=== PATIENT | female | born 1950 | race Two or more races ===

== ENCOUNTER 2018-10-18 13:42 | Inpatient (IN) | payer MEDICARE, MEDICAID ==
[~2018-10-18] VITALS: Ht 160 cm; Wt 64.4 kg
[2018-10-18 13:45] VITALS: BP 132/59
[2018-10-18] MEDS ORDERED: Morphine Sulfate 4mg/ml Inj (IV/IM USE ONLY) IVP ONE (13:45)
--- NOTE | 2018-10-18 13:52 | Emergency Room Report ---
History of Present Illness General Chief Complaint: Abdominal Pain Source: Patient Present Illness HPI The patient had surgery for a burst: 3 weeks ago. She's been vomiting intermittently and now constantly for the last 5 days. She's complaining about diffuse abdominal pain that's intermittent. It's crampy and when it's bad it's 10/10. She states she's been moving her bowels and also passing gas. She denies dysuria. She also denies fevers, chest pain, cough. She's been vomiting bile and there's been no blood. There is no blood in the stool also. Patient denies shortness of breath, leg swelling or calf pain, other joint pain , rashes (the wounds are healing well), headache. She's lost weight. She also feels weak and somewhat dizzy when she stands up. Allergies: Coded Allergies: No Known Allergies (Unverified , 10/18/18) Patient History Past Medical History: see triage record Past Surgical History: other - Abdominal surgery Social History: Denies: smoking, alcohol use, drug use Social History Narrative from [facility] Reviewed Nursing Documentation: PMH: Agreed; PSxH: Agreed Nursing Documentation-PMH Hx Hypertension: Yes Hx Diabetes: Yes Hx Gastrointestinal Problems: Yes - S/P COLON SURGERY Review of Systems All Other Systems: negative except mentioned in HPI Physical Exam Vital Signs Date Time Temp Pulse Resp B/P (MAP) Pulse Ox O2 Delivery O2 Flow Rate FiO2 10/18/18 13:39 98.1 84 18 125/72 98 Room Air Sp02 EP Interpretation: reviewed, normal General Appearance: well appearing, no apparent distress, GCS 15 Head: normocephalic, atraumatic Eyes: bilateral eye normal inspection, bilateral eye PERRL ENT: moist mucus membranes Neck: supple Respiratory: lungs clear, normal breath sounds Cardiovascular #1: regular rate, rhythm Cardiovascular #2: 2+ radial (R) Gastrointestinal: normal inspection, normal bowel sounds, soft, no mass, non- distended, tenderness - Reported but no guarding or rebound, other - Surgical wounds Genitourinary: no CVA tenderness Musculoskeletal: back normal, normal range of motion Neurologic: alert, oriented x3, grossly normal Psychiatric: mood/affect normal Skin: warm/dry, wd healing/no infection noted Medical Decision Making Diagnostic Impression: Primary Impression: Nausea & vomiting Qualified Codes: R11.2 - Nausea with vomiting, unspecified Additional Impressions: Abdominal pain Qualified Codes: R10.84 - Generalized abdominal pain UTI (urinary tract infection) Qualified Codes: N39.0 - Urinary tract infection, site not specified ER Course The patient presents 3 weeks post abdominal surgery with intractable vomiting. Differential includes small bowel obstruction, ileus, gastritis, pancreatitis amongst others. Evaluation will be with EKG, chest x-ray, abdominal films and labs. The patient will be treated with IV hydration and Zofran and morphine. EKG with rate 93 normal sinus rhythm left axis deviation and nonspecific ST-T wave changes. Chest x-ray no infiltrates. Abdomen with dilated loop of small bowel mid abdomen. White count is normal. CMP with elevated BUNs suggesting volume depletion. Urinalysis with pyuria. Rocephin is given for UTI. The patient still is nauseated and unable to tolerate oral liquids at this time. She's admitted to medical floor under the care of Dr. Meehan. She had been discussed with Dr. Flores who will consult if needed. At this time her abdomen is not surgical. Laboratory Tests Test 10/18/18 14:37 White Blood Count 6.4 K/UL (4.8-10.8) Red Blood Count 5.03 M/UL (4.20-5.40) Hemoglobin 13.2 G/DL (12.0-16.0) Hematocrit 39.3 % (37.0-47.0) Mean Corpuscular Volume 78 FL (80-99) L Mean Corpuscular Hemoglobin 26.3 PG (27.0-31.0) L Mean Corpuscular Hemoglobin Concent 33.6 G/DL (32.0-36.0) Red Cell Distribution Width 11.7 % (11.6-14.8) Platelet Count 322 K/UL (150-450) Mean Platelet Volume 6.2 FL (6.5-10.1) L Neutrophils (%) (Auto) 77.9 % (45.0-75.0) H Lymphocytes (%) (Auto) 12.9 % (20.0-45.0) L Monocytes (%) (Auto) 7.9 % (1.0-10.0) Eosinophils (%) (Auto) 0.6 % (0.0-3.0) Basophils (%) (Auto) 0.7 % (0.0-2.0) Prothrombin Time 11.9 SEC (9.30-11.50) H Prothrombin Time INR 1.1 (0.9-1.1) PTT 30 SEC (23-33) Urine Color Yellow Urine Appearance Clear Urine pH 5 (4.5-8.0) Urine Specific [place] 1.025 (1.005-1.035) Urine Protein 2+ (NEGATIVE) H Urine Glucose (UA) 2+ (NEGATIVE) H Urine Ketones 4+ (NEGATIVE) H Urine Blood 1+ (NEGATIVE) H Urine Nitrite Negative (NEGATIVE) Urine Bilirubin 2+ (NEGATIVE) H Urine Ictotest Negative (NEGATIVE) Urine Urobilinogen 4 MG/DL (0.0-1.0) H Urine Leukocyte Esterase 3+ (NEGATIVE) H Urine RBC 0-2 /HPF (0 - 2) Urine WBC 5-10 /HPF (0 - 2) H Urine Squamous Epithelial Cells Moderate /LPF (NONE/OCC) H Urine Calcium Oxalate Crystals Few /LPF (NONE) Urine Bacteria Few /HPF (NONE) Urine Mucus Few /LPF (NONE/OCC) H Sodium Level 139 MMOL/L (136-145) Potassium Level 3.5 MMOL/L (3.5-5.1) Chloride Level 103 MMOL/L (98-107) Carbon Dioxide Level 26 MMOL/L (21-32) Anion Gap 10 mmol/L (5-15) Blood Urea Nitrogen 23 mg/dL (7-18) H Creatinine 0.8 MG/DL (0.55-1.30) Estimate Glomerular Filtration Rate > 60 mL/min (>60) Glucose Level 230 MG/DL (74-106) H Lactic Acid Level 1.60 mmol/L (0.4-2.0) Calcium Level 9.2 MG/DL (8.5-10.1) Total Bilirubin 1.1 MG/DL (0.2-1.0) H Direct Bilirubin 0.3 MG/DL (0.0-0.3) Aspartate Amino Transferase (AST) 13 U/L (15-37) L Alanine Aminotransferase (ALT) 18 U/L (12-78) Alkaline Phosphatase 84 U/L (46-116) Troponin I 0.004 ng/mL (0.000-0.056) Total Protein 7.5 G/DL (6.4-8.2) Albumin 3.0 G/DL (3.4-5.0) L Globulin 4.5 g/dL Albumin/Globulin Ratio 0.7 (1.0-2.7) L Lipase 73 U/L (73-393) EKG Diagnostic Results Rate: normal Rhythm: NSR ST Segments: no acute changes - LAD nSsttw changes Rhythm Strip Diag. Results EP Interpretation: yes Rhythm: NSR, no PVC's, no ectopy Chest X-Ray Diagnostic Results Chest X-Ray Diagnostic Results : Chest X-Ray Ordered: Yes # of Views/Limited/Complete: 1 View Indication: Other EP Interpretation: Yes Interpretation: no consolidation, no effusion, no pneumothorax Impression: No acute disease Electronically Signed by: Electronically signed by Agustin Roblero MD Other X-Ray Diagnostic Results Other X-Ray Diagnostic Results : X-Ray ordered: Abdomen Indication: Pain EP Interpretation: Yes Interpretation: nonspecific bowel gas, other - gas in colon, dilated small bowel mid abdomen Impression: Other Electronically Signed by: Electronically signed by Agustin Roblero MD Status: improved Disposition: ADMITTED INPATIENT Condition: Serious Agustin Roblero MD Oct 18, 2018 13:52
[2018-10-18] MEDS ORDERED: Morphine Sulfate 4mg/ml Inj (IV/IM USE ONLY) ONE (14:47)
[2018-10-18 14:56] LABS: APPEARANCE,URINE CLEAR; BILIRUBIN, URINE 2+ (NEGATIVE); GLUCOSE, URINE (UA) 2+ (NEGATIVE); KETONES,URINE 4+ (NEGATIVE); LEUKOCYTE ESTERASE ,URINE 3+ (NEGATIVE); NITRITE,URINE NEGATIVE (NEGATIVE); PH,URINE 5 (4.5-8.0); PROTEIN,URINE 2+ (NEGATIVE); UROBILINOGEN,URINE 4 MG/DL (0.0-1.0)
[2018-10-18 14:58] LABS: BASOPHILS % (AUTO) 0.7 % (0.0-2.0); EOSINOPHILS % (AUTO) 0.6 % (0.0-3.0); HEMATOCRIT 39.3 % (37.0-47.0); HEMOGLOBIN 13.2 G/DL (12.0-16.0); LYMPHOCYTES % (AUTO) 12.9 % (20.0-45.0); MEAN CORPUSCULAR VOLUME 78 FL (80-99); MONOCYTES % (AUTO) 7.9 % (1.0-10.0); NEUTROPHILS % (AUTO) 77.9 % (45.0-75.0); PLATELET COUNT 322 K/UL (150-450); RED BLOOD COUNT 5.03 M/UL (4.20-5.40); RED CELL DISTRIBUTION WIDTH 11.7 % (11.6-14.8); WHITE BLOOD COUNT 6.4 K/UL (4.8-10.8)
[2018-10-18 14:59] LABS: COLOR,URINE YELLOW
[2018-10-18 15:01] LABS: ANION GAP 10 mmol/L (5-15); BLOOD UREA NITROGEN 23 mg/dL (7-18); CALCIUM 9.2 MG/DL (8.5-10.1); CARBON DIOXIDE 26 MMOL/L (21-32); CHLORIDE 103 MMOL/L (98-107); CREATININE 0.8 MG/DL (0.55-1.30); POTASSIUM 3.5 MMOL/L (3.5-5.1); SODIUM 139 MMOL/L (136-145)
[2018-10-18 15:04] LABS: INR 1.1 (0.9-1.1)
[2018-10-18] MEDS ORDERED: cefTRIAXone 1 GM in NS 55 ML IVPB ONE (15:15)
[2018-10-18 15:17] LABS: ALANINE AMINOTRANSFERASE 18 U/L (12-78); ALBUMIN/GLOBULIN RATIO 0.7 (1.0-2.7); ALKALINE PHOSPHATASE 84 U/L (46-116); ASPARTATE AMINO TRANSFERASE 13 U/L (15-37); BILIRUBIN,TOTAL 1.1 MG/DL (0.2-1.0)
[2018-10-18 15:18] LABS: BILIRUBIN,DIRECT 0.3 MG/DL (0.0-0.3)
[2018-10-18 16:34] VITALS: BP 118/77
[2018-10-18] MEDS ORDERED: UNOBMED (18:06)
[2018-10-18 19:50] VITALS: BP 124/67
[2018-10-18] MEDS ORDERED: Fleet's Enema 133ml RECTAL ONE (20:30)
[2018-10-18 21:00] VITALS: BP 133/63
[2018-10-18] MEDS: Piperacillin/Tazobactam 3.375 GM in NS 110 ML IVPB SCH (22:25)
[2018-10-19] VITALS: BP 110/63
--- NOTE | 2018-10-19 01:45 | History and Physical Report ---
DATE OF ADMISSION: 10/18/2018 HISTORY OF PRESENT ILLNESS: This is a 68-year-old female who was admitted today having small bowel obstruction, recurrent nausea, vomiting, and abdominal pain. The patient was unable to tolerate diet. The patient claims she has a little bit of bowel sounds and no poop. PAST MEDICAL HISTORY: As listed in H and P, history of small bowel obstruction, diabetes, and hypertension. ALLERGIES: NKA. MEDICATIONS: See the list. PHYSICAL EXAMINATION: VITAL SIGNS: Blood pressure 124/67, pulse 77, respirations 18, and temperature 98.1. HEENT: NAD. CHEST: Bilaterally clear. CARDIOVASCULAR: Regular rhythm. No gallop. No murmur. ABDOMEN: Soft. Positive bowel sounds. Open surgical wound on the mid abdomen, which I closed. GENITOURINARY: Examination deferred. LABORATORY EXAMINATION: White count 6.4, hemoglobin 13. Chemistry panel, sodium 139, potassium 3.5, BUN 23, creatinine 0.8, and glucose 230. Urine test also is positive for 3+ leukocyte esterase, 2+ bilirubin, and 4+ ketones. ASSESSMENT: 1. Small bowel obstruction. 2. UTI. 3. Dehydration. 4. Diabetes. PLAN: We will admit on medical floor. Start clear liquid diet. IV fluid, heparin 75 mL/hour, sliding scale, Zosyn. Consider surgery and GI consult. Continue sliding scale medium dose, Accu-Chek daily before meals and at bedtime. Also given Fleet Enema. Surgery consult. Mark Meehan M.D. DR: LESLEE JOB#: [id number] CC:
[2018-10-19 04:00] VITALS: BP 122/63
[2018-10-19] MEDS: Piperacillin/Tazobactam 3.375 GM in NS 110 ML IVPB SCH ×2 (06:04→13:58)
[2018-10-19] MEDS: NovoLOG Insulin Flexpen SUBQ SCH ×4 (06:24→20:48)
[2018-10-19 06:45] LABS: EOSINOPHILS % (AUTO) 2.5 % (0.0-3.0); HEMATOCRIT 33.5 % (37.0-47.0); HEMOGLOBIN 11.3 G/DL (12.0-16.0); LYMPHOCYTES % (AUTO) 22.3 % (20.0-45.0); MEAN CORPUSCULAR VOLUME 78 FL (80-99); MONOCYTES % (AUTO) 11.1 % (1.0-10.0); PLATELET COUNT 270 K/UL (150-450); RED BLOOD COUNT 4.28 M/UL (4.20-5.40); WHITE BLOOD COUNT 5.1 K/UL (4.8-10.8)
[2018-10-19 06:54] LABS: ALANINE AMINOTRANSFERASE 13 U/L (12-78); ALBUMIN 2.5 G/DL (3.4-5.0); ALBUMIN/GLOBULIN RATIO 0.7 (1.0-2.7); ALKALINE PHOSPHATASE 68 U/L (46-116); ANION GAP 9 mmol/L (5-15); ASPARTATE AMINO TRANSFERASE 11 U/L (15-37); BLOOD UREA NITROGEN 12 mg/dL (7-18); CALCIUM 8.1 MG/DL (8.5-10.1); CARBON DIOXIDE 26 MMOL/L (21-32); CHLORIDE 106 MMOL/L (98-107); CREATININE 0.6 MG/DL (0.55-1.30); POTASSIUM 3.1 MMOL/L (3.5-5.1); SODIUM 141 MMOL/L (136-145)
[2018-10-19 08:00] VITALS: BP 132/69
--- NOTE | 2018-10-19 11:43 | Diagnostic Imaging Report ---
Indication: Chest pain Comparison: None A single view chest radiograph was obtained. Findings: No definite infiltrate or pulmonary vascular congestion identified. The heart is enlarged. The aorta is mildly enlarged consistent with atherosclerotic vascular disease. The bones are osteopenic. Impression: No acute disease
[2018-10-19 12:00] VITALS: BP 118/59
--- NOTE | 2018-10-19 12:16 | GI Initial Consult Note ---
History of Present Illness General Date patient seen: Oct 19, 2018 Reason for Hospitalization: Abdominal Pain Referring physician: ELIZABETH CARPIO Reason for Consultation: ABDOMINAL PAIN Present Illness HPI The patient had surgery for a burst: 3 weeks ago. She's been vomiting intermittently and now constantly for the last 5 days. She's complaining about diffuse abdominal pain that's intermittent. It's crampy and when it's bad it's 10/10. She states she's been moving her bowels and also passing gas. She denies dysuria. She also denies fevers, chest pain, cough. She's been vomiting bile and there's been no blood. There is no blood in the stool also. Patient denies shortness of breath, leg swelling or calf pain, other joint pain , rashes (the wounds are healing well), headache. She's lost weight. She also feels weak and somewhat dizzy when she stands up. GI consulted for abdominal pain. Pt seen, awake A&Ox4 NAD stating her abdominal pain has slightly improved. Noted surgical sutures around the umbilical area with recent abdominal surgery. States her N/V has resolved at this time. Denies any constipation or diarrhea. Home Meds Reported Medications Unable to Obtain Medications (UNABLE TO OBTAIN MEDS) 1 Ea Ea 10/18/18 Med list reviewed/reconciled: Yes Allergies: Coded Allergies: No Known Allergies (Unverified , 10/18/18) Patient History History Provided By: Patient, Medical Record PMH Narrative Past Medical History: see triage record Past Surgical History: other - Abdominal surgery Social History: Denies: smoking, alcohol use, drug use Social History Narrative from [facility] Reviewed Nursing Documentation: PMH: Agreed; PSxH: Agreed Nursing Documentation-PMH Hx Hypertension: Yes Hx Diabetes: Yes Hx Gastrointestinal Problems: Yes - S/P COLON SURGERY Past Surgical History: other - abdominal surgery Social History: Denies: smoking, alcohol use, drug use, other Review of Systems All Other Systems: negative except mentioned in HPI Physical Exam Vital Signs Date Time Temp Pulse Resp B/P (MAP) Pulse Ox O2 Delivery O2 Flow Rate FiO2 10/18/18 13:39 98.1 84 18 125/72 98 Room Air Sp02 EP Interpretation: reviewed, normal Labs Laboratory Tests Test 10/18/18 14:37 10/19/18 05:55 White Blood Count 6.4 K/UL (4.8-10.8) 5.1 K/UL (4.8-10.8) Red Blood Count 5.03 M/UL (4.20-5.40) 4.28 M/UL (4.20-5.40) Hemoglobin 13.2 G/DL (12.0-16.0) 11.3 G/DL (12.0-16.0) L Hematocrit 39.3 % (37.0-47.0) 33.5 % (37.0-47.0) L Mean Corpuscular Volume 78 FL (80-99) L 78 FL (80-99) L Mean Corpuscular Hemoglobin 26.3 PG (27.0-31.0) L 26.4 PG (27.0-31.0) L Mean Corpuscular Hemoglobin Concent 33.6 G/DL (32.0-36.0) 33.8 G/DL (32.0-36.0) Red Cell Distribution Width 11.7 % (11.6-14.8) 12.0 % (11.6-14.8) Platelet Count 322 K/UL (150-450) 270 K/UL (150-450) Mean Platelet Volume 6.2 FL (6.5-10.1) L 6.6 FL (6.5-10.1) Neutrophils (%) (Auto) 77.9 % (45.0-75.0) H 63.0 % (45.0-75.0) Lymphocytes (%) (Auto) 12.9 % (20.0-45.0) L 22.3 % (20.0-45.0) Monocytes (%) (Auto) 7.9 % (1.0-10.0) 11.1 % (1.0-10.0) H Eosinophils (%) (Auto) 0.6 % (0.0-3.0) 2.5 % (0.0-3.0) Basophils (%) (Auto) 0.7 % (0.0-2.0) 1.0 % (0.0-2.0) Prothrombin Time 11.9 SEC (9.30-11.50) H Prothromb Time International Ratio 1.1 (0.9-1.1) Activated Partial Thromboplast Time 30 SEC (23-33) Urine Color Yellow Urine Appearance Clear Urine pH 5 (4.5-8.0) Urine Specific [place] 1.025 (1.005-1.035) Urine Protein 2+ (NEGATIVE) H Urine Glucose (UA) 2+ (NEGATIVE) H Urine Ketones 4+ (NEGATIVE) H Urine Blood 1+ (NEGATIVE) H Urine Nitrite Negative (NEGATIVE) Urine Bilirubin 2+ (NEGATIVE) H Urine Ictotest Negative (NEGATIVE) Urine Urobilinogen 4 MG/DL (0.0-1.0) H Urine Leukocyte Esterase 3+ (NEGATIVE) H Urine RBC 0-2 /HPF (0 - 2) Urine WBC 5-10 /HPF (0 - 2) H Urine Squamous Epithelial Cells Moderate /LPF (NONE/OCC) H Urine Calcium Oxalate Crystals Few /LPF (NONE) Urine Bacteria Few /HPF (NONE) Urine Mucus Few /LPF (NONE/OCC) H Sodium Level 139 MMOL/L (136-145) 141 MMOL/L (136-145) Potassium Level 3.5 MMOL/L (3.5-5.1) 3.1 MMOL/L (3.5-5.1) L Chloride Level 103 MMOL/L (98-107) 106 MMOL/L (98-107) Carbon Dioxide Level 26 MMOL/L (21-32) 26 MMOL/L (21-32) Anion Gap 10 mmol/L (5-15) 9 mmol/L (5-15) Blood Urea Nitrogen 23 mg/dL (7-18) H 12 mg/dL (7-18) Creatinine 0.8 MG/DL (0.55-1.30) 0.6 MG/DL (0.55-1.30) Estimat Glomerular Filtration Rate > 60 mL/min (>60) > 60 mL/min (>60) Glucose Level 230 MG/DL (74-106) H 141 MG/DL (74-106) H Lactic Acid Level 1.60 mmol/L (0.4-2.0) Calcium Level 9.2 MG/DL (8.5-10.1) 8.1 MG/DL (8.5-10.1) L Total Bilirubin 1.1 MG/DL (0.2-1.0) H 1.0 MG/DL (0.2-1.0) Direct Bilirubin 0.3 MG/DL (0.0-0.3) Aspartate Amino Transf (AST/SGOT) 13 U/L (15-37) L 11 U/L (15-37) L Alanine Aminotransferase (ALT/SGPT) 18 U/L (12-78) 13 U/L (12-78) Alkaline Phosphatase 84 U/L (46-116) 68 U/L (46-116) Troponin I 0.004 ng/mL (0.000-0.056) Total Protein 7.5 G/DL (6.4-8.2) 6.1 G/DL (6.4-8.2) L Albumin 3.0 G/DL (3.4-5.0) L 2.5 G/DL (3.4-5.0) L Globulin 4.5 g/dL 3.6 g/dL Albumin/Globulin Ratio 0.7 (1.0-2.7) L 0.7 (1.0-2.7) L Lipase 73 U/L (73-393) General Appearance: well appearing, no apparent distress, alert Head: normocephalic EENT: PERRL/EOMI, normal ENT inspection Neck: supple Respiratory: normal breath sounds, no respiratory distress Cardiovascular: normal rate Gastrointestinal: normal inspection, non tender, soft, normal bowel sounds, non -distended Rectal: deferred Genitourinary: no CVA tenderness Musculoskeletal: normal inspection, back normal Neurologic: normal inspection, alert, oriented x3, responsive Psychiatric: normal inspection, judgement/insight normal, memory normal Skin: normal inspection, normal color, no rash, warm/dry, palpation normal, well hydrated Lymphatic: normal inspection, no adenopathy Current Medications Current Medications Medications (Trade) Dose Ordered Sig/Leatha Route PRN Reason Start Time Stop Time Status Last Admin Dose Admin Dextrose (Dextrose 50%) 25 ml Q30M PRN IV Hypoglycemia 10/18/18 22:30 11/17/18 22:29 Dextrose (Dextrose 50%) 50 ml Q30M PRN IV Hypoglycemia 10/18/18 22:30 11/17/18 22:29 Insulin Aspart (NovoLOG) BEFORE MEALS AND HS SUBQ 10/19/18 06:30 11/18/18 06:29 10/19/18 06:24 Morphine Sulfate (Morphine Sulfate) 0.5 mg Q4H PRN IVP Severe Pain (Pain Scale 7-10) 10/18/18 20:30 10/25/18 20:29 10/19/18 00:00 Ondansetron HCl (Zofran) 4 mg Q4H PRN IVP Nausea & Vomiting 10/18/18 20:30 11/17/18 20:29 10/19/18 11:08 Piperacillin Sod/ Tazobactam Sod 3.375 gm/Sodium Chloride 110 ml @ 27.5 mls/hr EVERY 8 HOURS IVPB 10/18/18 22:00 10/23/18 21:59 10/19/18 06:04 Sodium Chloride 1,000 ml @ 100 mls/hr Q10H IV 10/18/18 20:29 11/17/18 20:28 10/18/18 20:42 GI: Plan Problems: (1) H/O abdominal surgery (2) Abdominal pain (3) Nausea & vomiting (4) Dehydration (5) Weight loss Plan history of recent abdominal surgery N/V has resolved at this time KUB performed in ED >> gas in colon, dilated small bowel mid abdomen fu surgical recs APCT ordered pain mgmt zofran prn IV hydration NPO fu labs Discussed with Dr. Benton. Thank you for this patient referral, we will follow. The patient was seen and examined at bedside and all new and available data was reviewed in the patients chart. I agree with the above findings, impression and plan. (Patient seen earlier today. Signature stamp does not reflect patient encounter time.). - MD Padmaja Walker,[facility] INFECTIOUS DISEASE TECHNICIAN Oct 19, 2018 12:16
[2018-10-19] MEDS ORDERED: Isovue-300 100ml vial INJ PRN (12:30)
--- NOTE | 2018-10-19 14:05 | Consultation ---
History of Present Illness General Chief Complaint: Abdominal Pain Referring physician: ELIZABETH CARPIO Reason for Consultation: ABDOMINAL PAIN Present Illness HPI 68-year-old female who was admitted for having small bowel obstruction , recurrent nausea, vomiting, and abdominal pain. the pt has anxiety and is severely worried about her current medical condition. the pt stated that she was unable to sleep the night before no si/hi Allergies: Coded Allergies: No Known Allergies (Unverified , 10/18/18) Medication History Miscellaneous Medications Unable to Obtain Medications (Unable To Obtain Meds), (Reported) Patient History History Provided By: Patient, Medical Record, PMD Healthcare decision maker N Resuscitation status Full Code Advanced Directive on File Past Medical/Surgical History Past Medical/Surgical History: (1) UTI (urinary tract infection) (2) Nausea & vomiting (3) Abdominal pain (4) Dehydration (5) Weight loss Review of Systems Psychiatric: Reports: prior hx, anxiety Physical Exam General Appearance: alert Neurologic: oriented x 3, responsive, depressed affect Last 24 Hour Vital Signs Date Time Temp Pulse Resp B/P (MAP) Pulse Ox O2 Delivery O2 Flow Rate FiO2 10/19/18 12:00 98.2 90 18 118/59 (78) 95 10/19/18 09:00 Room Air 10/19/18 08:00 97.3 84 19 132/69 (90) 94 10/19/18 04:00 98.1 95 19 122/63 (82) 94 10/19/18 00:00 97.6 93 20 110/63 (79) 97 10/18/18 21:00 97.7 87 20 133/63 (86) 95 10/18/18 21:00 Room Air 10/18/18 20:47 Room Air 10/18/18 20:13 98.1 77 18 124/67 100 Room Air 10/18/18 19:50 98.1 77 18 124/67 100 Room Air 10/18/18 16:34 98.7 81 16 118/77 100 Room Air Intake and Output 10/18/18 10/19/18 19:00 07:00 Intake Total 2055 ml 1054.16 ml Balance 2055 ml 1054.16 ml Intake Oral 250 ml IV Total 2055 ml 804.16 ml # Voids 1 1 # Bowel Movements 1 Laboratory Tests Test 10/18/18 14:37 10/19/18 05:55 White Blood Count 6.4 K/UL (4.8-10.8) 5.1 K/UL (4.8-10.8) Red Blood Count 5.03 M/UL (4.20-5.40) 4.28 M/UL (4.20-5.40) Hemoglobin 13.2 G/DL (12.0-16.0) 11.3 G/DL (12.0-16.0) L Hematocrit 39.3 % (37.0-47.0) 33.5 % (37.0-47.0) L Mean Corpuscular Volume 78 FL (80-99) L 78 FL (80-99) L Mean Corpuscular Hemoglobin 26.3 PG (27.0-31.0) L 26.4 PG (27.0-31.0) L Mean Corpuscular Hemoglobin Concent 33.6 G/DL (32.0-36.0) 33.8 G/DL (32.0-36.0) Red Cell Distribution Width 11.7 % (11.6-14.8) 12.0 % (11.6-14.8) Platelet Count 322 K/UL (150-450) 270 K/UL (150-450) Mean Platelet Volume 6.2 FL (6.5-10.1) L 6.6 FL (6.5-10.1) Neutrophils (%) (Auto) 77.9 % (45.0-75.0) H 63.0 % (45.0-75.0) Lymphocytes (%) (Auto) 12.9 % (20.0-45.0) L 22.3 % (20.0-45.0) Monocytes (%) (Auto) 7.9 % (1.0-10.0) 11.1 % (1.0-10.0) H Eosinophils (%) (Auto) 0.6 % (0.0-3.0) 2.5 % (0.0-3.0) Basophils (%) (Auto) 0.7 % (0.0-2.0) 1.0 % (0.0-2.0) Prothrombin Time 11.9 SEC (9.30-11.50) H Prothromb Time International Ratio 1.1 (0.9-1.1) Activated Partial Thromboplast Time 30 SEC (23-33) Urine Color Yellow Urine Appearance Clear Urine pH 5 (4.5-8.0) Urine Specific [place] 1.025 (1.005-1.035) Urine Protein 2+ (NEGATIVE) H Urine Glucose (UA) 2+ (NEGATIVE) H Urine Ketones 4+ (NEGATIVE) H Urine Blood 1+ (NEGATIVE) H Urine Nitrite Negative (NEGATIVE) Urine Bilirubin 2+ (NEGATIVE) H Urine Ictotest Negative (NEGATIVE) Urine Urobilinogen 4 MG/DL (0.0-1.0) H Urine Leukocyte Esterase 3+ (NEGATIVE) H Urine RBC 0-2 /HPF (0 - 2) Urine WBC 5-10 /HPF (0 - 2) H Urine Squamous Epithelial Cells Moderate /LPF (NONE/OCC) H Urine Calcium Oxalate Crystals Few /LPF (NONE) Urine Bacteria Few /HPF (NONE) Urine Mucus Few /LPF (NONE/OCC) H Sodium Level 139 MMOL/L (136-145) 141 MMOL/L (136-145) Potassium Level 3.5 MMOL/L (3.5-5.1) 3.1 MMOL/L (3.5-5.1) L Chloride Level 103 MMOL/L (98-107) 106 MMOL/L (98-107) Carbon Dioxide Level 26 MMOL/L (21-32) 26 MMOL/L (21-32) Anion Gap 10 mmol/L (5-15) 9 mmol/L (5-15) Blood Urea Nitrogen 23 mg/dL (7-18) H 12 mg/dL (7-18) Creatinine 0.8 MG/DL (0.55-1.30) 0.6 MG/DL (0.55-1.30) Estimat Glomerular Filtration Rate > 60 mL/min (>60) > 60 mL/min (>60) Glucose Level 230 MG/DL (74-106) H 141 MG/DL (74-106) H Lactic Acid Level 1.60 mmol/L (0.4-2.0) Calcium Level 9.2 MG/DL (8.5-10.1) 8.1 MG/DL (8.5-10.1) L Total Bilirubin 1.1 MG/DL (0.2-1.0) H 1.0 MG/DL (0.2-1.0) Direct Bilirubin 0.3 MG/DL (0.0-0.3) Aspartate Amino Transf (AST/SGOT) 13 U/L (15-37) L 11 U/L (15-37) L Alanine Aminotransferase (ALT/SGPT) 18 U/L (12-78) 13 U/L (12-78) Alkaline Phosphatase 84 U/L (46-116) 68 U/L (46-116) Troponin I 0.004 ng/mL (0.000-0.056) Total Protein 7.5 G/DL (6.4-8.2) 6.1 G/DL (6.4-8.2) L Albumin 3.0 G/DL (3.4-5.0) L 2.5 G/DL (3.4-5.0) L Globulin 4.5 g/dL 3.6 g/dL Albumin/Globulin Ratio 0.7 (1.0-2.7) L 0.7 (1.0-2.7) L Lipase 73 U/L (73-393) Microbiology Date/Time Source Procedure Growth Status 10/18/18 18:00 Rectum VRE Culture Pending Resulted 10/18/18 18:00 Rectum - Preliminary Resulted Height (Feet): 5 Height (Inches): 3.00 Weight (Pounds): 130 Medications Current Medications Medications (Trade) Dose Ordered Sig/Leatha Route PRN Reason Start Time Stop Time Status Last Admin Dose Admin Barium Sulfate (Readi-Cat 2) 450 ml NOW PRN ORAL Radiology Procedure 10/19/18 12:30 10/21/18 12:22 Dextrose (Dextrose 50%) 25 ml Q30M PRN IV Hypoglycemia 10/18/18 22:30 11/17/18 22:29 Dextrose (Dextrose 50%) 50 ml Q30M PRN IV Hypoglycemia 10/18/18 22:30 11/17/18 22:29 Insulin Aspart (NovoLOG) BEFORE MEALS AND HS SUBQ 10/19/18 06:30 11/18/18 06:29 10/19/18 06:24 Iopamidol (Isovue-300 100ml) 100 ml NOW PRN INJ Radiology Procedure 10/19/18 12:30 10/21/18 12:29 Morphine Sulfate (Morphine Sulfate) 0.5 mg Q4H PRN IVP Severe Pain (Pain Scale 7-10) 10/18/18 20:30 10/25/18 20:29 10/19/18 00:00 Ondansetron HCl (Zofran) 4 mg Q4H PRN IVP Nausea & Vomiting 10/18/18 20:30 11/17/18 20:29 10/19/18 11:08 Piperacillin Sod/ Tazobactam Sod 3.375 gm/Sodium Chloride 110 ml @ 27.5 mls/hr EVERY 8 HOURS IVPB 10/18/18 22:00 10/23/18 21:59 10/19/18 13:58 Sodium Chloride 1,000 ml @ 100 mls/hr Q10H IV 10/18/18 20:29 11/17/18 20:28 10/18/18 20:42 Assessment/Plan Assessment/Plan anxiety d/o ativan prn the pt was provided with Anna Rios MD Oct 19, 2018 14:05
[2018-10-19] MEDS: Morphine Sulfate 2mg/ml Inj IVP PRN ×2 (15:02)
--- NOTE | 2018-10-19 15:26 | Consultation ---
History of Present Illness General Date patient seen: Oct 19, 2018 Chief Complaint: Abdominal Pain Referring physician: ELIZABETH CARPIO Reason for Consultation: ABDOMINAL PAIN Present Illness HPI 68F presented to ED with complaints of abdominal pain. States abdominal surgery at [facility] 2-3 weeks ago and since has been having abdominal pain, nausea, emesis. intermittent flatus and BM. Pain cramping generalized pain. non bloody emesis. Came to ED for evaluation. labs okay. KUB noted. Surgery called to evaluate for possible SBO. patient seen, chart reviewed, patient examined. does not know why she had surgery but states for colon issue ?mass? perf? Allergies: Coded Allergies: No Known Allergies (Unverified , 10/18/18) Medication History Miscellaneous Medications Unable to Obtain Medications (Unable To Obtain Meds), (Reported) Patient History History Provided By: Patient, Medical Record, PMD Healthcare decision maker N Resuscitation status Full Code Advanced Directive on File Past Medical/Surgical History Past Medical/Surgical History: (1) UTI (urinary tract infection) (2) Nausea & vomiting (3) Abdominal pain (4) Dehydration (5) Weight loss Review of Systems All Other Systems: negative except mentioned in HPI Physical Exam General Appearance: no apparent distress, alert Lines, tubes and drains: peripheral HEENT: mucous membranes moist Neck: normal inspection Respiratory/Chest: normal breath sounds, no respiratory distress, no accessory muscle use Cardiovascular/Chest: normal rate Abdomen: soft, hypoactive bowel sounds, guarding, tender Extremities: normal inspection Skin Exam: warm/dry Neurologic: alert, responsive Last 24 Hour Vital Signs Date Time Temp Pulse Resp B/P (MAP) Pulse Ox O2 Delivery O2 Flow Rate FiO2 10/19/18 12:00 98.2 90 18 118/59 (78) 95 10/19/18 09:00 Room Air 10/19/18 08:00 97.3 84 19 132/69 (90) 94 10/19/18 04:00 98.1 95 19 122/63 (82) 94 10/19/18 00:00 97.6 93 20 110/63 (79) 97 10/18/18 21:00 97.7 87 20 133/63 (86) 95 10/18/18 21:00 Room Air 10/18/18 20:47 Room Air 10/18/18 20:13 98.1 77 18 124/67 100 Room Air 10/18/18 19:50 98.1 77 18 124/67 100 Room Air 10/18/18 16:34 98.7 81 16 118/77 100 Room Air Intake and Output 10/18/18 10/19/18 19:00 07:00 Intake Total 2055 ml 1054.16 ml Balance 2055 ml 1054.16 ml Intake Oral 250 ml IV Total 2055 ml 804.16 ml # Voids 1 1 # Bowel Movements 1 Laboratory Tests Test 10/19/18 05:55 White Blood Count 5.1 K/UL (4.8-10.8) Red Blood Count 4.28 M/UL (4.20-5.40) Hemoglobin 11.3 G/DL (12.0-16.0) L Hematocrit 33.5 % (37.0-47.0) L Mean Corpuscular Volume 78 FL (80-99) L Mean Corpuscular Hemoglobin 26.4 PG (27.0-31.0) L Mean Corpuscular Hemoglobin Concent 33.8 G/DL (32.0-36.0) Red Cell Distribution Width 12.0 % (11.6-14.8) Platelet Count 270 K/UL (150-450) Mean Platelet Volume 6.6 FL (6.5-10.1) Neutrophils (%) (Auto) 63.0 % (45.0-75.0) Lymphocytes (%) (Auto) 22.3 % (20.0-45.0) Monocytes (%) (Auto) 11.1 % (1.0-10.0) H Eosinophils (%) (Auto) 2.5 % (0.0-3.0) Basophils (%) (Auto) 1.0 % (0.0-2.0) Sodium Level 141 MMOL/L (136-145) Potassium Level 3.1 MMOL/L (3.5-5.1) L Chloride Level 106 MMOL/L (98-107) Carbon Dioxide Level 26 MMOL/L (21-32) Anion Gap 9 mmol/L (5-15) Blood Urea Nitrogen 12 mg/dL (7-18) Creatinine 0.6 MG/DL (0.55-1.30) Estimat Glomerular Filtration Rate > 60 mL/min (>60) Glucose Level 141 MG/DL (74-106) H Calcium Level 8.1 MG/DL (8.5-10.1) L Total Bilirubin 1.0 MG/DL (0.2-1.0) Aspartate Amino Transf (AST/SGOT) 11 U/L (15-37) L Alanine Aminotransferase (ALT/SGPT) 13 U/L (12-78) Alkaline Phosphatase 68 U/L (46-116) Total Protein 6.1 G/DL (6.4-8.2) L Albumin 2.5 G/DL (3.4-5.0) L Globulin 3.6 g/dL Albumin/Globulin Ratio 0.7 (1.0-2.7) L Microbiology Date/Time Source Procedure Growth Status 10/18/18 18:00 Rectum VRE Culture Pending Resulted 10/18/18 18:00 Rectum - Preliminary Resulted Height (Feet): 5 Height (Inches): 3.00 Weight (Pounds): 130 Medications Current Medications Medications (Trade) Dose Ordered Sig/Leatha Route PRN Reason Start Time Stop Time Status Last Admin Dose Admin Barium Sulfate (Readi-Cat 2) 450 ml NOW PRN ORAL Radiology Procedure 10/19/18 12:30 10/21/18 12:22 Dextrose (Dextrose 50%) 25 ml Q30M PRN IV Hypoglycemia 10/18/18 22:30 11/17/18 22:29 Dextrose (Dextrose 50%) 50 ml Q30M PRN IV Hypoglycemia 10/18/18 22:30 11/17/18 22:29 Insulin Aspart (NovoLOG) BEFORE MEALS AND HS SUBQ 10/19/18 06:30 11/18/18 06:29 10/19/18 06:24 Iopamidol (Isovue-300 100ml) 100 ml NOW PRN INJ Radiology Procedure 10/19/18 12:30 10/21/18 12:29 Morphine Sulfate (Morphine Sulfate) 0.5 mg Q4H PRN IVP Severe Pain (Pain Scale 7-10) 10/18/18 20:30 10/25/18 20:29 10/19/18 15:02 Ondansetron HCl (Zofran) 4 mg Q4H PRN IVP Nausea & Vomiting 10/18/18 20:30 11/17/18 20:29 10/19/18 11:08 Piperacillin Sod/ Tazobactam Sod 3.375 gm/Sodium Chloride 110 ml @ 27.5 mls/hr EVERY 8 HOURS IVPB 10/18/18 22:00 10/23/18 21:59 10/19/18 13:58 Sodium Chloride 1,000 ml @ 100 mls/hr Q10H IV 10/18/18 20:29 11/17/18 20:28 10/18/18 20:42 Assessment/Plan Problem List: (1) Abdominal pain Assessment & Plan: likely post op ileus n/v improved currently labs okay abd soft, mild distention, tender/guarding but no peritonitis. surgical wounds c/d/i -Agree with CT scan A/P -NPO -IV fluids -will follow with recs. thank you ICD Codes: R10.9 - Unspecified abdominal pain SNOMED: 27394088 Qualifiers: Qualified Codes: R10.84 - Generalized abdominal pain Status: stable José Miguel Flores Oct 19, 2018 15:26
[2018-10-19 16:00] VITALS: BP 122/67
[2018-10-19] MEDS ORDERED: Cefepime HCl 1 GM in D5W 55 ML IVPB SCH (17:00)
[2018-10-19 20:00] VITALS: BP 131/72
--- NOTE | 2018-10-19 23:30 | Progress Note ---
DATE: 10/19/2018 NOTE: POOR AUDIO SUBJECTIVE: This is a nausea and vomiting is improving. . OBJECTIVE: VITAL SIGNS: Otherwise, vital signs are stable. CHEST: Bilaterally clear. CARDIOVASCULAR: Irregular rhythm. ABDOMEN: Soft. Mild tenderness. NEUROLOGICAL: No focal deficits. ASSESSMENT AND PLAN: 1. Encephalopathy. 2. Possible ileus. 3. . 4. . 5. Hypertension. Will continue with liquid diet. Get GI consult and Surgery consult. 6. Continue liquid diet. Continue antibiotics, IV fluids. Mark Meehan M.D. DR: RADHA JOB#: [id number] CC:
--- NOTE | 2018-10-19 23:30 | Consultation ---
DATE OF CONSULTATION: 10/19/2018 INFECTIOUS DISEASE CONSULTATION: CONSULTING PHYSICIAN: Tahir Cervantes M.D. REFERRING PHYSICIAN: Bertin Meehan M.D. REASON FOR CONSULTATION: Urinary tract infection, recommendation for antibiotics treatment. HISTORY OF PRESENT ILLNESS: The patient is a 68-year-old female with no significant past medical history except colon mass, status post colon surgery done on 09/29/2018 presented to [facility] emergency room for progressive abdominal pain, nausea, and vomiting for the last 5 days. The patient had a colonoscopy in July, which showed polyps and possibly hemorrhoids as per her report. So, she was scheduled for colon surgery on 09/29/2018, which she had it done at [place] laparoscopically with colon resection. The patient developed abdominal pain, which has been progressive right after her surgery for the last 3 weeks. She developed also nausea and vomiting, which has been constant. The patient unable to tolerate any oral intake. So, she was sent to the emergency room for evaluation. In the ED, the patient had a temperature of 98.1 with a pulse of 84. Chest x-ray did not show any acute infiltration. The patient had an urinalysis, which showed evidence of infection. So, Infectious Disease consultation was requested for antibiotics treatment and further management. REVIEW OF SYSTEMS: A 14-point of systems reviewed were all negative apart from the one I mentioned above in my History and Physical. PAST MEDICAL HISTORY: Significant for colon polyps, hemorrhoids, status post colon surgery. PAST SURGICAL HISTORY: She had colon surgery on 09/29/2018 for possible colon tumor. SOCIAL HISTORY: The patient originally from [facility]. Denied using any drugs, tobacco, or alcohol. She lives at home with family. FAMILY HISTORY: Noncontributory. ALLERGIES: No known drug allergy. MEDICATIONS: The patient was started on Zosyn by the primary provider. For the rest of her medications, please refer to [facility]. LABORATORY DATA: Showed white count of 5.1, hemoglobin of 11.3, and platelet count of 270,000. BUN of 12 and creatinine of 0.6. AST of 11 and ALT of 13. Urinalysis showed +3 leukocyte esterase, wbcs 5 to 10, and few bacteria. IMAGING: Chest x-ray showed no acute disease. PHYSICAL EXAMINATION: VITAL SIGNS: Temperature 98.2, pulse 90, respirations 18, blood pressure 118/59, and saturation 95% on room air. GENERAL: Middle-aged female, lying in bed, awake, alert, responsive, not in acute distress. Complained of abdominal pain. HEENT: Normocephalic and atraumatic. Pupils are reactive to light equally. Moist oral mucosa. No exudate or thrush. NECK: Supple. No lymphadenopathy. Trachea is midline. CARDIOVASCULAR: Regular rate and rhythm. No murmur or gallop. LUNGS: Clear bilaterally. No wheezing or rhonchi. Diminished breathing sounds at the bases. ABDOMEN: Soft. Distended. Tender in the periumbilical area. Absent bowel sounds. Old surgical scar wound in the umbilical area clean and dry without any drainage or dehiscence. No ascites. EXTREMITIES: No edema or cyanosis. ASSESSMENT AND RECOMMENDATION: 1. Urinary tract infection. We will switch Zosyn to cefepime at this point pending urine culture results, which was not sent. We will order urine culture at this point. 2. Abdominal pain. Rule out obstruction. Continue supportive care with IV fluid hydration, pain management, and NPO for now. Surgery is following. 3. Nausea and vomiting, suspect due to the above. Continue supportive care with antinausea medicine and hydration as needed. Thank you for the consult. ID will continue to follow. Please feel free to call with any question. Tahir Cervantes M.D. DR: MEIR JOB#: [id number] CC:
[2018-10-20] VITALS: BP 109/70
[2018-10-20 04:00] VITALS: BP 126/75
[2018-10-20] MEDS: NovoLOG Insulin Flexpen SUBQ SCH ×4 (06:30→20:41)
[2018-10-20 08:00] VITALS: BP 104/20
[2018-10-20 09:00] LABS: EOSINOPHILS % (AUTO) 2.5 % (0.0-3.0); HEMATOCRIT 37.3 % (37.0-47.0); HEMOGLOBIN 12.7 G/DL (12.0-16.0); MEAN CORPUSCULAR VOLUME 78 FL (80-99); MONOCYTES % (AUTO) 11.7 % (1.0-10.0); NEUTROPHILS % (AUTO) 58.9 % (45.0-75.0); PLATELET COUNT 279 K/UL (150-450); RED BLOOD COUNT 4.77 M/UL (4.20-5.40); RED CELL DISTRIBUTION WIDTH 11.7 % (11.6-14.8); WHITE BLOOD COUNT 4.4 K/UL (4.8-10.8)
[2018-10-20 09:16] LABS: ANION GAP 10 mmol/L (5-15); BLOOD UREA NITROGEN 6 mg/dL (7-18); CALCIUM 8.3 MG/DL (8.5-10.1); CARBON DIOXIDE 26 MMOL/L (21-32); CHLORIDE 106 MMOL/L (98-107); CREATININE 0.5 MG/DL (0.55-1.30); PHOSPHORUS 2.4 MG/DL (2.5-4.9); POTASSIUM 2.9 MMOL/L (3.5-5.1); SODIUM 142 MMOL/L (136-145)
--- NOTE | 2018-10-20 11:52 | Consultation ---
Consult Note Consult Note HEMATOLOGY-ONCOLOGY CONSULTATION REFERRING PHYSICIAN: Bertin Meehan REASON FOR CONSULT: Leukopenia, colon ca DATE OF CONSULT: 10/20/2018 HISTORY OF PRESENT ILLNESS: The patient is a 68-year-old female with no significant past medical history except colon mass, status post colon surgery done on 09/29/[address] [facility] emergency room for progressive abdominal pain, nausea, and vomiting for the last 5 days. The patient had a colonoscopy in July, which showed polyps and possibly hemorrhoids as per her report. Pt had colon surgery on 09/29/2018, at [place] laparoscopically with colon resection. The patient developed abdominal pain, which has been progressive right after her surgery for the last 3 weeks. She developed also nausea and vomiting, which has been constant. The patient is unable to tolerate any oral intake. She was sent to the emergency room for evaluation. In the ED, the patient had a temperature of 98.1 with a pulse of 84. Chest x-ray did not show any acute infiltration. The patient had an urinalysis, which showed evidence of infection. Hematology service consulted for the evaluation of leukopenia. Labs and imaging have been reviewed. PAST MEDICAL HISTORY: Significant for colon polyps, hemorrhoids, status post colon surgery. PAST SURGICAL HISTORY: She had colon surgery on 09/29/2018 for possible colon tumor. SOCIAL HISTORY: The patient originally from [facility]. Denied using any drugs, tobacco, or alcohol. She lives at home with family. FAMILY HISTORY: Noncontributory. ALLERGIES: No known drug allergy. MEDICATIONS: Current meds have been reviewed. LABORATORY DATA: Showed white count of 5.1, hemoglobin of 11.3, and platelet count of 270,000. BUN of 12 and creatinine of 0.6. AST of 11 and ALT of 13. Urinalysis showed +3 leukocyte esterase, wbcs 5 to 10, and few bacteria. IMAGING: Chest x-ray showed no acute disease. REVIEW OF SYSTEMS: A 14-point of systems reviewed were all negative unless mentioned in HPI. PHYSICAL EXAMINATION: VITAL SIGNS: Have been reviewed. GENERAL: Middle-aged female, lying in bed, awake, alert, responsive, not in acute distress. Complained of abdominal pain. HEENT: Normocephalic and atraumatic. Pupils are reactive to light equally. Moist oral mucosa. No exudate or thrush. NECK: Supple. No lymphadenopathy. Trachea is midline. CARDIOVASCULAR: Regular rate and rhythm. No murmur or gallop. LUNGS: Clear bilaterally. No wheezing or rhonchi. Diminished breathing sounds at the bases. ABDOMEN: Soft. Distended. Tender in the periumbilical area. Absent bowel sounds. Old surgical scar wound in the umbilical area clean and dry without any drainage or dehiscence. No ascites. EXTREMITIES: No edema or cyanosis. ASSESSMENT AND RECOMMENDATIONS # Stage I Colon cancer. s/p surgery Status post partial colon resection in the area of the splenic flexure. Severe pancolitis and pneumatosis involving a dilated preanastomotic segment of the colon (Right hemicolon to splenic flexure) . Some degree of partial obstruction at the level of the anastomosis is not excluded. Postanastomotic descending and sigmoid colon is nondilated but shows wall thickening and moderate inflammation as well. --> no hx of mets --> cea has been ordered --> outpatient screening/surveillance with colo prn # Leukopenia - multiple etiologies possible including most common which are medication-induced, infection versus viral syndrome --> Continue to monitor and trend wbc for improvement --> Hep panel and HIV have been ordered --> US abd ordered to r/o cirrhosis and hepatosplenomegaly # Urinary tract infection. ID is following, appreciate recs. --> On abx, empiric tx. --> urine culture results pending # Abdominal pain. Surgery and GI are following, appreciate recs. --> Rule out obstruction. --> Continue supportive care with --> IV fluid hydration, pain management, and NPO for now. # Nausea and vomiting, suspect due to the above. --> Continue supportive care with antinausea medicine and hydration as needed. GREATLY APPRECIATE CONSULTATION. Jose Barreto MD Oct 20, 2018 11:52
--- NOTE | 2018-10-20 11:59 | Diagnostic Imaging Report ---
Indication: Abdominal pain. Status post partial colon resection for "mass" 09/29/2018. Patient presenting with abdominal pain, nausea and vomiting for the last 5 days. Technique: Continuous helical transaxial imaging of the abdomen and pelvis was obtained from the lung bases to the pubic symphysis during intravenous contrast administration. Coronal 2-D reformats were also obtained. Study obtained in a Siemens sensation [address] Automatic Exposure Control was utilized. Total Dose length Product (DLP): 798.[address] Dose Index Volume (CTDIvol): 14.56 mGy Comparison: None Findings: There is severe dilatation of the proximal colon to the area of colonic anastomosis (axial image 52 ). In addition, the dilated proximal segment which includes the cecum, ascending colon through the transverse colon exhibits abnormal wall thickening with pneumatosis. The post anastomotic colon which includes the descending colon and sigmoid also appears abnormal with wall thickening. There is a moderate degree of inflammation surrounding both the pre and post and anastomotic: Likely indicative of a colitis. The most severe area of inflammation is in the left side near the anastomosis. There is no free air to suggest perforation at this time. There is a small amount of free fluid within the pelvis. Small bowel appears nondilated. The liver and spleen, pancreas appear unremarkable. There are hypodensities within the kidneys nonspecific. There is ill-defined hypodensity in the central left kidney measuring about 1.2 cm nonspecific. Gallbladder is distended. There is an anterior abdominal wall scar noted consistent with recent surgery. Uterus is present unremarkable. The bladder is nondistended. IMPRESSION: Status post partial colon resection in the area of the splenic flexure. Severe pancolitis and pneumatosis involving a dilated preanastomotic segment of the colon (Right hemicolon to splenic flexure). Some degree of partial obstruction at the level of the anastomosis is not excluded. Postanastomotic descending and sigmoid colon is nondilated but shows wall thickening and moderate inflammation as well. No abscess or evidence of perforation. Mild to moderate free fluid. Other incidental findings as above The CT scanner at [facility] is accredited by the [employer] and the scans are performed using dose optimization techniques as appropriate to a performed exam including Automatic Exposure control.
[2018-10-20 12:00] VITALS: BP 120/67
--- NOTE | 2018-10-20 13:13 | GI Progress Note ---
Assessment/Plan Problems: (1) H/O abdominal surgery ICD Codes: Z98.890 - Other specified postprocedural states SNOMED: 563750308, 526256692 (2) Weight loss ICD Codes: R63.4 - Abnormal weight loss SNOMED: 16453338, 138485868 (3) Dehydration ICD Codes: E86.0 - Dehydration SNOMED: 71610838 (4) Abdominal pain ICD Codes: R10.9 - Unspecified abdominal pain SNOMED: 08307893 Qualifiers: Qualified Codes: R10.84 - Generalized abdominal pain (5) Nausea & vomiting ICD Codes: R11.2 - Nausea with vomiting, unspecified SNOMED: 43339211 Qualifiers: Qualified Codes: R11.2 - Nausea with vomiting, unspecified Status: unchanged Status Narrative Discussed with Dr. Benton. Assessment/Plan CT AP reviewed >> - Status post partial colon resection in the area of the splenic flexure. - Severe pancolitis and pneumatosis involving a dilated preanastomotic segment of the colon(Right hemicolon to splenic flexure). - Some degree of partial obstruction at the level of the anastomosis is not excluded. - Postanastomotic descending and sigmoid colon is nondilated but shows wall thickening and moderate inflammation as well. - No abscess or evidence of perforation. - Mild to moderate free fluid. history of recent abdominal surgery N/V has resolved at this time fu surgical recs pain mgmt zofran prn IV hydration NPO fu labs The patient was seen and examined at bedside and all new and available data was reviewed in the patients chart. I agree with the above findings, impression and plan. (Patient seen earlier today. Signature stamp does not reflect patient encounter time.). - Pritesh Benton MD Subjective Gastrointestinal/Abdominal: Reports: abdominal pain Objective Last 24 Hour Vital Signs Date Time Temp Pulse Resp B/P (MAP) Pulse Ox O2 Delivery O2 Flow Rate FiO2 10/20/18 09:00 Room Air 10/20/18 08:00 98.2 65 18 104/20 (48) 98 10/20/18 04:00 97.8 103 19 126/75 (92) 96 10/20/18 00:00 98.5 101 18 109/70 (83) 94 10/19/18 21:00 Room Air 10/19/18 20:00 98.4 100 20 131/72 (91) 96 10/19/18 16:00 98.2 89 17 122/67 (85) 95 10/19/18 15:32 98.2 Intake and Output 10/19/18 10/20/18 19:00 07:00 Intake Total 1137.5 ml 1420 ml Balance 1137.5 ml 1420 ml Intake Oral 240 ml 120 ml IV Total 897.5 ml 1300 ml # Voids 3 5 Laboratory Tests Test 10/20/18 08:07 White Blood Count 4.4 K/UL (4.8-10.8) L Red Blood Count 4.77 M/UL (4.20-5.40) Hemoglobin 12.7 G/DL (12.0-16.0) Hematocrit 37.3 % (37.0-47.0) Mean Corpuscular Volume 78 FL (80-99) L Mean Corpuscular Hemoglobin 26.5 PG (27.0-31.0) L Mean Corpuscular Hemoglobin Concent 33.9 G/DL (32.0-36.0) Red Cell Distribution Width 11.7 % (11.6-14.8) Platelet Count 279 K/UL (150-450) Mean Platelet Volume 6.3 FL (6.5-10.1) L Neutrophils (%) (Auto) 58.9 % (45.0-75.0) Lymphocytes (%) (Auto) 26.0 % (20.0-45.0) Monocytes (%) (Auto) 11.7 % (1.0-10.0) H Eosinophils (%) (Auto) 2.5 % (0.0-3.0) Basophils (%) (Auto) 1.0 % (0.0-2.0) Sodium Level 142 MMOL/L (136-145) Potassium Level 2.9 MMOL/L (3.5-5.1) L Chloride Level 106 MMOL/L (98-107) Carbon Dioxide Level 26 MMOL/L (21-32) Anion Gap 10 mmol/L (5-15) Blood Urea Nitrogen 6 mg/dL (7-18) L Creatinine 0.5 MG/DL (0.55-1.30) L Estimat Glomerular Filtration Rate > 60 mL/min (>60) Glucose Level 111 MG/DL (74-106) H Calcium Level 8.3 MG/DL (8.5-10.1) L Phosphorus Level 2.4 MG/DL (2.5-4.9) L Magnesium Level 1.5 MG/DL (1.8-2.4) L Carcinoembryonic Antigen Pending Microbiology Date/Time Source Procedure Growth Status 10/19/18 18:00 Indwelling Cath Urine Culture - Preliminary NO GROWTH Resulted Height (Feet): 5 Height (Inches): 3.00 Weight (Pounds): 130 General Appearance: WD/WN, no apparent distress, alert Cardiovascular: normal rate Respiratory/Chest: normal breath sounds, no respiratory distress Abdominal Exam: normal bowel sounds, non tender, soft Extremities: normal range of motion, non-tender Keyonna Giang NP Oct 20, 2018 13:13
--- NOTE | 2018-10-20 14:58 | Infectious Diseases Prog Note ---
Assessment/Plan Problems: (1) Pneumatosis intestinalis of large intestine Assessment & Plan: at the anastomosis site, suspect ischemia related to recent surgery , will broaden her coverage to zosyn , continue conservative management , with bowel rest and hydration . (2) UTI (urinary tract infection) Assessment & Plan: already on zosyn pending culture (3) Nausea & vomiting Assessment & Plan: due to the above, continue supportive care (4) Abdominal pain Assessment & Plan: due to the above, continue pain management as needed (5) Dehydration Assessment & Plan: continue IVF for hydration with close monitor of electrolytes Subjective Constitutional: Reports: no symptoms HEENT: Reports: no symptoms Respiratory: Reports: no symptoms Breasts: Reports: no symptoms Cardiovascular: Reports: no symptoms Gastrointestinal/Abdominal: Reports: nausea, diarrhea, bloating Genitourinary: Reports: no symptoms Neurologic: Reports: no symptoms Psychiatric: Reports: no symptoms Skin: Reports: no symptoms Endocrine: Reports: no symptoms Hematologic: Reports: no symptoms Musculoskeletal: Reports: no symptoms Allergies: Coded Allergies: No Known Allergies (Unverified , 10/18/18) Objective Vital Signs Last 24 Hour Vital Signs Date Time Temp Pulse Resp B/P (MAP) Pulse Ox O2 Delivery O2 Flow Rate FiO2 10/20/18 09:00 Room Air 10/20/18 08:00 98.2 65 18 104/20 (48) 98 10/20/18 04:00 97.8 103 19 126/75 (92) 96 10/20/18 00:00 98.5 101 18 109/70 (83) 94 10/19/18 21:00 Room Air 10/19/18 20:00 98.4 100 20 131/72 (91) 96 10/19/18 16:00 98.2 89 17 122/67 (85) 95 10/19/18 15:32 98.2 Height (Feet): 5 Height (Inches): 3.00 Weight (Pounds): 130 General Appearance: WD/WN, no acute distress HEENT: normocephalic, atraumatic, anicteric, mucous membranes moist, PERRL, EOMI, pharynx normal, supple, no JVD Respiratory/Chest: chest wall non-tender, lungs clear, normal breath sounds, no respiratory distress, no accessory muscle use Cardiovascular: normal peripheral pulses, normal rate, regular rhythm, no gallop/murmur, no JVD Abdomen: no organomegaly, no mass, no scars, hypoactive bowel sounds, distended , tender Genitourinary: normal external genitalia Extremities: no cyanosis, no clubbing Skin: no rash, no lesions, no ulcers Neurologic/Psychiatric: alert, oriented x 3, responsive Lymphatic: no neck adenopathy, no groin adenopathy Musculoskeletal: normal muscle bulk, no effusion Microbiology Date/Time Source Procedure Growth Status 10/18/18 18:00 Nasal Nares MRSA Culture - Final NO METHICILLIN RESISTANT STAPH AUREUS... Complete 10/19/18 18:00 Indwelling Cath Urine Culture - Preliminary NO GROWTH Resulted 10/18/18 18:00 Rectum VRE Culture - Final Enterococcus Faecium - Vre Complete 10/18/18 18:00 Rectum - Final NO CARBAPENEM-RESISTANT ENTEROBACTERI... Complete Laboratory Tests Test 10/20/18 08:07 White Blood Count 4.4 K/UL (4.8-10.8) L Red Blood Count 4.77 M/UL (4.20-5.40) Hemoglobin 12.7 G/DL (12.0-16.0) Hematocrit 37.3 % (37.0-47.0) Mean Corpuscular Volume 78 FL (80-99) L Mean Corpuscular Hemoglobin 26.5 PG (27.0-31.0) L Mean Corpuscular Hemoglobin Concent 33.9 G/DL (32.0-36.0) Red Cell Distribution Width 11.7 % (11.6-14.8) Platelet Count 279 K/UL (150-450) Mean Platelet Volume 6.3 FL (6.5-10.1) L Neutrophils (%) (Auto) 58.9 % (45.0-75.0) Lymphocytes (%) (Auto) 26.0 % (20.0-45.0) Monocytes (%) (Auto) 11.7 % (1.0-10.0) H Eosinophils (%) (Auto) 2.5 % (0.0-3.0) Basophils (%) (Auto) 1.0 % (0.0-2.0) Sodium Level 142 MMOL/L (136-145) Potassium Level 2.9 MMOL/L (3.5-5.1) L Chloride Level 106 MMOL/L (98-107) Carbon Dioxide Level 26 MMOL/L (21-32) Anion Gap 10 mmol/L (5-15) Blood Urea Nitrogen 6 mg/dL (7-18) L Creatinine 0.5 MG/DL (0.55-1.30) L Estimat Glomerular Filtration Rate > 60 mL/min (>60) Glucose Level 111 MG/DL (74-106) H Calcium Level 8.3 MG/DL (8.5-10.1) L Phosphorus Level 2.4 MG/DL (2.5-4.9) L Magnesium Level 1.5 MG/DL (1.8-2.4) L Carcinoembryonic Antigen Pending Current Medications Medications (Trade) Dose Ordered Sig/Leatha Route PRN Reason Start Time Stop Time Status Last Admin Dose Admin Barium Sulfate (Readi-Cat 2) 450 ml NOW PRN ORAL Radiology Procedure 10/19/18 12:30 10/21/18 12:22 Dextrose (Dextrose 50%) 25 ml Q30M PRN IV Hypoglycemia 10/18/18 22:30 11/17/18 22:29 Dextrose (Dextrose 50%) 50 ml Q30M PRN IV Hypoglycemia 10/18/18 22:30 11/17/18 22:29 Insulin Aspart (NovoLOG) BEFORE MEALS AND HS SUBQ 10/19/18 06:30 11/18/18 06:29 10/19/18 06:24 Iopamidol (Isovue-300 100ml) 100 ml NOW PRN INJ Radiology Procedure 10/19/18 12:30 10/21/18 12:29 Magnesium Sulfate 100 ml @ 100 mls/hr Q1H IVPB 10/20/18 14:00 10/20/18 15:59 Morphine Sulfate (Morphine Sulfate) 0.5 mg Q4H PRN IVP Severe Pain (Pain Scale 7-10) 10/18/18 20:30 10/25/18 20:29 10/19/18 15:02 Ondansetron HCl (Zofran) 4 mg Q4H PRN IVP Nausea & Vomiting 10/18/18 20:30 11/17/18 20:29 10/20/18 10:17 Piperacillin Sod/ Tazobactam Sod 3.375 gm/Dextrose 110 ml @ 27.5 mls/hr EVERY 8 HOURS IVPB 10/20/18 15:00 10/25/18 14:59 Sodium 1,000 ml @ 100 mls/hr Q10H IV 10/20/18 13:00 11/19/18 12:59 Tahir Cervantes M.D. Oct 20, 2018 14:58
[2018-10-20] MEDS: 1/2NS w/KCl 20mEq 1000ml 1,000 ML IV SCH ×2 (15:21→23:05)
[2018-10-20 16:00] VITALS: BP 135/70
[2018-10-20] MEDS: Piperacillin/Tazobactam 3.375 GM in D5W 110 ML IVPB SCH ×2 (17:39→21:51)
--- NOTE | 2018-10-20 18:00 | Progress Note ---
DATE: 10/20/2018 SUBJECTIVE: The patient is a 68-year-old male currently in the bed. He is still symptomatic, having abdominal pain, nausea and vomiting resolved. OBJECTIVE: VITAL SIGNS: Stable. CHEST: Bilaterally clear. CARDIOVASCULAR: ABDOMEN: Soft, but tenderness on palpation. Decreased bowel sounds. EXTREMITIES: No edema. ASSESSMENT: 1. Small bowel obstruction. 2. Abdominal pain. 3. Status post laparotomy. 4. 00:36 . PLAN: The patient is NPO for CT scan of the abdomen and pelvis. GI is on case. Surgery on case. Continue antibiotic. Continue IV fluid. Continue Zofran. Mark Meehan M.D. DR: Diana JOB#: [id number] CC:
[2018-10-20 20:00] VITALS: BP 102/62
--- NOTE | 2018-10-20 21:43 | General Surgery Progress Note ---
General Surgery-Progress Note Subjective Additional Comments low grade fevers. leukocytosis resolved. low k. exam unchanged. CT noted Objective Last 24 Hour Vital Signs Date Time Temp Pulse Resp B/P (MAP) Pulse Ox O2 Delivery O2 Flow Rate FiO2 10/20/18 20:00 99.5 101 20 102/62 (75) 97 10/20/18 16:00 99.6 93 20 135/70 (91) 99 10/20/18 12:00 99.1 98 18 120/67 (84) 95 10/20/18 09:00 Room Air 10/20/18 08:00 98.2 65 18 104/20 (48) 98 10/20/18 04:00 97.8 103 19 126/75 (92) 96 10/20/18 00:00 98.5 101 18 109/70 (83) 94 I&O Intake and Output 10/19/18 10/20/18 19:00 07:00 Intake Total 1137.5 ml 1420 ml Balance 1137.5 ml 1420 ml Intake Oral 240 ml 120 ml IV Total 897.5 ml 1300 ml # Voids 3 5 Dressing: dry Wound: clean, intact Drains: none Cardiovascular: RSR Respiratory: clear Abdomen: soft, distended, tenderness, other - decreased bowel sounds Extremities: no cyanosis Laboratory Tests Test 10/20/18 08:07 White Blood Count 4.4 K/UL (4.8-10.8) L Red Blood Count 4.77 M/UL (4.20-5.40) Hemoglobin 12.7 G/DL (12.0-16.0) Hematocrit 37.3 % (37.0-47.0) Mean Corpuscular Volume 78 FL (80-99) L Mean Corpuscular Hemoglobin 26.5 PG (27.0-31.0) L Mean Corpuscular Hemoglobin Concent 33.9 G/DL (32.0-36.0) Red Cell Distribution Width 11.7 % (11.6-14.8) Platelet Count 279 K/UL (150-450) Mean Platelet Volume 6.3 FL (6.5-10.1) L Neutrophils (%) (Auto) 58.9 % (45.0-75.0) Lymphocytes (%) (Auto) 26.0 % (20.0-45.0) Monocytes (%) (Auto) 11.7 % (1.0-10.0) H Eosinophils (%) (Auto) 2.5 % (0.0-3.0) Basophils (%) (Auto) 1.0 % (0.0-2.0) Sodium Level 142 MMOL/L (136-145) Potassium Level 2.9 MMOL/L (3.5-5.1) L Chloride Level 106 MMOL/L (98-107) Carbon Dioxide Level 26 MMOL/L (21-32) Anion Gap 10 mmol/L (5-15) Blood Urea Nitrogen 6 mg/dL (7-18) L Creatinine 0.5 MG/DL (0.55-1.30) L Estimat Glomerular Filtration Rate > 60 mL/min (>60) Glucose Level 111 MG/DL (74-106) H Calcium Level 8.3 MG/DL (8.5-10.1) L Phosphorus Level 2.4 MG/DL (2.5-4.9) L Magnesium Level 1.5 MG/DL (1.8-2.4) L Carcinoembryonic Antigen Pending Plan Problems: (1) Abdominal pain Assessment & Plan: abdominal pain n/v resolved labs noted. abd soft, distention, tender/guarding but no peritonitis. surgical wounds c/d/i CT noted. very concerning. CT findings do not correlate with clinical exam as she has been afebrile without peritonitis. now low grade fevers. discussed findings with her primary Surgeon from [facility] Likely infectious colitis as clinically does not seem ischemic. When discussing with primary surgeon he states he would be okay to have her transferred to [facility] for continued care post op. I anticipate with severity of colitis, bowel edema, pneumatosis this will take some time to recover prior to resuming diet. NPO IV fluids IV abx c diff agree with transfer for continuity of care with her primary surgeon if possible -will follow with recs. thank you José Miguel Flores Oct 20, 2018 21:43
--- NOTE | 2018-10-20 23:54 | General Progress Note ---
Assessment/Plan Status: stable Assessment/Plan anxiety d/o ativan prn the pt was provided with st/ro Subjective Neurologic/Psychiatric: Reports: anxiety Allergies: Coded Allergies: No Known Allergies (Unverified , 10/18/18) Objective Last 24 Hour Vital Signs Date Time Temp Pulse Resp B/P (MAP) Pulse Ox O2 Delivery O2 Flow Rate FiO2 10/20/18 21:00 Room Air 10/20/18 20:00 99.5 101 20 102/62 (75) 97 10/20/18 16:00 99.6 93 20 135/70 (91) 99 10/20/18 12:00 99.1 98 18 120/67 (84) 95 10/20/18 09:00 Room Air 10/20/18 08:00 98.2 65 18 104/20 (48) 98 10/20/18 04:00 97.8 103 19 126/75 (92) 96 10/20/18 00:00 98.5 101 18 109/70 (83) 94 Intake and Output 10/19/18 10/20/18 18:59 06:59 Intake Total 1165.0 ml 1520 ml Balance 1165.0 ml 1520 ml Intake Oral 240 ml 120 ml IV Total 925.0 ml 1400 ml # Voids 3 5 Laboratory Tests 10/20/18 08:07: White Blood Count 4.4L, Red Blood Count 4.77, Hemoglobin 12.7, Hematocrit 37.3, Mean Corpuscular Volume 78L, Mean Corpuscular Hemoglobin 26.5L, Mean Corpuscular Hemoglobin Concent 33.9, Red Cell Distribution Width 11.7, Platelet Count 279, Mean Platelet Volume 6.3L, Neutrophils (%) (Auto) 58.9, Lymphocytes ( %) (Auto) 26.0, Monocytes (%) (Auto) 11.7H, Eosinophils (%) (Auto) 2.5, Basophils (%) (Auto) 1.0, Sodium Level 142, Potassium Level 2.9L, Chloride Level 106, Carbon Dioxide Level 26, Anion Gap 10, Blood Urea Nitrogen 6L, Creatinine 0.5L, Estimat Glomerular Filtration Rate > 60, Glucose Level 111H, Calcium Level 8.3L, Phosphorus Level 2.4L, Magnesium Level 1.5L, Carcinoembryonic Antigen [Pending] Height (Feet): 5 Height (Inches): 3.00 Weight (Pounds): 130 General Appearance: no apparent distress, alert Neurologic: oriented x 3, responsive, normal mood/affect Anna Camacho MD Oct 20, 2018 23:54
[2018-10-21] VITALS: BP 107/65
[2018-10-21 04:00] VITALS: BP 104/59
[2018-10-21] MEDS: Piperacillin/Tazobactam 3.375 GM in D5W 110 ML IVPB SCH ×3 (05:40→21:26)
[2018-10-21] MEDS: NovoLOG Insulin Flexpen SUBQ SCH ×4 (06:11→21:00)
--- NOTE | 2018-10-21 07:32 | General Progress Note ---
Assessment/Plan Assessment/Plan ASSESSMENT AND RECOMMENDATIONS # Stage I Colon cancer. s/p surgery Status post partial colon resection in the area of the splenic flexure. Severe pancolitis and pneumatosis involving a dilated preanastomotic segment of the colon (Right hemicolon to splenic flexure) . Some degree of partial obstruction at the level of the anastomosis is not excluded. Postanastomotic descending and sigmoid colon is nondilated but shows wall thickening and moderate inflammation as well. --> no hx of mets --> cea has been ordered --> outpatient screening/surveillance with colo prn # Leukopenia - multiple etiologies possible including most common which are medication-induced, infection versus viral syndrome --> Continue to monitor and trend wbc for improvement --> Hep panel and HIV have been ordered --> CT shows: Status post partial colon resection in the area of the splenic flexure. Severe pancolitis and pneumatosis involving a dilated preanastomotic segment of the colon (Right hemicolon to splenic flexure). Some degree of partial obstruction at the level of the anastomosis is not excluded. Postanastomotic descending and sigmoid colon is nondilated but shows wall thickening and moderate inflammation as wel # Urinary tract infection. ID is following, appreciate recs. --> On abx, empiric tx. --> urine culture results pending # Abdominal pain. Surgery and GI are following, appreciate recs. --> Rule out obstruction. --> Continue supportive care with surgery --> consider transfer as per surgery --> IV fluid hydration, pain management, and NPO for now. # Nausea and vomiting, suspect due to the above. --> Continue supportive care with antinausea medicine and hydration as needed --> ronnie gi and surg recs GREATLY APPRECIATE CONSULTATION. Subjective Constitutional: Denies: no symptoms, chills, diaphoresis, fever, malaise, weakness, other Cardiovascular: Denies: no symptoms, chest pain, edema, irregular heart rate, lightheadedness, palpitations, syncope, other Respiratory: Denies: no symptoms, cough, orthopnea, shortness of breath, SOB with excertion, SOB at rest, sputum, stridor, wheezing, other Gastrointestinal/Abdominal: Denies: no symptoms, abdomen distended, abdominal pain, black stools, tarry stools, blood in stool, constipated, diarrhea, difficulty swallowing, nausea, poor appetite, poor fluid intake, rectal bleeding , vomiting, other Genitourinary: Denies: no symptoms, burning, discharge, frequency, flank pain, hematuria, incontinence, pain, urgency, other Neurologic/Psychiatric: Denies: no symptoms, anxiety, depressed, emotional problems, headache, numbness, paresthesia, pre-existing deficit, seizure, tingling, tremors, weakness, other Endocrine: Denies: no symptoms, excessive sweating, flushing, intolerance to cold, intolerance to heat, increased hunger, increased thirst, increased urine, unexplained weight gain, unexplained weight loss, other Hematologic/Lymphatic: Denies: no symptoms, anemia, easy bleeding, easy bruising, other Allergies: Coded Allergies: No Known Allergies (Unverified , 10/18/18) Subjective feeling better, having some has, no bm Objective Last 24 Hour Vital Signs Date Time Temp Pulse Resp B/P (MAP) Pulse Ox O2 Delivery O2 Flow Rate FiO2 10/21/18 04:00 98.8 105 17 104/59 (74) 97 10/21/18 00:00 99.1 103 18 107/65 (79) 98 10/20/18 21:00 Room Air 10/20/18 20:00 99.5 101 20 102/62 (75) 97 10/20/18 16:00 99.6 93 20 135/70 (91) 99 10/20/18 12:00 99.1 98 18 120/67 (84) 95 10/20/18 09:00 Room Air 10/20/18 08:00 98.2 65 18 104/20 (48) 98 Intake and Output 10/20/18 10/21/18 19:00 07:00 Intake Total 937.5 ml Balance 937.5 ml IV Total 937.5 ml # Voids 3 5 # Bowel Movements 1 Laboratory Tests 10/20/18 08:07: White Blood Count 4.4L, Red Blood Count 4.77, Hemoglobin 12.7, Hematocrit 37.3, Mean Corpuscular Volume 78L, Mean Corpuscular Hemoglobin 26.5L, Mean Corpuscular Hemoglobin Concent 33.9, Red Cell Distribution Width 11.7, Platelet Count 279, Mean Platelet Volume 6.3L, Neutrophils (%) (Auto) 58.9, Lymphocytes ( %) (Auto) 26.0, Monocytes (%) (Auto) 11.7H, Eosinophils (%) (Auto) 2.5, Basophils (%) (Auto) 1.0, Sodium Level 142, Potassium Level 2.9L, Chloride Level 106, Carbon Dioxide Level 26, Anion Gap 10, Blood Urea Nitrogen 6L, Creatinine 0.5L, Estimat Glomerular Filtration Rate > 60, Glucose Level 111H, Calcium Level 8.3L, Phosphorus Level 2.4L, Magnesium Level 1.5L, Carcinoembryonic Antigen [Pending] 10/21/18 05:10: White Blood Count [Pending], Red Blood Count [Pending], Hemoglobin [Pending], Hematocrit [Pending], Mean Corpuscular Volume [Pending], Mean Corpuscular Hemoglobin [Pending], Mean Corpuscular Hemoglobin Concent [Pending], Red Cell Distribution Width [Pending], Platelet Count [Pending], Mean Platelet Volume [ Pending], Neutrophils (%) (Auto) [Pending], Lymphocytes (%) (Auto) [Pending], Monocytes (%) (Auto) [Pending], Eosinophils (%) (Auto) [Pending], Basophils (%) (Auto) [Pending], Sodium Level [Pending], Potassium Level [Pending], Chloride Level [Pending], Carbon Dioxide Level [Pending], Blood Urea Nitrogen [Pending], Creatinine [Pending], Estimat Glomerular Filtration Rate [Pending], Glucose Level [Pending], Calcium Level [Pending], Phosphorus Level [Pending], Magnesium Level [Pending], Erythrocyte Sedimentation Rate [Pending], Prothrombin Time [ Pending], Prothromb Time International Ratio [Pending], Activated Partial Thromboplast Time [Pending], Total Bilirubin [Pending], Aspartate Amino Transf ( AST/SGOT) [Pending], Alanine Aminotransferase (ALT/SGPT) [Pending], Alkaline Phosphatase [Pending], C-Reactive Protein, Quantitative [Pending], Total Protein [Pending], Albumin [Pending], Globulin [Pending], Amylase Level [Pending ], Lipase [Pending] Height (Feet): 5 Height (Inches): 3.00 Weight (Pounds): 163 General Appearance: no apparent distress Cardiovascular: regular rhythm Respiratory/Chest: normal breath sounds Abdomen: no mass Extremities: non-tender Edema: mild edema Neurologic: oriented x 3 Skin: warm/dry Jose Barreto MD Oct 21, 2018 07:32
[2018-10-21 07:38] LABS: INR 1.1 (0.9-1.1)
[2018-10-21 07:39] LABS: BASOPHILS % (AUTO) 0.6 % (0.0-2.0); EOSINOPHILS % (AUTO) 3.8 % (0.0-3.0); HEMATOCRIT 34.2 % (37.0-47.0); HEMOGLOBIN 11.6 G/DL (12.0-16.0); LYMPHOCYTES % (AUTO) 29.4 % (20.0-45.0); MEAN CORPUSCULAR VOLUME 78 FL (80-99); NEUTROPHILS % (AUTO) 55.2 % (45.0-75.0); PLATELET COUNT 258 K/UL (150-450); RED BLOOD COUNT 4.38 M/UL (4.20-5.40); RED CELL DISTRIBUTION WIDTH 11.6 % (11.6-14.8); WHITE BLOOD COUNT 3.9 K/UL (4.8-10.8)
[2018-10-21 07:55] LABS: ALANINE AMINOTRANSFERASE 13 U/L (12-78); ALBUMIN 2.5 G/DL (3.4-5.0); ALBUMIN/GLOBULIN RATIO 0.7 (1.0-2.7); ALKALINE PHOSPHATASE 69 U/L (46-116); ANION GAP 10 mmol/L (5-15); ASPARTATE AMINO TRANSFERASE 9 U/L (15-37); BILIRUBIN,TOTAL 1.3 MG/DL (0.2-1.0); BLOOD UREA NITROGEN 5 mg/dL (7-18); CALCIUM 8.2 MG/DL (8.5-10.1); CARBON DIOXIDE 25 MMOL/L (21-32); CHLORIDE 107 MMOL/L (98-107); CREATININE 0.5 MG/DL (0.55-1.30); PHOSPHORUS 2.3 MG/DL (2.5-4.9); POTASSIUM 3.5 MMOL/L (3.5-5.1); SODIUM 142 MMOL/L (136-145)
[2018-10-21 07:57] LABS: BILIRUBIN,DIRECT 0.2 MG/DL (0.0-0.3)
[2018-10-21 08:00] VITALS: BP 108/62
[2018-10-21] MEDS: 1/2NS w/KCl 20mEq 1000ml 1,000 ML IV SCH ×2 (09:06→18:00)
[2018-10-21 12:00] VITALS: BP 129/63
--- NOTE | 2018-10-21 12:55 | GI Progress Note ---
Assessment/Plan Problems: (1) H/O abdominal surgery ICD Codes: Z98.890 - Other specified postprocedural states SNOMED: 399602579, 091460665 (2) Weight loss ICD Codes: R63.4 - Abnormal weight loss SNOMED: 53325105, 795599170 (3) Dehydration ICD Codes: E86.0 - Dehydration SNOMED: 63483307 (4) Abdominal pain ICD Codes: R10.9 - Unspecified abdominal pain SNOMED: 75149928 Qualifiers: Qualified Codes: R10.84 - Generalized abdominal pain (5) Nausea & vomiting ICD Codes: R11.2 - Nausea with vomiting, unspecified SNOMED: 61499225 Qualifiers: Qualified Codes: R11.2 - Nausea with vomiting, unspecified Status: unchanged Status Narrative Discussed with Dr. Benton. Assessment/Plan CT AP reviewed >> - Status post partial colon resection in the area of the splenic flexure. - Severe pancolitis and pneumatosis involving a dilated preanastomotic segment of the colon(Right hemicolon to splenic flexure). - Some degree of partial obstruction at the level of the anastomosis is not excluded. - Postanastomotic descending and sigmoid colon is nondilated but shows wall thickening and moderate inflammation as well. - No abscess or evidence of perforation. - Mild to moderate free fluid. history of recent abdominal surgery N/V has resolved at this time fu surgical recs >> plan to transfer back to primary surgeon pain mgmt zofran prn IV hydration NPO fu labs The patient was seen and examined at bedside and all new and available data was reviewed in the patients chart. I agree with the above findings, impression and plan. (Patient seen earlier today. Signature stamp does not reflect patient encounter time.). - Pritesh Bentno MD Subjective Gastrointestinal/Abdominal: Reports: abdominal pain Objective Last 24 Hour Vital Signs Date Time Temp Pulse Resp B/P (MAP) Pulse Ox O2 Delivery O2 Flow Rate FiO2 10/21/18 09:00 Room Air 10/21/18 08:00 98.9 18 108/62 (77) 98 10/21/18 04:00 98.8 105 17 104/59 (74) 97 10/21/18 00:00 99.1 103 18 107/65 (79) 98 10/20/18 21:00 Room Air 10/20/18 20:00 99.5 101 20 102/62 (75) 97 10/20/18 16:00 99.6 93 20 135/70 (91) 99 Intake and Output 10/20/18 10/21/18 19:00 07:00 Intake Total 937.5 ml Balance 937.5 ml IV Total 937.5 ml # Voids 3 5 # Bowel Movements 1 Laboratory Tests Test 10/21/18 05:10 White Blood Count 3.9 K/UL (4.8-10.8) L Red Blood Count 4.38 M/UL (4.20-5.40) Hemoglobin 11.6 G/DL (12.0-16.0) L Hematocrit 34.2 % (37.0-47.0) L Mean Corpuscular Volume 78 FL (80-99) L Mean Corpuscular Hemoglobin 26.5 PG (27.0-31.0) L Mean Corpuscular Hemoglobin Concent 34.0 G/DL (32.0-36.0) Red Cell Distribution Width 11.6 % (11.6-14.8) Platelet Count 258 K/UL (150-450) Mean Platelet Volume 6.1 FL (6.5-10.1) L Neutrophils (%) (Auto) 55.2 % (45.0-75.0) Lymphocytes (%) (Auto) 29.4 % (20.0-45.0) Monocytes (%) (Auto) 11.0 % (1.0-10.0) H Eosinophils (%) (Auto) 3.8 % (0.0-3.0) H Basophils (%) (Auto) 0.6 % (0.0-2.0) Erythrocyte Sedimentation Rate 23 MM/HR (0-30) Prothrombin Time 11.5 SEC (9.30-11.50) Prothromb Time International Ratio 1.1 (0.9-1.1) Activated Partial Thromboplast Time 27 SEC (23-33) Sodium Level 142 MMOL/L (136-145) Potassium Level 3.5 MMOL/L (3.5-5.1) Chloride Level 107 MMOL/L (98-107) Carbon Dioxide Level 25 MMOL/L (21-32) Anion Gap 10 mmol/L (5-15) Blood Urea Nitrogen 5 mg/dL (7-18) L Creatinine 0.5 MG/DL (0.55-1.30) L Estimat Glomerular Filtration Rate > 60 mL/min (>60) Glucose Level 89 MG/DL (74-106) Calcium Level 8.2 MG/DL (8.5-10.1) L Phosphorus Level 2.3 MG/DL (2.5-4.9) L Magnesium Level 1.8 MG/DL (1.8-2.4) Total Bilirubin 1.3 MG/DL (0.2-1.0) H Direct Bilirubin 0.2 MG/DL (0.0-0.3) Aspartate Amino Transf (AST/SGOT) 9 U/L (15-37) L Alanine Aminotransferase (ALT/SGPT) 13 U/L (12-78) Alkaline Phosphatase 69 U/L (46-116) C-Reactive Protein, Quantitative 7.6 mg/dL (0.00-0.90) H Total Protein 6.2 G/DL (6.4-8.2) L Albumin 2.5 G/DL (3.4-5.0) L Globulin 3.7 g/dL Albumin/Globulin Ratio 0.7 (1.0-2.7) L Amylase Level 13 U/L (25-115) L Lipase 61 U/L (73-393) L Height (Feet): 5 Height (Inches): 3.00 Weight (Pounds): 163 General Appearance: WD/WN, no apparent distress, alert Cardiovascular: normal rate Respiratory/Chest: normal breath sounds, no respiratory distress Abdominal Exam: normal bowel sounds, non tender, soft Extremities: non-tender Keyonna Giang NP Oct 21, 2018 12:55
--- NOTE | 2018-10-21 13:03 | Diagnostic Imaging Report ---
Indication: Abdominal pain Technique: Supine view of the abdomen Comparison: 10/18/2018, reference also made to CT scan 10/20/2028 2 Findings: Bowel gas pattern is unremarkable. Ingested contrast from recent CT scan is seen within the colon. No unusual masses or calcifications. Colonic abnormalities described on prior CT scan are not evident on this study. Previously reported pneumatosis is not clearly evident on plain radiograph Impression: Findings as noted. No definite acute process
--- NOTE | 2018-10-21 13:08 | Infectious Diseases Prog Note ---
Assessment/Plan Problems: (1) Pneumatosis intestinalis of large intestine Assessment & Plan: at the anastomosis site, suspect ischemia related to recent surgery , continue wide spectrum coverage with zosyn , continue conservative management, with bowel rest and hydration . (2) UTI (urinary tract infection) Assessment & Plan: already on zosyn pending culture (3) Nausea & vomiting Assessment & Plan: due to the above, continue supportive care (4) Abdominal pain Assessment & Plan: due to the above, continue pain management as needed (5) Dehydration Assessment & Plan: continue IVF for hydration with close monitor of electrolytes Subjective Constitutional: Reports: no symptoms HEENT: Reports: no symptoms Respiratory: Reports: no symptoms Breasts: Reports: no symptoms Cardiovascular: Reports: no symptoms Gastrointestinal/Abdominal: Reports: nausea, diarrhea, bloating Genitourinary: Reports: no symptoms Neurologic: Reports: no symptoms Psychiatric: Reports: no symptoms Skin: Reports: no symptoms Endocrine: Reports: no symptoms Hematologic: Reports: no symptoms Musculoskeletal: Reports: no symptoms Allergies: Coded Allergies: No Known Allergies (Unverified , 10/18/18) Objective Vital Signs Last 24 Hour Vital Signs Date Time Temp Pulse Resp B/P (MAP) Pulse Ox O2 Delivery O2 Flow Rate FiO2 10/21/18 09:00 Room Air 10/21/18 08:00 98.9 18 108/62 (77) 98 10/21/18 04:00 98.8 105 17 104/59 (74) 97 10/21/18 00:00 99.1 103 18 107/65 (79) 98 10/20/18 21:00 Room Air 10/20/18 20:00 99.5 101 20 102/62 (75) 97 10/20/18 16:00 99.6 93 20 135/70 (91) 99 Height (Feet): 5 Height (Inches): 3.00 Weight (Pounds): 163 General Appearance: WD/WN, no acute distress HEENT: normocephalic, atraumatic, anicteric, mucous membranes moist, PERRL Respiratory/Chest: chest wall non-tender, lungs clear, normal breath sounds, no respiratory distress, no accessory muscle use Cardiovascular: normal peripheral pulses, normal rate, regular rhythm, no gallop/murmur, no JVD Abdomen: normal bowel sounds, soft, non tender, no organomegaly, non distended , no mass, no scars Genitourinary: normal external genitalia Extremities: no cyanosis, no clubbing Skin: no rash, no lesions, no ulcers Neurologic/Psychiatric: alert, oriented x 3, responsive Lymphatic: no neck adenopathy, no groin adenopathy Musculoskeletal: normal muscle bulk, no effusion Microbiology Date/Time Source Procedure Growth Status 10/18/18 18:00 Nasal Nares MRSA Culture - Final NO METHICILLIN RESISTANT STAPH AUREUS... Complete 10/19/18 18:00 Indwelling Cath Urine Culture - Preliminary Resulted 10/18/18 18:00 Rectum VRE Culture - Final Enterococcus Faecium - Vre Complete 10/18/18 18:00 Rectum - Final NO CARBAPENEM-RESISTANT ENTEROBACTERI... Complete Laboratory Tests Test 10/21/18 05:10 White Blood Count 3.9 K/UL (4.8-10.8) L Red Blood Count 4.38 M/UL (4.20-5.40) Hemoglobin 11.6 G/DL (12.0-16.0) L Hematocrit 34.2 % (37.0-47.0) L Mean Corpuscular Volume 78 FL (80-99) L Mean Corpuscular Hemoglobin 26.5 PG (27.0-31.0) L Mean Corpuscular Hemoglobin Concent 34.0 G/DL (32.0-36.0) Red Cell Distribution Width 11.6 % (11.6-14.8) Platelet Count 258 K/UL (150-450) Mean Platelet Volume 6.1 FL (6.5-10.1) L Neutrophils (%) (Auto) 55.2 % (45.0-75.0) Lymphocytes (%) (Auto) 29.4 % (20.0-45.0) Monocytes (%) (Auto) 11.0 % (1.0-10.0) H Eosinophils (%) (Auto) 3.8 % (0.0-3.0) H Basophils (%) (Auto) 0.6 % (0.0-2.0) Erythrocyte Sedimentation Rate 23 MM/HR (0-30) Prothrombin Time 11.5 SEC (9.30-11.50) Prothromb Time International Ratio 1.1 (0.9-1.1) Activated Partial Thromboplast Time 27 SEC (23-33) Sodium Level 142 MMOL/L (136-145) Potassium Level 3.5 MMOL/L (3.5-5.1) Chloride Level 107 MMOL/L (98-107) Carbon Dioxide Level 25 MMOL/L (21-32) Anion Gap 10 mmol/L (5-15) Blood Urea Nitrogen 5 mg/dL (7-18) L Creatinine 0.5 MG/DL (0.55-1.30) L Estimat Glomerular Filtration Rate > 60 mL/min (>60) Glucose Level 89 MG/DL (74-106) Calcium Level 8.2 MG/DL (8.5-10.1) L Phosphorus Level 2.3 MG/DL (2.5-4.9) L Magnesium Level 1.8 MG/DL (1.8-2.4) Total Bilirubin 1.3 MG/DL (0.2-1.0) H Direct Bilirubin 0.2 MG/DL (0.0-0.3) Aspartate Amino Transf (AST/SGOT) 9 U/L (15-37) L Alanine Aminotransferase (ALT/SGPT) 13 U/L (12-78) Alkaline Phosphatase 69 U/L (46-116) C-Reactive Protein, Quantitative 7.6 mg/dL (0.00-0.90) H Total Protein 6.2 G/DL (6.4-8.2) L Albumin 2.5 G/DL (3.4-5.0) L Globulin 3.7 g/dL Albumin/Globulin Ratio 0.7 (1.0-2.7) L Amylase Level 13 U/L (25-115) L Lipase 61 U/L (73-393) L Current Medications Medications (Trade) Dose Ordered Sig/Leatha Route PRN Reason Start Time Stop Time Status Last Admin Dose Admin Dextrose (Dextrose 50%) 25 ml Q30M PRN IV Hypoglycemia 10/18/18 22:30 11/17/18 22:29 Dextrose (Dextrose 50%) 50 ml Q30M PRN IV Hypoglycemia 10/18/18 22:30 11/17/18 22:29 Insulin Aspart (NovoLOG) BEFORE MEALS AND HS SUBQ 10/19/18 06:30 11/18/18 06:29 10/19/18 06:24 Morphine Sulfate (Morphine Sulfate) 0.5 mg Q4H PRN IVP Severe Pain (Pain Scale 7-10) 12/9/18 20:30 10/25/18 20:29 10/19/18 15:02 Ondansetron HCl (Zofran) 4 mg Q4H PRN IVP Nausea & Vomiting 10/18/18 20:30 11/17/18 20:29 10/20/18 10:17 Piperacillin Sod/ Tazobactam Sod 3.375 gm/Dextrose 110 ml @ 27.5 mls/hr EVERY 8 HOURS IVPB 10/20/18 15:00 10/25/18 14:59 10/21/18 05:40 Sodium 1,000 ml @ 100 mls/hr Q10H IV 10/20/18 13:00 11/19/18 12:59 10/21/18 09:06 Tahir Cervantes M.D. Oct 21, 2018 13:08
[2018-10-21 16:00] VITALS: BP 124/61
--- NOTE | 2018-10-21 16:12 | General Surgery Progress Note ---
General Surgery-Progress Note Subjective Additional Comments low grade fevers. tachycardia. no n/v. abd peel oven tender Objective Last 24 Hour Vital Signs Date Time Temp Pulse Resp B/P (MAP) Pulse Ox O2 Delivery O2 Flow Rate FiO2 10/21/18 12:00 98.9 88 18 129/63 (85) 96 10/21/18 09:00 Room Air 10/21/18 08:00 98.9 18 108/62 (77) 98 10/21/18 04:00 98.8 105 17 104/59 (74) 97 10/21/18 00:00 99.1 103 18 107/65 (79) 98 10/20/18 21:00 Room Air 10/20/18 20:00 99.5 101 20 102/62 (75) 97 I&O Intake and Output 10/20/18 10/21/18 19:00 07:00 Intake Total 937.5 ml Balance 937.5 ml IV Total 937.5 ml # Voids 3 5 # Bowel Movements 1 Dressing: dry Wound: clean, dry, intact Drains: none Cardiovascular: RSR Respiratory: clear Abdomen: soft, distended, tenderness, absent bowel sounds Extremities: no tenderness, no cyanosis Laboratory Tests Test 10/21/18 05:10 White Blood Count 3.9 K/UL (4.8-10.8) L Red Blood Count 4.38 M/UL (4.20-5.40) Hemoglobin 11.6 G/DL (12.0-16.0) L Hematocrit 34.2 % (37.0-47.0) L Mean Corpuscular Volume 78 FL (80-99) L Mean Corpuscular Hemoglobin 26.5 PG (27.0-31.0) L Mean Corpuscular Hemoglobin Concent 34.0 G/DL (32.0-36.0) Red Cell Distribution Width 11.6 % (11.6-14.8) Platelet Count 258 K/UL (150-450) Mean Platelet Volume 6.1 FL (6.5-10.1) L Neutrophils (%) (Auto) 55.2 % (45.0-75.0) Lymphocytes (%) (Auto) 29.4 % (20.0-45.0) Monocytes (%) (Auto) 11.0 % (1.0-10.0) H Eosinophils (%) (Auto) 3.8 % (0.0-3.0) H Basophils (%) (Auto) 0.6 % (0.0-2.0) Erythrocyte Sedimentation Rate 23 MM/HR (0-30) Prothrombin Time 11.5 SEC (9.30-11.50) Prothromb Time International Ratio 1.1 (0.9-1.1) Activated Partial Thromboplast Time 27 SEC (23-33) Sodium Level 142 MMOL/L (136-145) Potassium Level 3.5 MMOL/L (3.5-5.1) Chloride Level 107 MMOL/L (98-107) Carbon Dioxide Level 25 MMOL/L (21-32) Anion Gap 10 mmol/L (5-15) Blood Urea Nitrogen 5 mg/dL (7-18) L Creatinine 0.5 MG/DL (0.55-1.30) L Estimat Glomerular Filtration Rate > 60 mL/min (>60) Glucose Level 89 MG/DL (74-106) Calcium Level 8.2 MG/DL (8.5-10.1) L Phosphorus Level 2.3 MG/DL (2.5-4.9) L Magnesium Level 1.8 MG/DL (1.8-2.4) Total Bilirubin 1.3 MG/DL (0.2-1.0) H Direct Bilirubin 0.2 MG/DL (0.0-0.3) Aspartate Amino Transf (AST/SGOT) 9 U/L (15-37) L Alanine Aminotransferase (ALT/SGPT) 13 U/L (12-78) Alkaline Phosphatase 69 U/L (46-116) C-Reactive Protein, Quantitative 7.6 mg/dL (0.00-0.90) H Total Protein 6.2 G/DL (6.4-8.2) L Albumin 2.5 G/DL (3.4-5.0) L Globulin 3.7 g/dL Albumin/Globulin Ratio 0.7 (1.0-2.7) L Amylase Level 13 U/L (25-115) L Lipase 61 U/L (73-393) L Plan Problems: (1) Abdominal pain Assessment & Plan: abdominal pain n/v resolved labs noted. abd soft, distention, tender/guarding but no peritonitis. surgical wounds c/d/i CT noted. very concerning. CT findings do not correlate with clinical exam as she has been afebrile without peritonitis. now low grade fevers. discussed findings with her primary Surgeon from [facility] Likely infectious colitis as clinically does not seem ischemic. When discussing with primary surgeon he states he would be okay to have her transferred to [facility] for continued care post op. I anticipate with severity of colitis, bowel edema, pneumatosis this will take some time to recover prior to resuming diet. KUB noted labs noted NPO IV fluids IV abx c diff agree with transfer for continuity of care with her primary surgeon if possible -will follow with recs. thank you José Miguel Flores Oct 21, 2018 16:12
[2018-10-21] MEDS ORDERED: 1/2 NS 1000ml IV ONE (16:58)
[2018-10-21 20:00] VITALS: BP 110/63
--- NOTE | 2018-10-21 21:30 | Progress Note ---
SUBJECTIVE: The patient is a 68-year-old female, currently still have some nausea, mild abdominal pain, and has been NPO. The patient has no fever. Her white counts are normal. OBJECTIVE: VITAL SIGNS: Blood pressure 129/63, pulse 88, respirations 18, and temp is 98.6. HEENT: NAD. CHEST: Bilateral clear. CARDIOVASCULAR: Regular rhythm. No gallop. No murmur. ABDOMEN: Soft. Mild diffuse tenderness. The patient has good bowel sounds. She has a BM yesterday. EXTREMITIES: CCE. LABORATORY DATA: Her white counts are 3.9, hemoglobin 12, hematocrit 34, and platelets are 258,000. Chemistry panel, sodium 142, potassium 3.5, BUN 5, creatinine 0.5, and glucose is 89. C-reactive protein is 7.6. Her CT of abdomen is showing status post partial colon resection in the area of splenic flexure, severe pancolitis, and pneumatosis involving dilated pre-anastomotic segment of the colon, right hemicolon, and the splenic flexure. Some degree of partial obstruction at the level of the anastomosis is not excluded. Post anastomotic descending and sigmoid colon is nondilated, but shows wall thickening and moderate inflammation as well as no abscess, no evidence of perforation, and [id number] free fluid. ASSESSMENT: 1. Abdominal pain. 2. Status post laparotomy, possible duodenal mass. 3. Hypertension. 4. Diabetes. PLAN: The patient is currently NPO. Discussed with the surgery. The patient is refusing to go to [facility]. We will start TPN, keep her NPO, and continue IV antibiotics. Also, GI is on case. Surgery is also on case. Mark Meehan M.D. DR: RADHA JOB#: [id number] CC:
[2018-10-22] VITALS: BP 121/59
[2018-10-22 04:00] VITALS: BP 118/60
[2018-10-22] MEDS: 1/2NS w/KCl 20mEq 1000ml 1,000 ML IV SCH ×3 (05:06→21:09)
[2018-10-22] MEDS: Piperacillin/Tazobactam 3.375 GM in D5W 110 ML IVPB SCH ×3 (05:14→21:09)
[2018-10-22] MEDS: Morphine Sulfate 2mg/ml Inj IVP PRN (05:48)
[2018-10-22] MEDS: NovoLOG Insulin Flexpen SUBQ SCH ×2 (06:27→17:39)
[2018-10-22 06:52] LABS: ANION GAP 10 mmol/L (5-15); BLOOD UREA NITROGEN 4 mg/dL (7-18); CALCIUM 8.3 MG/DL (8.5-10.1); CARBON DIOXIDE 25 MMOL/L (21-32); CHLORIDE 107 MMOL/L (98-107); CREATININE 0.6 MG/DL (0.55-1.30); POTASSIUM 3.3 MMOL/L (3.5-5.1); SODIUM 142 MMOL/L (136-145)
[2018-10-22 06:53] LABS: BASOPHILS % (AUTO) 0.7 % (0.0-2.0); EOSINOPHILS % (AUTO) 5.7 % (0.0-3.0); HEMATOCRIT 35.3 % (37.0-47.0); LYMPHOCYTES % (AUTO) 30.5 % (20.0-45.0); MEAN CORPUSCULAR VOLUME 78 FL (80-99); MONOCYTES % (AUTO) 9.7 % (1.0-10.0); NEUTROPHILS % (AUTO) 53.4 % (45.0-75.0); PLATELET COUNT 254 K/UL (150-450); RED BLOOD COUNT 4.51 M/UL (4.20-5.40); RED CELL DISTRIBUTION WIDTH 11.9 % (11.6-14.8); WHITE BLOOD COUNT 3.8 K/UL (4.8-10.8)
--- NOTE | 2018-10-22 07:21 | General Progress Note ---
Assessment/Plan Assessment/Plan ASSESSMENT AND RECS # Leukopenia - multiple etiologies possible including most common which are medication-induced, infection versus viral syndrome --> Continue to monitor and trend wbc for improvement --> Hep panel and HIV have been ordered --> CT shows: Status post partial colon resection in the area of the splenic flexure. Severe pancolitis and pneumatosis involving a dilated preanastomotic segment of the colon (Right hemicolon to splenic flexure). Some degree of partial obstruction at the level of the anastomosis is not excluded. Postanastomotic descending and sigmoid colon is nondilated but shows wall thickening and moderate inflammation as wel # Stage I Colon cancer. s/p surgery Status post partial colon resection in the area of the splenic flexure. Severe pancolitis and pneumatosis involving a dilated preanastomotic segment of the colon (Right hemicolon to splenic flexure) . Some degree of partial obstruction at the level of the anastomosis is not excluded. Postanastomotic descending and sigmoid colon is nondilated but shows wall thickening and moderate inflammation as well. --> no hx of mets --> cea is 2.2 --> outpatient screening/surveillance with colo prn # Urinary tract infection. ID is following, appreciate recs. --> On abx, empiric tx. --> urine culture results pending # Abdominal pain. Surgery and GI are following, appreciate recs. --> Rule out obstruction. --> Continue supportive care with surgery --> consider transfer as per surgery --> IV fluid hydration, pain management, and NPO for now --> may need tpn --> refusing transfer to [facility] # Nausea and vomiting, suspect due to the above. --> Continue supportive care with antinausea medicine and hydration as needed --> ronnie gi and surg recs GREATLY APPRECIATE CONSULTATION. Subjective Constitutional: Denies: no symptoms, chills, diaphoresis, fever, malaise, weakness, other HEENT: Denies: no symptoms, eye pain, blurred vision, tearing, double vision, ear pain, ear discharge, nose pain, nose congestion, throat pain, throat swelling, mouth pain, mouth swelling, other Cardiovascular: Denies: no symptoms, chest pain, edema, irregular heart rate, lightheadedness, palpitations, syncope, other Respiratory: Denies: no symptoms, cough, orthopnea, shortness of breath, SOB with excertion, SOB at rest, sputum, stridor, wheezing, other Gastrointestinal/Abdominal: Denies: no symptoms, abdomen distended, abdominal pain, black stools, tarry stools, blood in stool, constipated, diarrhea, difficulty swallowing, nausea, poor appetite, poor fluid intake, rectal bleeding , vomiting, other Genitourinary: Denies: no symptoms, burning, discharge, frequency, flank pain, hematuria, incontinence, pain, urgency, other Neurologic/Psychiatric: Denies: no symptoms, anxiety, depressed, emotional problems, headache, numbness, paresthesia, pre-existing deficit, seizure, tingling, tremors, weakness, other Endocrine: Denies: no symptoms, excessive sweating, flushing, intolerance to cold, intolerance to heat, increased hunger, increased thirst, increased urine, unexplained weight gain, unexplained weight loss, other Allergies: Coded Allergies: No Known Allergies (Unverified , 10/18/18) Subjective having some gas, no bm, consider tpn to start, has been refusing transfer to [facility] Objective Last 24 Hour Vital Signs Date Time Temp Pulse Resp B/P (MAP) Pulse Ox O2 Delivery O2 Flow Rate FiO2 10/22/18 04:00 98.0 79 20 118/60 (79) 97 10/22/18 00:00 98.8 86 20 121/59 (79) 97 10/21/18 21:00 Room Air 10/21/18 20:00 98.1 64 19 110/63 (79) 97 10/21/18 16:00 98.4 92 20 124/61 (82) 97 10/21/18 12:00 98.9 88 18 129/63 (85) 96 10/21/18 09:00 Room Air 10/21/18 08:00 98.9 18 108/62 (77) 98 Intake and Output 10/21/18 10/22/18 18:59 06:59 Intake Total 992.5 ml 1137.5 ml Balance 992.5 ml 1137.5 ml IV Total 992.5 ml 1137.5 ml # Voids 2 4 # Bowel Movements 1 Laboratory Tests 10/22/18 06:00: White Blood Count 3.8L, Red Blood Count 4.51, Hemoglobin 12.0, Hematocrit 35.3L , Mean Corpuscular Volume 78L, Mean Corpuscular Hemoglobin 26.5L, Mean Corpuscular Hemoglobin Concent 33.9, Red Cell Distribution Width 11.9, Platelet Count 254, Mean Platelet Volume 6.1L, Neutrophils (%) (Auto) 53.4, Lymphocytes ( %) (Auto) 30.5, Monocytes (%) (Auto) 9.7, Eosinophils (%) (Auto) 5.7H, Basophils (%) (Auto) 0.7, Sodium Level 142, Potassium Level 3.3L, Chloride Level 107, Carbon Dioxide Level 25, Anion Gap 10, Blood Urea Nitrogen 4L, Creatinine 0.6, Estimat Glomerular Filtration Rate > 60, Glucose Level 71L, Calcium Level 8.3L Height (Feet): 5 Height (Inches): 3.00 Weight (Pounds): 163 General Appearance: lethargic EENT: normal ENT inspection Neck: supple Cardiovascular: normal rate Respiratory/Chest: normal breath sounds Abdomen: no mass Extremities: non-tender Edema: trace edema Neurologic: alert Skin: warm/dry Jose Barreto MD Oct 22, 2018 07:21
[2018-10-22 08:00] VITALS: BP 136/77
[2018-10-22] MEDS ORDERED: Heparin 2000 units/Ns 1000ml INJ PRN (09:30)
[2018-10-22] MEDS ORDERED: Lidocaine 1% Plain 30 ml INJ PRN (09:30)
--- NOTE | 2018-10-22 10:50 | GI Progress Note ---
Assessment/Plan Problems: (1) H/O abdominal surgery ICD Codes: Z98.890 - Other specified postprocedural states SNOMED: 092355051, 066349120 (2) Weight loss ICD Codes: R63.4 - Abnormal weight loss SNOMED: 47224573, 870554938 (3) Dehydration ICD Codes: E86.0 - Dehydration SNOMED: 14448613 (4) Abdominal pain ICD Codes: R10.9 - Unspecified abdominal pain SNOMED: 19296702 Qualifiers: Qualified Codes: R10.84 - Generalized abdominal pain (5) Nausea & vomiting ICD Codes: R11.2 - Nausea with vomiting, unspecified SNOMED: 58894723 Qualifiers: Qualified Codes: R11.2 - Nausea with vomiting, unspecified Status: stable, unchanged Status Narrative Discussed with Dr. Benton Assessment/Plan CT AP reviewed >> - Status post partial colon resection in the area of the splenic flexure. - Severe pancolitis and pneumatosis involving a dilated preanastomotic segment of the colon(Right hemicolon to splenic flexure). - Some degree of partial obstruction at the level of the anastomosis is not excluded. - Postanastomotic descending and sigmoid colon is nondilated but shows wall thickening and moderate inflammation as well. - No abscess or evidence of perforation. - Mild to moderate free fluid. history of recent abdominal surgery N/V has resolved at this time fu surgical recs >> plan to transfer back to primary surgeon PICC line placement, start TPN today pain mgmt zofran prn IV hydration NPO fu labs The patient was seen and examined at bedside and all new and available data was reviewed in the patients chart. I agree with the above findings, impression and plan. (Patient seen earlier today. Signature stamp does not reflect patient encounter time.). - Pritesh Benton MD Subjective Subjective Complaints of abdominal pain when urinating Denies any nausea vomiting or diarrhea Complaining of hunger Objective Last 24 Hour Vital Signs Date Time Temp Pulse Resp B/P (MAP) Pulse Ox O2 Delivery O2 Flow Rate FiO2 10/22/18 08:00 98.9 112 19 136/77 (96) 99 10/22/18 04:00 98.0 79 20 118/60 (79) 97 10/22/18 00:00 98.8 86 20 121/59 (79) 97 10/21/18 21:00 Room Air 10/21/18 20:00 98.1 64 19 110/63 (79) 97 10/21/18 16:00 98.4 92 20 124/61 (82) 97 10/21/18 12:00 98.9 88 18 129/63 (85) 96 Intake and Output 10/21/18 10/22/18 19:00 07:00 Intake Total 992.5 ml 1137.5 ml Balance 992.5 ml 1137.5 ml IV Total 992.5 ml 1137.5 ml # Voids 2 4 # Bowel Movements 1 Laboratory Tests Test 10/22/18 06:00 White Blood Count 3.8 K/UL (4.8-10.8) L Red Blood Count 4.51 M/UL (4.20-5.40) Hemoglobin 12.0 G/DL (12.0-16.0) Hematocrit 35.3 % (37.0-47.0) L Mean Corpuscular Volume 78 FL (80-99) L Mean Corpuscular Hemoglobin 26.5 PG (27.0-31.0) L Mean Corpuscular Hemoglobin Concent 33.9 G/DL (32.0-36.0) Red Cell Distribution Width 11.9 % (11.6-14.8) Platelet Count 254 K/UL (150-450) Mean Platelet Volume 6.1 FL (6.5-10.1) L Neutrophils (%) (Auto) 53.4 % (45.0-75.0) Lymphocytes (%) (Auto) 30.5 % (20.0-45.0) Monocytes (%) (Auto) 9.7 % (1.0-10.0) Eosinophils (%) (Auto) 5.7 % (0.0-3.0) H Basophils (%) (Auto) 0.7 % (0.0-2.0) Sodium Level 142 MMOL/L (136-145) Potassium Level 3.3 MMOL/L (3.5-5.1) L Chloride Level 107 MMOL/L (98-107) Carbon Dioxide Level 25 MMOL/L (21-32) Anion Gap 10 mmol/L (5-15) Blood Urea Nitrogen 4 mg/dL (7-18) L Creatinine 0.6 MG/DL (0.55-1.30) Estimat Glomerular Filtration Rate > 60 mL/min (>60) Glucose Level 71 MG/DL (74-106) L Calcium Level 8.3 MG/DL (8.5-10.1) L Hepatitis A IgM Antibody Pending Hepatitis B Surface Antigen Pending Hepatitis B Core IgM Antibody Pending Hepatitis C Antibody Pending HIV (1&2) Antibody Rapid Negative (NEGATIVE) Height (Feet): 5 Height (Inches): 3.00 Weight (Pounds): 163 General Appearance: WD/WN, no apparent distress, alert Cardiovascular: normal rate Respiratory/Chest: normal breath sounds, no respiratory distress Abdominal Exam: normal bowel sounds, non tender, soft Extremities: normal range of motion, non-tender Keyonna Giang NP Oct 22, 2018 10:50
[2018-10-22] MEDS ORDERED: Dextrose 10% 1,000 ML IV PRN ×2 (11:00)
--- NOTE | 2018-10-22 11:38 | General Progress Note ---
Assessment/Plan Status: stable Assessment/Plan anxiety d/o ativan prn the pt was provided with st/ro klonopin .5mg qhs the pt has capacity to make decisions/ Subjective Neurologic/Psychiatric: Reports: anxiety, depressed Allergies: Coded Allergies: No Known Allergies (Unverified , 10/18/18) Subjective the pt was severely anxious about TPN and was refusing picc line the pt s nurse was present and she agreed to picc line eventually the pt has capacity. the pt refused Ativan Objective Last 24 Hour Vital Signs Date Time Temp Pulse Resp B/P (MAP) Pulse Ox O2 Delivery O2 Flow Rate FiO2 10/22/18 09:00 Room Air 10/22/18 08:00 98.9 112 19 136/77 (96) 99 10/22/18 04:00 98.0 79 20 118/60 (79) 97 10/22/18 00:00 98.8 86 20 121/59 (79) 97 10/21/18 21:00 Room Air 10/21/18 20:00 98.1 64 19 110/63 (79) 97 10/21/18 16:00 98.4 92 20 124/61 (82) 97 10/21/18 12:00 98.9 88 18 129/63 (85) 96 Intake and Output 10/21/18 10/22/18 19:00 07:00 Intake Total 992.5 ml 1137.5 ml Balance 992.5 ml 1137.5 ml IV Total 992.5 ml 1137.5 ml # Voids 2 4 # Bowel Movements 1 Laboratory Tests 10/22/18 06:00: White Blood Count 3.8L, Red Blood Count 4.51, Hemoglobin 12.0, Hematocrit 35.3L , Mean Corpuscular Volume 78L, Mean Corpuscular Hemoglobin 26.5L, Mean Corpuscular Hemoglobin Concent 33.9, Red Cell Distribution Width 11.9, Platelet Count 254, Mean Platelet Volume 6.1L, Neutrophils (%) (Auto) 53.4, Lymphocytes ( %) (Auto) 30.5, Monocytes (%) (Auto) 9.7, Eosinophils (%) (Auto) 5.7H, Basophils (%) (Auto) 0.7, Sodium Level 142, Potassium Level 3.3L, Chloride Level 107, Carbon Dioxide Level 25, Anion Gap 10, Blood Urea Nitrogen 4L, Creatinine 0.6, Estimat Glomerular Filtration Rate > 60, Glucose Level 71L, Calcium Level 8.3L, Hepatitis A IgM Antibody [Pending], Hepatitis B Surface Antigen [Pending], Hepatitis B Core IgM Antibody [Pending], Hepatitis C Antibody [Pending], HIV (1&2) Antibody Rapid Negative Height (Feet): 5 Height (Inches): 3.00 Weight (Pounds): 163 General Appearance: alert Neurologic: oriented x 3, responsive, depressed affect Anna Camacho MD Oct 22, 2018 11:37
[2018-10-22 12:16] VITALS: BP 116/70
--- NOTE | 2018-10-22 12:34 | Diagnostic Imaging Report ---
Indications: Needs long-term IV access Technique: Ultrasound confirms patent compressible left basilic vein. Total sterile technique, including sterile probe cover and sterile gel, hat, mask, sterile gown, large sterile drape, and preparation with 2% chlorhexidine utilized. Local anesthesia with 1% lidocaine. Under real-time ultrasound guidance, puncture basilic vein using 21-gauge needle, documented and archived, passage 0.018 guidewire under direct fluoroscopy, which was used to determine appropriate catheter length, exchange for 5 Singaporean peel-away sheath. 5 [place]an Bard dual-lumen power PICC cut to 0.1 cm. It was inserted through the peel-away sheath. Peel-away sheath and guidewire removed. Catheter fixed to the skin. Both catheter ports aspirated and flushed. Patient tolerated procedure well, without immediate complication. Digital radiograph documents satisfactory catheter tip position, at the cavoatrial junction. Total fluoroscopy time 8.8 seconds. Total dose area product [id number] mGycm2 Total number of images: 1 Impression: Successful placement of left arm PICC under sonographic and fluoroscopic guidance, as described above.
[2018-10-22 16:00] VITALS: BP 118/55
--- NOTE | 2018-10-22 16:52 | General Surgery Progress Note ---
General Surgery-Progress Note Subjective Additional Comments no acute events. no fevers. tachycardia improved. no n/v/f/c. does not want to be transferred and wants to be at [facility] for care Objective Last 24 Hour Vital Signs Date Time Temp Pulse Resp B/P (MAP) Pulse Ox O2 Delivery O2 Flow Rate FiO2 10/22/18 16:00 97.7 93 18 118/55 (76) 95 10/22/18 12:16 99.8 84 18 116/70 (85) 99 10/22/18 09:00 Room Air 10/22/18 08:00 98.9 112 19 136/77 (96) 99 10/22/18 04:00 98.0 79 20 118/60 (79) 97 10/22/18 00:00 98.8 86 20 121/59 (79) 97 10/21/18 21:00 Room Air 10/21/18 20:00 98.1 64 19 110/63 (79) 97 I&O Intake and Output 10/21/18 10/22/18 19:00 07:00 Intake Total 992.5 ml 1137.5 ml Balance 992.5 ml 1137.5 ml IV Total 992.5 ml 1137.5 ml # Voids 2 4 # Bowel Movements 1 Wound: clean, dry, intact Drains: none Cardiovascular: RSR Respiratory: clear Abdomen: soft, flat, distended, tenderness, present bowel sounds Extremities: no tenderness, no cyanosis Laboratory Tests Test 10/22/18 06:00 White Blood Count 3.8 K/UL (4.8-10.8) L Red Blood Count 4.51 M/UL (4.20-5.40) Hemoglobin 12.0 G/DL (12.0-16.0) Hematocrit 35.3 % (37.0-47.0) L Mean Corpuscular Volume 78 FL (80-99) L Mean Corpuscular Hemoglobin 26.5 PG (27.0-31.0) L Mean Corpuscular Hemoglobin Concent 33.9 G/DL (32.0-36.0) Red Cell Distribution Width 11.9 % (11.6-14.8) Platelet Count 254 K/UL (150-450) Mean Platelet Volume 6.1 FL (6.5-10.1) L Neutrophils (%) (Auto) 53.4 % (45.0-75.0) Lymphocytes (%) (Auto) 30.5 % (20.0-45.0) Monocytes (%) (Auto) 9.7 % (1.0-10.0) Eosinophils (%) (Auto) 5.7 % (0.0-3.0) H Basophils (%) (Auto) 0.7 % (0.0-2.0) Sodium Level 142 MMOL/L (136-145) Potassium Level 3.3 MMOL/L (3.5-5.1) L Chloride Level 107 MMOL/L (98-107) Carbon Dioxide Level 25 MMOL/L (21-32) Anion Gap 10 mmol/L (5-15) Blood Urea Nitrogen 4 mg/dL (7-18) L Creatinine 0.6 MG/DL (0.55-1.30) Estimat Glomerular Filtration Rate > 60 mL/min (>60) Glucose Level 71 MG/DL (74-106) L Calcium Level 8.3 MG/DL (8.5-10.1) L Hepatitis A IgM Antibody Pending Hepatitis B Surface Antigen Pending Hepatitis B Core IgM Antibody Pending Hepatitis C Antibody Pending HIV (1&2) Antibody Rapid Negative (NEGATIVE) Plan Problems: (1) Abdominal pain Assessment & Plan: abdominal pain n/v resolved labs noted. abd soft, distention, tender/guarding but no peritonitis. surgical wounds c/d/i CT noted. very concerning. CT findings do not correlate with clinical exam as she has been afebrile without peritonitis. now low grade fevers. discussed findings with her primary Surgeon from [facility] Likely infectious colitis as clinically does not seem ischemic. When discussing with primary surgeon he states he would be okay to have her transferred to [facility] for continued care post op. I anticipate with severity of colitis, bowel edema, pneumatosis this will take some time to recover prior to resuming diet. KUB noted labs noted NPO IV fluids IV abx c diff PICC/TPN -will follow with recs. thank you José Miguel Flores Oct 22, 2018 16:52
[2018-10-22] MEDS ORDERED: Ipratropium 0.02% Inh Soln 2.5ml UD HHN PRN (19:15)
[2018-10-22 20:00] VITALS: BP 148/71
--- NOTE | 2018-10-22 20:22 | Infectious Diseases Prog Note ---
Assessment/Plan Problems: (1) Pneumatosis intestinalis of large intestine Assessment & Plan: at the anastomosis site, suspect ischemia related to recent surgery , continue wide spectrum antibiotics coverage with zosyn , continue conservative management, with bowel rest and hydration . may need surgical exploration if no improvement with conservative management (2) UTI (urinary tract infection) Assessment & Plan: with small colonies of gram positive cocci and gram negative rods , most likely contaminant , already on zosyn (3) Nausea & vomiting Assessment & Plan: due to the above, continue supportive care (4) Abdominal pain Assessment & Plan: due to the above, continue pain management as needed Subjective Constitutional: Reports: no symptoms HEENT: Reports: no symptoms Respiratory: Reports: no symptoms Breasts: Reports: no symptoms Cardiovascular: Reports: no symptoms Gastrointestinal/Abdominal: Reports: nausea, bloating Genitourinary: Reports: no symptoms Neurologic: Reports: no symptoms Psychiatric: Reports: no symptoms Skin: Reports: no symptoms Endocrine: Reports: no symptoms Hematologic: Reports: no symptoms Musculoskeletal: Reports: no symptoms Allergies: Coded Allergies: No Known Allergies (Unverified , 10/18/18) Objective Vital Signs Last 24 Hour Vital Signs Date Time Temp Pulse Resp B/P (MAP) Pulse Ox O2 Delivery O2 Flow Rate FiO2 10/22/18 16:00 97.7 93 18 118/55 (76) 95 10/22/18 12:16 99.8 84 18 116/70 (85) 99 10/22/18 09:00 Room Air 10/22/18 08:00 98.9 112 19 136/77 (96) 99 10/22/18 04:00 98.0 79 20 118/60 (79) 97 10/22/18 00:00 98.8 86 20 121/59 (79) 97 10/21/18 21:00 Room Air Height (Feet): 5 Height (Inches): 3.00 Weight (Pounds): 163 General Appearance: WD/WN, no acute distress HEENT: normocephalic, atraumatic, anicteric, mucous membranes moist, PERRL Respiratory/Chest: chest wall non-tender, lungs clear, normal breath sounds, no respiratory distress, no accessory muscle use Cardiovascular: normal peripheral pulses, normal rate, regular rhythm, no gallop/murmur, no JVD Abdomen: no organomegaly, no mass, no scars, hypoactive bowel sounds, distended , tender Genitourinary: normal external genitalia Extremities: no cyanosis, no clubbing Skin: no rash, no lesions, no ulcers Neurologic/Psychiatric: alert, oriented x 3, responsive Lymphatic: no neck adenopathy, no groin adenopathy Musculoskeletal: normal muscle bulk, no effusion Microbiology Date/Time Source Procedure Growth Status 10/20/18 22:35 Blood Blood Culture - Preliminary NO GROWTH AFTER 24 HOURS Resulted 10/20/18 22:30 Blood Blood Culture - Preliminary NO GROWTH AFTER 24 HOURS Resulted Laboratory Tests Test 10/22/18 06:00 White Blood Count 3.8 K/UL (4.8-10.8) L Red Blood Count 4.51 M/UL (4.20-5.40) Hemoglobin 12.0 G/DL (12.0-16.0) Hematocrit 35.3 % (37.0-47.0) L Mean Corpuscular Volume 78 FL (80-99) L Mean Corpuscular Hemoglobin 26.5 PG (27.0-31.0) L Mean Corpuscular Hemoglobin Concent 33.9 G/DL (32.0-36.0) Red Cell Distribution Width 11.9 % (11.6-14.8) Platelet Count 254 K/UL (150-450) Mean Platelet Volume 6.1 FL (6.5-10.1) L Neutrophils (%) (Auto) 53.4 % (45.0-75.0) Lymphocytes (%) (Auto) 30.5 % (20.0-45.0) Monocytes (%) (Auto) 9.7 % (1.0-10.0) Eosinophils (%) (Auto) 5.7 % (0.0-3.0) H Basophils (%) (Auto) 0.7 % (0.0-2.0) Sodium Level 142 MMOL/L (136-145) Potassium Level 3.3 MMOL/L (3.5-5.1) L Chloride Level 107 MMOL/L (98-107) Carbon Dioxide Level 25 MMOL/L (21-32) Anion Gap 10 mmol/L (5-15) Blood Urea Nitrogen 4 mg/dL (7-18) L Creatinine 0.6 MG/DL (0.55-1.30) Estimat Glomerular Filtration Rate > 60 mL/min (>60) Glucose Level 71 MG/DL (74-106) L Calcium Level 8.3 MG/DL (8.5-10.1) L Hepatitis A IgM Antibody Pending Hepatitis B Surface Antigen Pending Hepatitis B Core IgM Antibody Pending Hepatitis C Antibody Pending HIV (1&2) Antibody Rapid Negative (NEGATIVE) Current Medications Medications (Trade) Dose Ordered Sig/Leatha Route PRN Reason Start Time Stop Time Status Last Admin Dose Admin Chlorhexidine Gluconate (Roxana-Hex 2%) 1 applic DAILY@2000 TOPIC 10/22/18 20:00 11/21/18 19:59 Clonazepam (KlonoPIN) 0.5 mg BEDTIME ORAL 10/22/18 21:00 10/29/18 20:59 Dextrose 1,000 ml @ 0 mls/hr Q24H PRN IV PN interrupted or unavailable 10/22/18 11:00 11/21/18 10:59 Dextrose (Dextrose 50%) 25 ml Q30M PRN IV Hypoglycemia 10/22/18 11:00 11/21/18 10:59 Dextrose (Dextrose 50%) 50 ml Q30M PRN IV Hypoglycemia 10/22/18 11:00 11/21/18 10:59 Fat Emulsion Intravenous 216 ml/Amino Acids/ Electrolytes/ Dextrose 1,848 ml @ 76.692 mls/ hr Q24H IV 10/22/18 21:00 11/21/18 20:59 Heparin Sodium/ Sodium Chloride (Heparin 2000 units/Ns 1000ml premix) 2,000 unit ONCE PRN INJ PICC 10/22/18 09:30 10/23/18 23:59 Insulin Aspart (NovoLOG) Q6HR SUBQ 10/22/18 18:00 11/21/18 17:59 Lidocaine HCl (Xylocaine 1% 30ml) 30 ml ONCE PRN INJ PICC 10/22/18 09:30 10/23/18 23:59 Lorazepam (Ativan) 2 mg Q6H PRN ORAL For Anxiety 10/22/18 11:45 10/29/18 11:44 Morphine Sulfate (Morphine Sulfate) 0.5 mg Q4H PRN IVP Severe Pain (Pain Scale 7-10) 10/18/18 20:30 10/25/18 20:29 10/22/18 05:48 Ondansetron HCl (Zofran) 4 mg Q4H PRN IVP Nausea & Vomiting 10/18/18 20:30 11/17/18 20:29 10/20/18 10:17 Piperacillin Sod/ Tazobactam Sod 3.375 gm/Dextrose 110 ml @ 27.5 mls/hr EVERY 8 HOURS IVPB 10/20/18 15:00 10/25/18 14:59 10/22/18 14:03 Sodium 1,000 ml @ 15 mls/hr Q24H IV 10/22/18 21:00 11/21/18 20:59 Sodium 1,000 ml @ 100 mls/hr Q10H IV 10/20/18 13:00 10/22/18 20:59 10/22/18 14:03 Tahir Cervantes M.D. Oct 22, 2018 20:22
[2018-10-22] MEDS ORDERED: FAT EMULSION 20% IV SCH (21:00)
[2018-10-22] MEDS ORDERED: QUEtiapine 200mg tab ORAL SCH (21:00)
[2018-10-22] MEDS: clonazePAM 0.5mg tab ORAL SCH ×2 (21:00→21:08)
[2018-10-22] MEDS ORDERED: TPN IV SCH (21:00)
[2018-10-22] MEDS: Dyna-Hex 2% Top Sol 2oz TOPIC SCH (21:08)
--- NOTE | 2018-10-22 21:30 | Progress Note ---
DATE: 10/22/2018 SUBJECTIVE: This is an elderly female. Abdominal pain is better. No distress. NPO. She has a central line, PICC line. The patient is currently otherwise comfortable. No BM. Good bowel sounds. OBJECTIVE: VITAL SIGNS: Blood pressure 118/55, pulse 93, and temp is 97.7. CHEST: Bilaterally clear. CARDIOVASCULAR: Regular rhythm. ABDOMEN: Diffuse tenderness. Good bowel sounds. EXTREMITIES: CCE. LABORATORY DATA: White counts is 3.8 and hemoglobin 12. Chemistry panel, potassium 3.3, BUN 4, and creatinine 0.6. ASSESSMENT: 1. Abdominal pain. 2. Colon cancer. 3. Diabetes. 4. Hypokalemia. PLAN: 1. The patient discussed with the surgery in detail. 2. I will keep her NPO. 3. I gave her potassium replacement. 4. Restart TPN. 5. Continue current treatment and NPO and monitor. 6. The patient probably may need a scan in a couple of days. Mark Meehan M.D. DR: RADHA JOB#: [id number] CC:
[2018-10-23] VITALS: BP 124/73
[2018-10-23 04:00] VITALS: BP 129/78
[2018-10-23] MEDS: Piperacillin/Tazobactam 3.375 GM in D5W 110 ML IVPB SCH ×3 (05:28→22:00)
[2018-10-23] MEDS: NovoLOG Insulin Flexpen SUBQ SCH ×5 (06:00→22:44)
[2018-10-23 06:10] LABS: BASOPHILS % (AUTO) 0.9 % (0.0-2.0); EOSINOPHILS % (AUTO) 4.7 % (0.0-3.0); HEMATOCRIT 36.3 % (37.0-47.0); HEMOGLOBIN 12.3 G/DL (12.0-16.0); LYMPHOCYTES % (AUTO) 32.1 % (20.0-45.0); MEAN CORPUSCULAR VOLUME 78 FL (80-99); MONOCYTES % (AUTO) 12.3 % (1.0-10.0); NEUTROPHILS % (AUTO) 49.9 % (45.0-75.0); PLATELET COUNT 246 K/UL (150-450); RED BLOOD COUNT 4.66 M/UL (4.20-5.40); WHITE BLOOD COUNT 3.6 K/UL (4.8-10.8)
[2018-10-23 06:37] LABS: ANION GAP 8 mmol/L (5-15); BLOOD UREA NITROGEN 4 mg/dL (7-18); CALCIUM 8.5 MG/DL (8.5-10.1); CARBON DIOXIDE 26 MMOL/L (21-32); CHLORIDE 107 MMOL/L (98-107); CREATININE 0.5 MG/DL (0.55-1.30); PHOSPHORUS 2.3 MG/DL (2.5-4.9); POTASSIUM 3.4 MMOL/L (3.5-5.1); SODIUM 141 MMOL/L (136-145)
[2018-10-23 08:00] VITALS: BP 114/60
[2018-10-23] MEDS ORDERED: Benztropine 1mg tab ORAL SCH (09:00)
[2018-10-23] MEDS ORDERED: chlorproMAZINE 25mg tab ORAL ONE (09:00)
[2018-10-23] MEDS ORDERED: Tamsulosin 0.4mg cap ORAL SCH (09:00)
[2018-10-23] MEDS ORDERED: Docusate 100mg cap ORAL SCH (09:00)
[2018-10-23] MEDS ORDERED: LOXAPINE 25 MG ORAL SCH (09:00)
[2018-10-23] MEDS: Morphine Sulfate 2mg/ml Inj IVP PRN (10:06)
--- NOTE | 2018-10-23 11:44 | GI Progress Note ---
Assessment/Plan Problems: (1) H/O abdominal surgery ICD Codes: Z98.890 - Other specified postprocedural states SNOMED: 343400255, 662964774 (2) Weight loss ICD Codes: R63.4 - Abnormal weight loss SNOMED: 44039147, 659768331 (3) Dehydration ICD Codes: E86.0 - Dehydration SNOMED: 44067471 (4) Abdominal pain ICD Codes: R10.9 - Unspecified abdominal pain SNOMED: 28657312 Qualifiers: Qualified Codes: R10.84 - Generalized abdominal pain (5) Nausea & vomiting ICD Codes: R11.2 - Nausea with vomiting, unspecified SNOMED: 48060838 Qualifiers: Qualified Codes: R11.2 - Nausea with vomiting, unspecified Status: progressing Status Narrative Discussed with Dr. Benton. Assessment/Plan CT AP reviewed >> - Status post partial colon resection in the area of the splenic flexure. - Severe pancolitis and pneumatosis involving a dilated preanastomotic segment of the colon(Right hemicolon to splenic flexure). - Some degree of partial obstruction at the level of the anastomosis is not excluded. - Postanastomotic descending and sigmoid colon is nondilated but shows wall thickening and moderate inflammation as well. - No abscess or evidence of perforation. - Mild to moderate free fluid. history of recent abdominal surgery N/V has resolved at this time fu surgical recs TPN bowel rest pain mgmt zofran prn IV hydration NPO fu labs The patient was seen and examined at bedside and all new and available data was reviewed in the patients chart. I agree with the above findings, impression and plan. (Patient seen earlier today. Signature stamp does not reflect patient encounter time.). - Pritesh Benton MD Subjective Subjective Complaints of abdominal pain when urinating Denies any nausea vomiting or diarrhea Complaining of hunger Objective Last 24 Hour Vital Signs Date Time Temp Pulse Resp B/P (MAP) Pulse Ox O2 Delivery O2 Flow Rate FiO2 10/23/18 08:03 Room Air 10/23/18 08:00 97.7 98 19 114/60 (78) 96 10/23/18 04:00 98.2 98 20 129/78 (95) 96 10/23/18 00:00 98.9 98 18 124/73 (90) 95 10/22/18 21:00 Room Air 10/22/18 20:00 98.7 93 18 148/71 (96) 98 10/22/18 16:00 97.7 93 18 118/55 (76) 95 10/22/18 12:16 99.8 84 18 116/70 (85) 99 Intake and Output 10/22/18 10/23/18 19:00 07:00 Intake Total 1200 ml 875.228 ml Balance 1200 ml 875.228 ml IV Total 1200 ml 875.228 ml # Voids 6 5 Laboratory Tests Test 10/23/18 04:06 White Blood Count 3.6 K/UL (4.8-10.8) L Red Blood Count 4.66 M/UL (4.20-5.40) Hemoglobin 12.3 G/DL (12.0-16.0) Hematocrit 36.3 % (37.0-47.0) L Mean Corpuscular Volume 78 FL (80-99) L Mean Corpuscular Hemoglobin 26.4 PG (27.0-31.0) L Mean Corpuscular Hemoglobin Concent 33.9 G/DL (32.0-36.0) Red Cell Distribution Width 12.0 % (11.6-14.8) Platelet Count 246 K/UL (150-450) Mean Platelet Volume 6.5 FL (6.5-10.1) Neutrophils (%) (Auto) 49.9 % (45.0-75.0) Lymphocytes (%) (Auto) 32.1 % (20.0-45.0) Monocytes (%) (Auto) 12.3 % (1.0-10.0) H Eosinophils (%) (Auto) 4.7 % (0.0-3.0) H Basophils (%) (Auto) 0.9 % (0.0-2.0) Sodium Level 141 MMOL/L (136-145) Potassium Level 3.4 MMOL/L (3.5-5.1) L Chloride Level 107 MMOL/L (98-107) Carbon Dioxide Level 26 MMOL/L (21-32) Anion Gap 8 mmol/L (5-15) Blood Urea Nitrogen 4 mg/dL (7-18) L Creatinine 0.5 MG/DL (0.55-1.30) L Estimat Glomerular Filtration Rate > 60 mL/min (>60) Glucose Level 198 MG/DL (74-106) #H Calcium Level 8.5 MG/DL (8.5-10.1) Phosphorus Level 2.3 MG/DL (2.5-4.9) L Magnesium Level 1.6 MG/DL (1.8-2.4) L Height (Feet): 5 Height (Inches): 3.00 Weight (Pounds): 163 General Appearance: WD/WN, no apparent distress, alert Cardiovascular: normal rate Respiratory/Chest: normal breath sounds, no respiratory distress Abdominal Exam: normal bowel sounds, non tender, soft, incision site Extremities: normal range of motion, non-tender Keyonna Giang NP Oct 23, 2018 11:44
[2018-10-23 12:00] VITALS: BP 113/75
[2018-10-23] MEDS: LORazepam 1mg tab ORAL PRN ×2 (12:16→12:28)
--- NOTE | 2018-10-23 13:13 | General Surgery Progress Note ---
General Surgery-Progress Note Subjective Symptoms: improved Additional Comments still with pain but improved. had flatus. no BM yet Objective Last 24 Hour Vital Signs Date Time Temp Pulse Resp B/P (MAP) Pulse Ox O2 Delivery O2 Flow Rate FiO2 10/23/18 12:00 97.7 102 17 113/75 (88) 97 10/23/18 10:36 97.7 10/23/18 08:03 Room Air 10/23/18 08:00 97.7 98 19 114/60 (78) 96 10/23/18 04:00 98.2 98 20 129/78 (95) 96 10/23/18 00:00 98.9 98 18 124/73 (90) 95 10/22/18 21:00 Room Air 10/22/18 20:00 98.7 93 18 148/71 (96) 98 10/22/18 16:00 97.7 93 18 118/55 (76) 95 I&O Intake and Output 10/22/18 10/23/18 19:00 07:00 Intake Total 1200 ml 875.228 ml Balance 1200 ml 875.228 ml IV Total 1200 ml 875.228 ml # Voids 6 5 Wound: clean, dry, intact Drains: none Cardiovascular: RSR Respiratory: clear Abdomen: soft, distended, tenderness Extremities: no edema, no tenderness, no cyanosis Laboratory Tests Test 10/23/18 04:06 White Blood Count 3.6 K/UL (4.8-10.8) L Red Blood Count 4.66 M/UL (4.20-5.40) Hemoglobin 12.3 G/DL (12.0-16.0) Hematocrit 36.3 % (37.0-47.0) L Mean Corpuscular Volume 78 FL (80-99) L Mean Corpuscular Hemoglobin 26.4 PG (27.0-31.0) L Mean Corpuscular Hemoglobin Concent 33.9 G/DL (32.0-36.0) Red Cell Distribution Width 12.0 % (11.6-14.8) Platelet Count 246 K/UL (150-450) Mean Platelet Volume 6.5 FL (6.5-10.1) Neutrophils (%) (Auto) 49.9 % (45.0-75.0) Lymphocytes (%) (Auto) 32.1 % (20.0-45.0) Monocytes (%) (Auto) 12.3 % (1.0-10.0) H Eosinophils (%) (Auto) 4.7 % (0.0-3.0) H Basophils (%) (Auto) 0.9 % (0.0-2.0) Sodium Level 141 MMOL/L (136-145) Potassium Level 3.4 MMOL/L (3.5-5.1) L Chloride Level 107 MMOL/L (98-107) Carbon Dioxide Level 26 MMOL/L (21-32) Anion Gap 8 mmol/L (5-15) Blood Urea Nitrogen 4 mg/dL (7-18) L Creatinine 0.5 MG/DL (0.55-1.30) L Estimat Glomerular Filtration Rate > 60 mL/min (>60) Glucose Level 198 MG/DL (74-106) #H Calcium Level 8.5 MG/DL (8.5-10.1) Phosphorus Level 2.3 MG/DL (2.5-4.9) L Magnesium Level 1.6 MG/DL (1.8-2.4) L Plan Problems: (1) Abdominal pain Assessment & Plan: abdominal pain n/v resolved labs noted. abd soft, distention, tender/guarding but no peritonitis. surgical wounds c/d/i CT noted. very concerning. CT findings do not correlate with clinical exam as she has been afebrile without peritonitis. now low grade fevers. discussed findings with her primary Surgeon from [facility] Likely infectious colitis as clinically does not seem ischemic. When discussing with primary surgeon he states he would be okay to have her transferred to [facility] for continued care post op. I anticipate with severity of colitis, bowel edema, pneumatosis this will take some time to recover prior to resuming diet. KUB noted labs noted NPO IV fluids IV abx c diff PICC/TPN Plan to continue current care for a few more days. Will then repeat CT scan -will follow with recs. thank you José Miguel Flores Oct 23, 2018 13:13
--- NOTE | 2018-10-23 13:36 | Cardiac Electrophysiology PN ---
Subjective Subjective [id number] Objective Last 24 Hour Vital Signs Date Time Temp Pulse Resp B/P (MAP) Pulse Ox O2 Delivery O2 Flow Rate FiO2 10/23/18 12:00 97.7 102 17 113/75 (88) 97 10/23/18 10:36 97.7 10/23/18 08:03 Room Air 10/23/18 08:00 97.7 98 19 114/60 (78) 96 10/23/18 04:00 98.2 98 20 129/78 (95) 96 10/23/18 00:00 98.9 98 18 124/73 (90) 95 10/22/18 21:00 Room Air 10/22/18 20:00 98.7 93 18 148/71 (96) 98 10/22/18 16:00 97.7 93 18 118/55 (76) 95 Intake and Output 10/22/18 10/23/18 19:00 07:00 Intake Total 1200 ml 875.228 ml Balance 1200 ml 875.228 ml IV Total 1200 ml 875.228 ml # Voids 6 5 Laboratory Tests Test 10/23/18 04:06 White Blood Count 3.6 K/UL (4.8-10.8) L Red Blood Count 4.66 M/UL (4.20-5.40) Hemoglobin 12.3 G/DL (12.0-16.0) Hematocrit 36.3 % (37.0-47.0) L Mean Corpuscular Volume 78 FL (80-99) L Mean Corpuscular Hemoglobin 26.4 PG (27.0-31.0) L Mean Corpuscular Hemoglobin Concent 33.9 G/DL (32.0-36.0) Red Cell Distribution Width 12.0 % (11.6-14.8) Platelet Count 246 K/UL (150-450) Mean Platelet Volume 6.5 FL (6.5-10.1) Neutrophils (%) (Auto) 49.9 % (45.0-75.0) Lymphocytes (%) (Auto) 32.1 % (20.0-45.0) Monocytes (%) (Auto) 12.3 % (1.0-10.0) H Eosinophils (%) (Auto) 4.7 % (0.0-3.0) H Basophils (%) (Auto) 0.9 % (0.0-2.0) Sodium Level 141 MMOL/L (136-145) Potassium Level 3.4 MMOL/L (3.5-5.1) L Chloride Level 107 MMOL/L (98-107) Carbon Dioxide Level 26 MMOL/L (21-32) Anion Gap 8 mmol/L (5-15) Blood Urea Nitrogen 4 mg/dL (7-18) L Creatinine 0.5 MG/DL (0.55-1.30) L Estimat Glomerular Filtration Rate > 60 mL/min (>60) Glucose Level 198 MG/DL (74-106) #H Calcium Level 8.5 MG/DL (8.5-10.1) Phosphorus Level 2.3 MG/DL (2.5-4.9) L Magnesium Level 1.6 MG/DL (1.8-2.4) L Microbiology Date/Time Source Procedure Growth Status 10/20/18 22:35 Blood Blood Culture - Preliminary NO GROWTH AFTER 48 HOURS Resulted 10/20/18 22:30 Blood Blood Culture - Preliminary NO GROWTH AFTER 48 HOURS Resulted Abe Armendariz MD Oct 23, 2018 13:36
--- NOTE | 2018-10-23 14:04 | Infectious Diseases Prog Note ---
Assessment/Plan Problems: (1) Pneumatosis intestinalis of large intestine Assessment & Plan: at the anastomosis site, suspect ischemia related to recent surgery or infection , continue wide spectrum antibiotics coverage with zosyn , continue conservative management, with bowel rest and hydration . may need surgical exploration if no improvement with conservative management , repeat CT for follow up (2) UTI (urinary tract infection) Assessment & Plan: with small colonies of VRE and pseudomonas aeruginosa , most likely contaminant , already on zosyn (3) Abdominal pain Assessment & Plan: due to the above, continue pain management as needed (4) Tachycardia Assessment & Plan: unclear etiology , will order blood culture to rule out sepsis , transfer to [facility] , monitor cardiac enzymes , cardiology is following Subjective Constitutional: Reports: no symptoms HEENT: Reports: no symptoms Respiratory: Reports: no symptoms Breasts: Reports: no symptoms Cardiovascular: Reports: no symptoms Gastrointestinal/Abdominal: Reports: no symptoms Genitourinary: Reports: no symptoms Neurologic: Reports: no symptoms Psychiatric: Reports: no symptoms Skin: Reports: no symptoms Endocrine: Reports: no symptoms Hematologic: Reports: no symptoms Musculoskeletal: Reports: no symptoms Allergies: Coded Allergies: No Known Allergies (Unverified , 10/18/18) Objective Vital Signs Last 24 Hour Vital Signs Date Time Temp Pulse Resp B/P (MAP) Pulse Ox O2 Delivery O2 Flow Rate FiO2 10/23/18 12:00 97.7 102 17 113/75 (88) 97 10/23/18 10:36 97.7 10/23/18 08:03 Room Air 10/23/18 08:00 97.7 98 19 114/60 (78) 96 10/23/18 04:00 98.2 98 20 129/78 (95) 96 10/23/18 00:00 98.9 98 18 124/73 (90) 95 10/22/18 21:00 Room Air 10/22/18 20:00 98.7 93 18 148/71 (96) 98 10/22/18 16:00 97.7 93 18 118/55 (76) 95 Height (Feet): 5 Height (Inches): 3.00 Weight (Pounds): 163 General Appearance: WD/WN, no acute distress HEENT: normocephalic, atraumatic, anicteric, mucous membranes moist, PERRL Respiratory/Chest: chest wall non-tender, lungs clear, normal breath sounds, no respiratory distress, no accessory muscle use Cardiovascular: normal peripheral pulses, regular rhythm, no gallop/murmur, no JVD, tachycardia Abdomen: soft, non tender, no organomegaly, non distended, no mass, no scars, hypoactive bowel sounds Extremities: no cyanosis, no clubbing Skin: no rash, no lesions, no ulcers Neurologic/Psychiatric: alert, oriented x 3, responsive, normal mood/affect Lymphatic: no neck adenopathy, no groin adenopathy Musculoskeletal: normal muscle bulk, no effusion Microbiology Date/Time Source Procedure Growth Status 10/20/18 22:35 Blood Blood Culture - Preliminary NO GROWTH AFTER 48 HOURS Resulted 10/20/18 22:30 Blood Blood Culture - Preliminary NO GROWTH AFTER 48 HOURS Resulted Laboratory Tests Test 10/23/18 04:06 White Blood Count 3.6 K/UL (4.8-10.8) L Red Blood Count 4.66 M/UL (4.20-5.40) Hemoglobin 12.3 G/DL (12.0-16.0) Hematocrit 36.3 % (37.0-47.0) L Mean Corpuscular Volume 78 FL (80-99) L Mean Corpuscular Hemoglobin 26.4 PG (27.0-31.0) L Mean Corpuscular Hemoglobin Concent 33.9 G/DL (32.0-36.0) Red Cell Distribution Width 12.0 % (11.6-14.8) Platelet Count 246 K/UL (150-450) Mean Platelet Volume 6.5 FL (6.5-10.1) Neutrophils (%) (Auto) 49.9 % (45.0-75.0) Lymphocytes (%) (Auto) 32.1 % (20.0-45.0) Monocytes (%) (Auto) 12.3 % (1.0-10.0) H Eosinophils (%) (Auto) 4.7 % (0.0-3.0) H Basophils (%) (Auto) 0.9 % (0.0-2.0) Sodium Level 141 MMOL/L (136-145) Potassium Level 3.4 MMOL/L (3.5-5.1) L Chloride Level 107 MMOL/L (98-107) Carbon Dioxide Level 26 MMOL/L (21-32) Anion Gap 8 mmol/L (5-15) Blood Urea Nitrogen 4 mg/dL (7-18) L Creatinine 0.5 MG/DL (0.55-1.30) L Estimat Glomerular Filtration Rate > 60 mL/min (>60) Glucose Level 198 MG/DL (74-106) #H Calcium Level 8.5 MG/DL (8.5-10.1) Phosphorus Level 2.3 MG/DL (2.5-4.9) L Magnesium Level 1.6 MG/DL (1.8-2.4) L Current Medications Medications (Trade) Dose Ordered Sig/Leatha Route PRN Reason Start Time Stop Time Status Last Admin Dose Admin Chlorhexidine Gluconate (Roxana-Hex 2%) 1 applic DAILY@2000 TOPIC 10/22/18 20:00 11/21/18 19:59 10/22/18 21:08 Clonazepam (KlonoPIN) 0.5 mg BEDTIME ORAL 10/22/18 21:00 10/29/18 20:59 Dextrose 1,000 ml @ 0 mls/hr Q24H PRN IV PN interrupted or unavailable 10/22/18 11:00 11/21/18 10:59 Dextrose (Dextrose 50%) 25 ml Q30M PRN IV Hypoglycemia 10/22/18 11:00 11/21/18 10:59 Dextrose (Dextrose 50%) 50 ml Q30M PRN IV Hypoglycemia 10/22/18 11:00 11/21/18 10:59 Fat Emulsion Intravenous 216 ml/Amino Acids/ Electrolytes/ Dextrose 1,848 ml @ 76.692 mls/ hr Q24H IV 10/23/18 21:00 11/22/18 20:59 Heparin Sodium/ Sodium Chloride (Heparin 2000 units/Ns 1000ml premix) 2,000 unit ONCE PRN INJ PICC 10/22/18 09:30 10/23/18 23:59 Insulin Aspart (NovoLOG) Q6HR SUBQ 10/22/18 18:00 11/21/18 17:59 10/23/18 12:17 Lidocaine HCl (Xylocaine 1% 30ml) 30 ml ONCE PRN INJ PICC 10/22/18 09:30 10/23/18 23:59 Lorazepam (Ativan) 2 mg Q6H PRN ORAL For Anxiety 10/22/18 11:45 10/29/18 11:44 10/23/18 12:28 Morphine Sulfate (Morphine Sulfate) 0.5 mg Q4H PRN IVP Severe Pain (Pain Scale 7-10) 10/18/18 20:30 10/25/18 20:29 10/23/18 10:06 Ondansetron HCl (Zofran) 4 mg Q4H PRN IVP Nausea & Vomiting 10/18/18 20:30 11/17/18 20:29 10/20/18 10:17 Piperacillin Sod/ Tazobactam Sod 3.375 gm/Dextrose 110 ml @ 27.5 mls/hr EVERY 8 HOURS IVPB 10/20/18 15:00 10/25/18 14:59 10/23/18 05:28 Sodium 1,000 ml @ 15 mls/hr Q24H IV 10/22/18 21:00 11/21/18 20:59 10/22/18 21:09 Tahir Cervantes M.D. Oct 23, 2018 14:04
--- NOTE | 2018-10-23 15:05 | General Progress Note ---
Assessment/Plan Status: stable Assessment/Plan # Leukopenia - likely due to infection v reactive --> Continue to monitor and trend wbc for improvement --> Hep panel and HIV are both negative --> CT shows: Status post partial colon resection in the area of the splenic flexure. Severe pancolitis and pneumatosis involving a dilated preanastomotic segment of the colon (Right hemicolon to splenic flexure). Some degree of partial obstruction at the level of the anastomosis is not excluded. Postanastomotic descending and sigmoid colon is nondilated but shows wall thickening and moderate inflammation as wel # Stage I Colon cancer per patient. s/p surgery Status post partial colon resection in the area of the splenic flexure. Severe pancolitis and pneumatosis involving a dilated preanastomotic segment of the colon (Right hemicolon to splenic flexure). Some degree of partial obstruction at the level of the anastomosis is not excluded. Postanastomotic descending and sigmoid colon is nondilated but shows wall thickening and moderate inflammation as well. --> no hx of mets --> cea is 2.2 --> outpatient screening/surveillance with colo prn --> obtain path report # Urinary tract infection. ID is following, appreciate recs. --> On abx, empiric tx. --> urine culture++ # Abdominal pain. Surgery and GI are following, appreciate recs. --> Rule out obstruction. --> Continue supportive care with surgery --> consider transfer as per surgery --> IV fluid hydration, pain management, and NPO for now --> may need tpn --> refusing transfer to [facility] # Nausea and vomiting, suspect due to the above. --> Continue supportive care with antinausea medicine and hydration as needed --> ronnie gi and surg recs GREATLY APPRECIATE CONSULTATION. Subjective Date patient seen: Oct 23, 2018 Allergies: Coded Allergies: No Known Allergies (Unverified , 10/18/18) All Systems: reviewed and negative except above Subjective Pt awake and alert. Pt refused insulin this morning. [facility]. No sob. Objective Last 24 Hour Vital Signs Date Time Temp Pulse Resp B/P (MAP) Pulse Ox O2 Delivery O2 Flow Rate FiO2 10/23/18 12:00 97.7 102 17 113/75 (88) 97 10/23/18 10:36 97.7 10/23/18 08:03 Room Air 10/23/18 08:00 97.7 98 19 114/60 (78) 96 10/23/18 04:00 98.2 98 20 129/78 (95) 96 10/23/18 00:00 98.9 98 18 124/73 (90) 95 10/22/18 21:00 Room Air 10/22/18 20:00 98.7 93 18 148/71 (96) 98 10/22/18 16:00 97.7 93 18 118/55 (76) 95 Intake and Output 10/22/18 10/23/18 19:00 07:00 Intake Total 1200 ml 875.228 ml Balance 1200 ml 875.228 ml IV Total 1200 ml 875.228 ml # Voids 6 5 Laboratory Tests 10/23/18 04:06: White Blood Count 3.6L, Red Blood Count 4.66, Hemoglobin 12.3, Hematocrit 36.3L , Mean Corpuscular Volume 78L, Mean Corpuscular Hemoglobin 26.4L, Mean Corpuscular Hemoglobin Concent 33.9, Red Cell Distribution Width 12.0, Platelet Count 246, Mean Platelet Volume 6.5, Neutrophils (%) (Auto) 49.9, Lymphocytes (% ) (Auto) 32.1, Monocytes (%) (Auto) 12.3H, Eosinophils (%) (Auto) 4.7H, Basophils (%) (Auto) 0.9, Sodium Level 141, Potassium Level 3.4L, Chloride Level 107, Carbon Dioxide Level 26, Anion Gap 8, Blood Urea Nitrogen 4L, Creatinine 0.5L, Estimat Glomerular Filtration Rate > 60, Glucose Level 198#H, Calcium Level 8.5, Phosphorus Level 2.3L, Magnesium Level 1.6L, Thyroid Stimulating Hormone (TSH) 0.682 Height (Feet): 5 Height (Inches): 3.00 Weight (Pounds): 163 Jose Barreto MD Oct 23, 2018 15:05
--- NOTE | 2018-10-23 15:45 | Cardiology Report ---
APPROVED REPORT EXAM: Two-dimensional and M-mode echocardiogram with Doppler and color Doppler. INDICATION Tachycardia M-Mode DIMENSIONS IVSd1.1 (0.7-1.1cm)Left Atrium (MM)3.8 (1.6-4.0cm) LVDd5.5 (3.5-5.6cm)Aortic Root3.7 (2.0-3.7cm) PWd1.1 (0.7-1.1cm)Aortic Cusp Exc.1.9 (1.5-2.0cm) LVDs4.1 (2.5-4.0cm) PWs1.3 cm Normal left ventricular chamber size, hyperdynamic systolic function and wall motion. Left ventricular ejection fraction estimated to be 70-75 %. Moderate left ventricular hypertrophy by 2-D. No evidence of pericardial effusion. Mild left atrial enlargement. Right cardiac chamber sizes are within normal limits. Focal aortic valve sclerosis with adequate cusp excursion. Thickened mitral valve leaflets with normal excursion. Mitral annulus and aortic root calcification. Pulmonic valve not well visualized. Normal tricuspid valve structure. IVC at normal size with physiologic collapse. A color flow and spectral Doppler study was performed and revealed: Mild aortic regurgitation. Trace mitral regurgitation. Mitral diastolic velocities suggest reduced left ventricular relaxation c/w mild LV diastolic dysfunction (Grade I). Trace tricuspid regurgitation. Tricuspid systolic velocities suggests peak right ventricular systolic pressure of 18 mmHg.
[2018-10-23 16:00] VITALS: BP 115/77
[2018-10-23] MEDS ORDERED: DiphenhydrAMINE 50mg/ml Inj IVP SCH (18:30)
[2018-10-23] MEDS ORDERED: LORazepam Inj 2mg/ml 1ml IV SCH (18:30)
[2018-10-23 20:00] VITALS: BP 136/88
[2018-10-23] MEDS: Dyna-Hex 2% Top Sol 2oz TOPIC SCH (20:28)
[2018-10-23] MEDS: 1/2NS w/KCl 20mEq 1000ml 1,000 ML IV SCH (20:37)
[2018-10-23] MEDS: TPN IV SCH (20:38)
[2018-10-23] MEDS: FAT EMULSION 20% IV SCH (20:38)
[2018-10-23] MEDS: clonazePAM 0.5mg tab ORAL SCH (22:12)
--- NOTE | 2018-10-23 22:30 | Progress Note ---
DATE: 10/23/2018 SUBJECTIVE: This is an elderly female ____ tachycardia. Her heart rate was about 130s to 135s. The patient has no pain. She was given a pain medication early morphine 0.5 mg. She wants to sleep. OBJECTIVE: VITAL SIGNS: Her blood pressure is 113/75, heart rate is 130 to 140, sinus tachycardia, respirations 17, and temperature is 97.7. HEENT: AT/NC. EOMI. PERRLA. NECK: Supple. No JVD. CHEST: Bilaterally clear. CARDIOVASCULAR: Regular rhythm. ABDOMEN: Soft. Positive bowel sounds. Mild diffuse tenderness. EXTREMITIES: CCE. NEUROLOGIC: No focal deficit. LABORATORY DATA: White counts 3.6, hemoglobin 12, and hematocrit 36. Chemistry panel, sodium 141, potassium 3.4, BUN 4, creatinine 0.5, and glucose 198. ASSESSMENT: 1. Acute abdominal pain. 2. Colon cancer. 3. Status post laparotomy. 4. Anxiety. 5. Hypokalemia, was replaced. 6. Tachycardia. PLAN: The patient had EKG showing ____ sinus rhythm, rate of 130-140. The patient is asymptomatic. Cardiology consult was obtained. The patient was transferred to telemetry bed. We will monitor her heart rate and continue NPO, TPN. Continue antibiotics. Discussed with charge nurse. Continue morphine and Zofran as needed. Mark Meehan M.D. DR: RIKKI JOB#: [id number] CC:
--- NOTE | 2018-10-23 22:45 | Consultation ---
DATE OF CONSULTATION: 10/23/2018 CONSULTING PHYSICIAN: Abe Armendariz M.D. REFERRING PHYSICIAN: Bertin Meehan M.D. REASON FOR CONSULTATION: Tachycardia. HISTORY OF PRESENT ILLNESS: The patient is a 68-year-old lady, who underwent colon surgery for her colon mass, on September 29, 2018 at another facility, who presented to [facility] for increasing abdominal pain, nausea, and vomiting for 5 days. The patient had colon surgery on September 29, 2018 at [facility] laparoscopically with colon resection. In the emergency room, the patient presented with increased abdominal pain. The patient was evaluated by Infectious Disease as well as General Surgery. Today, the patient noted to be tachycardic with heart rate in the 130s and a Cardiology consultation was requested for further evaluation. REVIEW OF SYSTEMS: Review of systems was negative other than what was mentioned in the history of present illness. PAST MEDICAL HISTORY: As mentioned above. FAMILY HISTORY: Noncontributory. SOCIAL HISTORY: Does not smoke or drink alcohol. PHYSICAL EXAMINATION: VITAL SIGNS: Show blood pressure of 113/75, pulse 130, respirations 18, and she is afebrile. HEAD AND NECK: Showed no JVD. LUNGS: Clear. CARDIOVASCULAR: Shows tachycardic. S1 and S2 with no gallop or murmur. ABDOMEN: Soft. Status post laparoscopic surgery. EXTREMITIES: No pitting edema. LABORATORY DATA: White count 3.7, hematocrit 12.3, hematocrit 36.3, and platelet count of 246,000. Sodium is 141, potassium 3.4, BUN of 49.5, and glucose of 198. The INR is 1.1. ASSESSMENT AND PLAN: 1. Tachycardia. We will get a 12-lead EKG as the patient currently is on non-monitored bed. The patient had prior EKG on October 18, 2018, showed normal sinus rhythm with left axis deviation. We will also get an echocardiogram to evaluate for ejection fraction and wall motion abnormality and get the thyroid function test. 2. Abdominal pain. The patient is still NPO, on IV fluids. CT findings were reviewed by Dr. Flores. 3. Anemia. Thank you very much for allowing me to participate in the care of this patient. Please do not hesitate to contact me for any questions regarding my evaluation. Abe Armendariz M.D. DR: CLARENCE JOB#: [id number] CC:
--- NOTE | 2018-10-23 23:33 | General Progress Note ---
Assessment/Plan Status: stable, progressing Assessment/Plan anxiety d/o ativan prn the pt was provided with st/ro klonopin .5mg qhs the pt has capacity to make decisions/ Subjective Neurologic/Psychiatric: Reports: anxiety Allergies: Coded Allergies: No Known Allergies (Unverified , 10/18/18) Subjective the pt was severely agitated and received two shots. Objective Last 24 Hour Vital Signs Date Time Temp Pulse Resp B/P (MAP) Pulse Ox O2 Delivery O2 Flow Rate FiO2 10/23/18 21:13 134 10/23/18 20:00 98.0 104 20 136/88 (104) 95 10/23/18 16:00 98.0 132 18 115/77 (90) 95 10/23/18 12:00 97.7 102 17 113/75 (88) 97 10/23/18 10:36 97.7 10/23/18 08:03 Room Air 10/23/18 08:00 97.7 98 19 114/60 (78) 96 10/23/18 04:00 98.2 98 20 129/78 (95) 96 10/23/18 00:00 98.9 98 18 124/73 (90) 95 Intake and Output 10/22/18 10/23/18 19:00 07:00 Intake Total 1200 ml 875.228 ml Balance 1200 ml 875.228 ml IV Total 1200 ml 875.228 ml # Voids 6 5 Laboratory Tests 10/23/18 04:06: White Blood Count 3.6L, Red Blood Count 4.66, Hemoglobin 12.3, Hematocrit 36.3L , Mean Corpuscular Volume 78L, Mean Corpuscular Hemoglobin 26.4L, Mean Corpuscular Hemoglobin Concent 33.9, Red Cell Distribution Width 12.0, Platelet Count 246, Mean Platelet Volume 6.5, Neutrophils (%) (Auto) 49.9, Lymphocytes (% ) (Auto) 32.1, Monocytes (%) (Auto) 12.3H, Eosinophils (%) (Auto) 4.7H, Basophils (%) (Auto) 0.9, Sodium Level 141, Potassium Level 3.4L, Chloride Level 107, Carbon Dioxide Level 26, Anion Gap 8, Blood Urea Nitrogen 4L, Creatinine 0.5L, Estimat Glomerular Filtration Rate > 60, Glucose Level 198#H, Calcium Level 8.5, Phosphorus Level 2.3L, Magnesium Level 1.6L, Thyroid Stimulating Hormone (TSH) 0.682 10/23/18 14:30: Troponin I 0.023 10/23/18 19:15: Troponin I 0.019 Height (Feet): 5 Height (Inches): 3.00 Weight (Pounds): 163 General Appearance: alert, confused, agitated Anna Camacho MD Oct 23, 2018 23:33
[2018-10-23] MEDS ORDERED: LORazepam Inj 2mg/ml 1ml IV PRN (23:45)
[2018-10-24] VITALS: BP 133/79
[2018-10-24 03:16] LABS: BASOPHILS % (AUTO) 1.1 % (0.0-2.0); EOSINOPHILS % (AUTO) 2.2 % (0.0-3.0); HEMATOCRIT 41.5 % (37.0-47.0); HEMOGLOBIN 13.9 G/DL (12.0-16.0); MEAN CORPUSCULAR VOLUME 77 FL (80-99); NEUTROPHILS % (AUTO) 56.8 % (45.0-75.0); PLATELET COUNT 291 K/UL (150-450); RED BLOOD COUNT 5.37 M/UL (4.20-5.40); WHITE BLOOD COUNT 5.7 K/UL (4.8-10.8)
[2018-10-24 03:29] LABS: ANION GAP 11 mmol/L (5-15); BLOOD UREA NITROGEN 7 mg/dL (7-18); CALCIUM 9.1 MG/DL (8.5-10.1); CARBON DIOXIDE 24 MMOL/L (21-32); CHLORIDE 108 MMOL/L (98-107); CREATININE 0.6 MG/DL (0.55-1.30); PHOSPHORUS 2.3 MG/DL (2.5-4.9); POTASSIUM 2.9 MMOL/L (3.5-5.1); SODIUM 143 MMOL/L (136-145)
[2018-10-24 04:00] VITALS: BP 164/86
[2018-10-24] MEDS: Piperacillin/Tazobactam 3.375 GM in D5W 110 ML IVPB SCH ×3 (06:00→22:02)
[2018-10-24] MEDS: NovoLOG Insulin Flexpen SUBQ SCH ×4 (06:00→23:23)
[2018-10-24] MEDS: LORazepam 1mg tab ORAL PRN (07:22)
[2018-10-24 08:00] VITALS: BP 138/78
[2018-10-24] MEDS ORDERED: LORazepam Inj 2mg/ml 1ml IM PRN (10:15)
[2018-10-24] MEDS ORDERED: DiphenhydrAMINE 50mg/ml Inj IM PRN (10:15)
--- NOTE | 2018-10-24 10:20 | General Surgery Progress Note ---
General Surgery-Progress Note Subjective Additional Comments tachy. transferred to tele. pain same. resting comfortable. afebrile. no n/ v/f/c. Objective Last 24 Hour Vital Signs Date Time Temp Pulse Resp B/P (MAP) Pulse Ox O2 Delivery O2 Flow Rate FiO2 10/24/18 08:00 98.1 129 20 138/78 (98) 96 10/24/18 04:00 98.2 145 19 164/86 (112) 97 10/24/18 00:00 98.1 132 18 133/79 (97) 96 10/23/18 21:13 134 10/23/18 21:00 Room Air 10/23/18 20:00 98.0 104 20 136/88 (104) 95 10/23/18 16:00 98.0 132 18 115/77 (90) 95 10/23/18 12:00 97.7 102 17 113/75 (88) 97 10/23/18 10:36 97.7 I&O Intake and Output 10/23/18 10/24/18 18:59 06:59 Intake Total 105 ml Balance 105 ml IV Total 105 ml # Voids 4 2 # Bowel Movements 1 Wound: clean, dry, intact Drains: none Cardiovascular: RSR Respiratory: clear Abdomen: soft, distended, tenderness, present bowel sounds Extremities: no tenderness, no cyanosis Laboratory Tests Test 10/23/18 14:30 10/23/18 19:15 10/24/18 03:09 Troponin I 0.023 ng/mL (0.000-0.056) 0.019 ng/mL (0.000-0.056) 0.020 ng/mL (0.000-0.056) White Blood Count 5.7 K/UL (4.8-10.8) # Red Blood Count 5.37 M/UL (4.20-5.40) Hemoglobin 13.9 G/DL (12.0-16.0) Hematocrit 41.5 % (37.0-47.0) Mean Corpuscular Volume 77 FL (80-99) L Mean Corpuscular Hemoglobin 25.9 PG (27.0-31.0) L Mean Corpuscular Hemoglobin Concent 33.5 G/DL (32.0-36.0) Red Cell Distribution Width 12.0 % (11.6-14.8) Platelet Count 291 K/UL (150-450) Mean Platelet Volume 6.5 FL (6.5-10.1) Neutrophils (%) (Auto) 56.8 % (45.0-75.0) Lymphocytes (%) (Auto) 29.0 % (20.0-45.0) Monocytes (%) (Auto) 11.0 % (1.0-10.0) H Eosinophils (%) (Auto) 2.2 % (0.0-3.0) Basophils (%) (Auto) 1.1 % (0.0-2.0) Sodium Level 143 MMOL/L (136-145) Potassium Level 2.9 MMOL/L (3.5-5.1) L Chloride Level 108 MMOL/L (98-107) H Carbon Dioxide Level 24 MMOL/L (21-32) Anion Gap 11 mmol/L (5-15) Blood Urea Nitrogen 7 mg/dL (7-18) Creatinine 0.6 MG/DL (0.55-1.30) Estimat Glomerular Filtration Rate > 60 mL/min (>60) Glucose Level 184 MG/DL (74-106) H Calcium Level 9.1 MG/DL (8.5-10.1) Phosphorus Level 2.3 MG/DL (2.5-4.9) L Magnesium Level 1.6 MG/DL (1.8-2.4) L Pro-B-Type Natriuretic Peptide 165 pg/mL (0-125) H Plan Problems: (1) Abdominal pain Assessment & Plan: abdominal pain n/v resolved labs noted. abd soft, distention, tender/guarding but no peritonitis. surgical wounds c/d/i CT noted. very concerning. CT findings do not correlate with clinical exam as she has been afebrile without peritonitis. now low grade fevers. discussed findings with her primary Surgeon from [facility] Likely infectious colitis as clinically does not seem ischemic. When discussing with primary surgeon he states he would be okay to have her transferred to [facility] for continued care post op. I anticipate with severity of colitis, bowel edema, pneumatosis this will take some time to recover prior to resuming diet. KUB noted labs noted NPO IV fluids IV abx c diff PICC/TPN Plan to continue current care for a few more days. Will then repeat CT scan Friday -will follow with recs. thank you José Miguel Flores Oct 24, 2018 10:20
--- NOTE | 2018-10-24 10:44 | Consultation ---
Consult Note Consult Note Asked to eval by Dr Meehan for electrolytes imbalance HISTORY OF PRESENT ILLNESS: The patient is a 68-year-old female with no significant past medical history except colon mass, status post colon surgery done on 09/29/2018 presented to [facility] emergency room for progressive abdominal pain, nausea, and vomiting for the last 5 days. The patient had a colonoscopy in July, which showed polyps and possibly hemorrhoids as per her report. So, she was scheduled for colon surgery on 09/29/2018, which she had it done at [facility] laparoscopically with colon resection. The patient developed abdominal pain, which has been progressive right after her surgery for the last 3 weeks. She developed also nausea and vomiting, which has been constant. The patient unable to tolerate any oral intake. So, she was sent to the emergency room for evaluation. In the ED, the patient had a temperature of 98.1 with a pulse of 84. Chest x-ray did not show any acute infiltration. The patient had an urinalysis, which showed evidence of infection. So, Infectious Disease consultation was requested for antibiotics treatment and further management. PAST MEDICAL HISTORY: Significant for colon polyps, hemorrhoids, status post colon surgery. PAST SURGICAL HISTORY: She had colon surgery on 09/29/2018 for possible colon tumor. SOCIAL HISTORY: The patient originally from [facility]. Denied using any drugs, tobacco, or alcohol. She lives at home with family. currently patient acutely encephalopathic Assessment/Plan Acute encephalopathy Electrolyte imbalance while on TPN ( Low K and low Phos and low mag) h/o Abdominal surgery Weight loss Pneumatosis intestinalis of large intestine UTI (urinary tract infection) Abdominal pain Tachycardia Plan: K Phos and Mag supplement Monitor lytes Per GI and Surgery on Zosyn for UTI Familia Balderrama MD Oct 24, 2018 10:44
[2018-10-24] MEDS ORDERED: Potassium Phosphate 30 MM in NS 275 ML IV SCH (12:00)
[2018-10-24 12:02] VITALS: BP 133/78
[2018-10-24] MEDS: Pantoprazole Inj IVP SCH ×2 (13:13→20:30)
[2018-10-24 16:00] VITALS: BP 116/78
--- NOTE | 2018-10-24 16:19 | General Progress Note ---
Assessment/Plan Assessment/Plan Assessment/Plan Problems: (1) H/O abdominal surgery ICD Codes: Z98.890 - Other specified postprocedural states SNOMED: 521598477, 740892037 (2) Weight loss ICD Codes: R63.4 - Abnormal weight loss SNOMED: 57809920, 181624678 (3) Dehydration ICD Codes: E86.0 - Dehydration SNOMED: 06618299 (4) Abdominal pain ICD Codes: R10.9 - Unspecified abdominal pain SNOMED: 08009095 Qualifiers: Qualified Codes: R10.84 - Generalized abdominal pain (5) Nausea & vomiting ICD Codes: R11.2 - Nausea with vomiting, unspecified SNOMED: 55892205 Qualifiers: Qualified Codes: R11.2 - Nausea with vomiting, unspecified Status: progressing Assessment/Plan CT AP reviewed >> - Status post partial colon resection in the area of the splenic flexure. - Severe pancolitis and pneumatosis involving a dilated preanastomotic segment of the colon(Right hemicolon to splenic flexure). - Some degree of partial obstruction at the level of the anastomosis is not excluded. - Postanastomotic descending and sigmoid colon is nondilated but shows wall thickening and moderate inflammation as well. - No abscess or evidence of perforation. - Mild to moderate free fluid. history of recent abdominal surgery N/V has resolved at this time fu surgical recs TPN bowel rest pain mgmt zofran prn IV hydration NPO fu labs Subjective Allergies: Coded Allergies: No Known Allergies (Unverified , 10/18/18) Subjective above noted d/w RN agitated - received ativan now calm Objective Last 24 Hour Vital Signs Date Time Temp Pulse Resp B/P (MAP) Pulse Ox O2 Delivery O2 Flow Rate FiO2 10/24/18 12:02 97.2 141 21 133/78 (96) 96 10/24/18 09:00 Room Air 10/24/18 08:00 98.1 129 20 138/78 (98) 96 10/24/18 04:00 98.2 145 19 164/86 (112) 97 10/24/18 00:00 98.1 132 18 133/79 (97) 96 10/23/18 21:13 134 10/23/18 21:00 Room Air 10/23/18 20:00 98.0 104 20 136/88 (104) 95 Intake and Output 10/23/18 10/24/18 19:00 07:00 Intake Total 105 ml Balance 105 ml IV Total 105 ml # Voids 4 2 # Bowel Movements 1 Laboratory Tests 10/23/18 19:15: Troponin I 0.019 10/24/18 03:09: Troponin I 0.020, White Blood Count 5.7#, Red Blood Count 5.37, Hemoglobin 13.9 , Hematocrit 41.5, Mean Corpuscular Volume 77L, Mean Corpuscular Hemoglobin 25.9L, Mean Corpuscular Hemoglobin Concent 33.5, Red Cell Distribution Width 12.0, Platelet Count 291, Mean Platelet Volume 6.5, Neutrophils (%) (Auto) 56.8 , Lymphocytes (%) (Auto) 29.0, Monocytes (%) (Auto) 11.0H, Eosinophils (%) (Auto ) 2.2, Basophils (%) (Auto) 1.1, Sodium Level 143, Potassium Level 2.9L, Chloride Level 108H, Carbon Dioxide Level 24, Anion Gap 11, Blood Urea Nitrogen 7, Creatinine 0.6, Estimat Glomerular Filtration Rate > 60, Glucose Level 184H, Calcium Level 9.1, Phosphorus Level 2.3L, Magnesium Level 1.6L, C-Reactive Protein, Quantitative 4.3H, Pro-B-Type Natriuretic Peptide 165H Height (Feet): 5 Height (Inches): 3.00 Weight (Pounds): 163 Objective WDWN NCAT supple CTA RRR abd soft ND NT, (+) old scar no edema OBS, restrained Jackie Tobar MD Oct 24, 2018 16:19
--- NOTE | 2018-10-24 17:21 | Infectious Diseases Prog Note ---
Assessment/Plan Problems: (1) Pneumatosis intestinalis of large intestine Assessment & Plan: at the anastomosis site, suspect ischemia related to recent surgery or infection with bacterial overgrowth , continue wide spectrum antibiotics coverage with zosyn , continue conservative management, with bowel rest and hydration . may need surgical exploration if no improvement with conservative management , repeat CT for follow up (2) UTI (urinary tract infection) Assessment & Plan: with small colonies of VRE and pseudomonas aeruginosa , most likely contaminant , already on zosyn (3) Abdominal pain Assessment & Plan: due to the above, continue pain management as needed (4) Tachycardia Assessment & Plan: unclear etiology , await blood culture to rule out sepsis , monitor in tele , monitor cardiac enzymes , cardiology is following Subjective Constitutional: Reports: no symptoms HEENT: Reports: no symptoms Respiratory: Reports: no symptoms Breasts: Reports: no symptoms Cardiovascular: Reports: no symptoms Gastrointestinal/Abdominal: Reports: bloating, other - pain Genitourinary: Reports: no symptoms Neurologic: Reports: no symptoms Psychiatric: Reports: no symptoms Skin: Reports: no symptoms Endocrine: Reports: no symptoms Hematologic: Reports: no symptoms Musculoskeletal: Reports: no symptoms Allergies: Coded Allergies: No Known Allergies (Unverified , 10/18/18) Objective Vital Signs Last 24 Hour Vital Signs Date Time Temp Pulse Resp B/P (MAP) Pulse Ox O2 Delivery O2 Flow Rate FiO2 10/24/18 16:00 97.7 131 21 116/78 (91) 97 10/24/18 12:02 97.2 141 21 133/78 (96) 96 10/24/18 09:00 Room Air 10/24/18 08:00 98.1 129 20 138/78 (98) 96 10/24/18 04:00 98.2 145 19 164/86 (112) 97 10/24/18 00:00 98.1 132 18 133/79 (97) 96 10/23/18 21:13 134 10/23/18 21:00 Room Air 10/23/18 20:00 98.0 104 20 136/88 (104) 95 Height (Feet): 5 Height (Inches): 3.00 Weight (Pounds): 163 General Appearance: WD/WN, no acute distress HEENT: normocephalic, atraumatic, anicteric, mucous membranes moist, PERRL Respiratory/Chest: chest wall non-tender, lungs clear, normal breath sounds, no respiratory distress, no accessory muscle use Cardiovascular: normal peripheral pulses, normal rate, regular rhythm, no gallop/murmur, no JVD Abdomen: no organomegaly, no mass, no scars, hypoactive bowel sounds, distended , tender Genitourinary: normal external genitalia Extremities: no cyanosis, no clubbing Skin: no rash, no lesions, no ulcers Neurologic/Psychiatric: alert, oriented x 3, responsive, normal mood/affect Lymphatic: no neck adenopathy, no groin adenopathy Musculoskeletal: normal muscle bulk, no effusion Microbiology Date/Time Source Procedure Growth Status 10/23/18 16:30 Stool Clostridium difficile Toxin Assay - Final Complete Laboratory Tests Test 10/23/18 19:15 10/24/18 03:09 Troponin I 0.019 ng/mL (0.000-0.056) 0.020 ng/mL (0.000-0.056) White Blood Count 5.7 K/UL (4.8-10.8) # Red Blood Count 5.37 M/UL (4.20-5.40) Hemoglobin 13.9 G/DL (12.0-16.0) Hematocrit 41.5 % (37.0-47.0) Mean Corpuscular Volume 77 FL (80-99) L Mean Corpuscular Hemoglobin 25.9 PG (27.0-31.0) L Mean Corpuscular Hemoglobin Concent 33.5 G/DL (32.0-36.0) Red Cell Distribution Width 12.0 % (11.6-14.8) Platelet Count 291 K/UL (150-450) Mean Platelet Volume 6.5 FL (6.5-10.1) Neutrophils (%) (Auto) 56.8 % (45.0-75.0) Lymphocytes (%) (Auto) 29.0 % (20.0-45.0) Monocytes (%) (Auto) 11.0 % (1.0-10.0) H Eosinophils (%) (Auto) 2.2 % (0.0-3.0) Basophils (%) (Auto) 1.1 % (0.0-2.0) Sodium Level 143 MMOL/L (136-145) Potassium Level 2.9 MMOL/L (3.5-5.1) L Chloride Level 108 MMOL/L (98-107) H Carbon Dioxide Level 24 MMOL/L (21-32) Anion Gap 11 mmol/L (5-15) Blood Urea Nitrogen 7 mg/dL (7-18) Creatinine 0.6 MG/DL (0.55-1.30) Estimat Glomerular Filtration Rate > 60 mL/min (>60) Glucose Level 184 MG/DL (74-106) H Calcium Level 9.1 MG/DL (8.5-10.1) Phosphorus Level 2.3 MG/DL (2.5-4.9) L Magnesium Level 1.6 MG/DL (1.8-2.4) L C-Reactive Protein, Quantitative 4.3 mg/dL (0.00-0.90) H Pro-B-Type Natriuretic Peptide 165 pg/mL (0-125) H Current Medications Medications (Trade) Dose Ordered Sig/Leatha Route PRN Reason Start Time Stop Time Status Last Admin Dose Admin Chlorhexidine Gluconate (Roxana-Hex 2%) 1 applic DAILY@1999 TOPIC 10/22/18 20:00 11/21/18 19:59 10/23/18 20:28 Clonazepam (KlonoPIN) 0.5 mg BEDTIME ORAL 10/22/18 21:00 10/29/18 20:59 10/23/18 22:12 Dextrose 1,000 ml @ 0 mls/hr Q24H PRN IV PN interrupted or unavailable 10/22/18 11:00 11/21/18 10:59 Dextrose (Dextrose 50%) 25 ml Q30M PRN IV Hypoglycemia 10/22/18 11:00 11/21/18 10:59 Dextrose (Dextrose 50%) 50 ml Q30M PRN IV Hypoglycemia 10/22/18 11:00 11/21/18 10:59 Diphenhydramine HCl (Benadryl) 50 mg Q6H PRN IM For Anxiety 10/24/18 10:15 11/23/18 10:14 10/24/18 11:05 Fat Emulsion Intravenous 216 ml/Amino Acids/ Electrolytes/ Dextrose 1,848 ml @ 76.692 mls/ hr Q24H IV 10/23/18 21:00 11/22/18 20:59 10/23/18 20:38 Insulin Aspart (NovoLOG) Q6HR SUBQ 10/22/18 18:00 11/21/18 17:59 10/23/18 12:17 Lorazepam (Ativan 2mg/ml 1ml) 2 mg Q4H PRN IM For Anxiety 10/24/18 10:15 10/31/18 10:14 10/24/18 11:05 Lorazepam (Ativan) 2 mg Q6H PRN ORAL For Anxiety 10/22/18 11:45 10/29/18 11:44 10/24/18 07:22 Morphine Sulfate (Morphine Sulfate) 0.5 mg Q4H PRN IVP Severe Pain (Pain Scale 7-10) 10/18/18 20:30 10/25/18 20:29 10/23/18 10:06 Ondansetron HCl (Zofran) 4 mg Q4H PRN IVP Nausea & Vomiting 10/18/18 20:30 11/17/18 20:29 10/20/18 10:17 Pantoprazole (Protonix) 40 mg EVERY 12 HOURS IVP 10/24/18 10:45 11/23/18 10:44 10/24/18 13:13 Piperacillin Sod/ Tazobactam Sod 3.375 gm/Dextrose 110 ml @ 27.5 mls/hr EVERY 8 HOURS IVPB 10/20/18 15:00 10/25/18 14:59 10/24/18 15:46 Potassium Phosphate 30 mm/ Sodium Chloride 285 ml @ 47.5 mls/hr ONCE IV 10/24/18 12:00 10/24/18 18:00 10/24/18 14:19 Tahir Cervantes M.D. Oct 24, 2018 17:21
[2018-10-24 20:00] VITALS: BP 124/81
[2018-10-24] MEDS: Dyna-Hex 2% Top Sol 2oz TOPIC SCH (20:00)
[2018-10-24] MEDS: TPN IV SCH (20:21)
[2018-10-24] MEDS: FAT EMULSION 20% IV SCH (20:21)
[2018-10-24] MEDS: clonazePAM 0.5mg tab ORAL SCH (20:30)
--- NOTE | 2018-10-24 20:45 | Progress Note ---
DATE: 10/24/2018 SUBJECTIVE: This is an elderly lady, has been confused and agitated. She tried to get up last night and about to fall and tumbled, but she did not hit her head. She was found on the floor. The patient is confused and agitated. She pulled out all the IV lines last night and is still slightly confused, but opened her eyes. She was given Ativan two times, so psych consult was obtained. The patient is in need of PICC line or central line because she does not have any access for TPN and medical treatment. PHYSICAL EXAMINATION: VITAL SIGNS: The patient's current blood pressure 164/86, pulse 145, respirations 19, and temp is 98.2. SKIN: Good skin turgor. HEENT: . NECK: Supple. CHEST: Bilaterally clear. CARDIOVASCULAR: Regular rhythm. No gallop. No murmur. ABDOMEN: Soft. Mild tenderness. EXTREMITIES: CCE. NEUROLOGIC: Confusion, but moving in the bed. GENITOURINARY: Deferred. LABORATORY EXAMINATION: White count 5.7, hemoglobin 14, hematocrit 42, and platelets are 291,000. Chemistry panel, potassium is 2.9, sodium 143, BUN 7, creatinine 0.6, glucose 184, troponin 0.020, and BNP 165. ASSESSMENT: 1. Altered mental status. 2. About to fall. 3. Sinus tachycardia. 4. Colon cancer. 5. Encephalopathy. 6. Hypokalemia. PLAN: We will replace the potassium. We will give her p.o. meanwhile and try to put IV line access. Consider Nephrology consult and check BMP tomorrow. For tachycardia, cardiology on case. EKG, she is in sinus tachycardia and still altered mental status. Consider psych consult and continue Ativan p.r.n. and monitor her, and probably the patient may need restraints for IV access and treatment. Mark Meehan M.D. DR: WILLAM JOB#: [id number] CC:
[2018-10-24] MEDS ORDERED: 1/2NS w/KCl 20mEq 1000ml 1,000 ML IV SCH (21:00)
[2018-10-25] VITALS: BP 120/79
[2018-10-25 04:00] VITALS: BP 122/79
[2018-10-25] MEDS: NovoLOG Insulin Flexpen SUBQ SCH ×3 (05:16→18:19)
[2018-10-25] MEDS: Piperacillin/Tazobactam 3.375 GM in D5W 110 ML IVPB SCH ×3 (05:21→21:45)
[2018-10-25 07:50] LABS: BASOPHILS % (AUTO) 0.8 % (0.0-2.0); EOSINOPHILS % (AUTO) 4.8 % (0.0-3.0); HEMATOCRIT 38.9 % (37.0-47.0); HEMOGLOBIN 13.2 G/DL (12.0-16.0); LYMPHOCYTES % (AUTO) 36.1 % (20.0-45.0); MEAN CORPUSCULAR VOLUME 78 FL (80-99); MONOCYTES % (AUTO) 11.1 % (1.0-10.0); NEUTROPHILS % (AUTO) 47.2 % (45.0-75.0); PLATELET COUNT 223 K/UL (150-450); RED BLOOD COUNT 5.01 M/UL (4.20-5.40); RED CELL DISTRIBUTION WIDTH 12.4 % (11.6-14.8); WHITE BLOOD COUNT 4.7 K/UL (4.8-10.8)
[2018-10-25 08:00] VITALS: BP 115/69
[2018-10-25] MEDS: Pantoprazole Inj IVP SCH ×2 (08:03→21:44)
[2018-10-25 08:24] LABS: ALANINE AMINOTRANSFERASE 14 U/L (12-78); ALBUMIN 2.8 G/DL (3.4-5.0); ALBUMIN/GLOBULIN RATIO 0.7 (1.0-2.7); ALKALINE PHOSPHATASE 75 U/L (46-116); ANION GAP 7 mmol/L (5-15); ASPARTATE AMINO TRANSFERASE 20 U/L (15-37); BILIRUBIN,TOTAL 1.7 MG/DL (0.2-1.0); BLOOD UREA NITROGEN 8 mg/dL (7-18); CALCIUM 8.7 MG/DL (8.5-10.1); CARBON DIOXIDE 29 MMOL/L (21-32); CHLORIDE 108 MMOL/L (98-107); CREATININE 0.7 MG/DL (0.55-1.30); SODIUM 144 MMOL/L (136-145)
[2018-10-25 08:25] LABS: BILIRUBIN,DIRECT 0.3 MG/DL (0.0-0.3)
[2018-10-25 08:35] LABS: % IRON SATURATION 18 % (15-50); IRON 30 ug/dL (50-175); TOTAL IRON BINDING CAPACITY 164 ug/dL (250-450)
[2018-10-25 08:38] LABS: GAMMA GLUTAMYL TRANSPEPTIDASE 12 U/L (5-85); PHOSPHORUS 3.4 MG/DL (2.5-4.9)
[2018-10-25 08:50] LABS: CHOLESTEROL 162 MG/DL (< 200); FERRITIN 242 NG/ML (8-388); HDL CHOLESTEROL 34 MG/DL (40-60); TRIGLYCERIDES 169 MG/DL (30-150)
--- NOTE | 2018-10-25 11:19 | General Progress Note ---
Assessment/Plan Assessment/Plan # Stage I colon cancer per patient. s/p surgery Status post partial colon resection in the area of the splenic flexure. Severe pancolitis and pneumatosis involving a dilated preanastomotic segment of the colon (Right hemicolon to splenic flexure). Some degree of partial obstruction at the level of the anastomosis is not excluded. Postanastomotic descending and sigmoid colon is nondilated but shows wall thickening and moderate inflammation as well. --> no hx of mets --> cea is 2.2 --> outpatient screening/surveillance with colo prn --> obtain path report (rn aware of request) # Leukopenia - likely due to infection v reactive. Status post partial colon resection in the area of the splenic flexure. Severe pancolitis and pneumatosis involving a dilated preanastomotic segment of the colon (Right hemicolon to splenic flexure). Some degree of partial obstruction at the level of the anastomosis is not excluded. Postanastomotic descending and sigmoid colon is nondilated but shows wall thickening and moderate inflammation as wel --> Continue to monitor and trend wbc for improvement --> Hep panel and HIV are both negative # Urinary tract infection. ID is following, appreciate recs. --> On abx, empiric tx. --> urine culture++ # Abdominal pain. Surgery and GI are following, appreciate recs. --> Rule out obstruction. --> Continue supportive care with surgery --> consider transfer as per surgery --> IV fluid hydration, pain management, and NPO for now --> may need tpn --> refusing transfer to [facility] # Nausea and vomiting, suspect due to the above. --> Continue supportive care with antinausea medicine and hydration as needed --> ronnie gi and surg recs GREATLY APPRECIATE CONSULTATION. Subjective Constitutional: Denies: no symptoms, chills, diaphoresis, fever, malaise, weakness, other HEENT: Denies: no symptoms, eye pain, blurred vision, tearing, double vision, ear pain, ear discharge, nose pain, nose congestion, throat pain, throat swelling, mouth pain, mouth swelling, other Cardiovascular: Denies: no symptoms, chest pain, edema, irregular heart rate, lightheadedness, palpitations, syncope, other Respiratory: Denies: no symptoms, cough, orthopnea, shortness of breath, SOB with excertion, SOB at rest, sputum, stridor, wheezing, other Gastrointestinal/Abdominal: Denies: no symptoms, abdomen distended, abdominal pain, black stools, tarry stools, blood in stool, constipated, diarrhea, difficulty swallowing, nausea, poor appetite, poor fluid intake, rectal bleeding , vomiting, other Neurologic/Psychiatric: Denies: no symptoms, anxiety, depressed, emotional problems, headache, numbness, paresthesia, pre-existing deficit, seizure, tingling, tremors, weakness, other Hematologic/Lymphatic: Denies: no symptoms, anemia, easy bleeding, easy bruising, other Allergies: Coded Allergies: No Known Allergies (Unverified , 10/18/18) Subjective Pt awake and alert. On Fiteeza, no events o/n Objective Last 24 Hour Vital Signs Date Time Temp Pulse Resp B/P (MAP) Pulse Ox O2 Delivery O2 Flow Rate FiO2 10/25/18 08:00 98.2 125 18 115/69 (84) 93 10/25/18 08:00 Room Air 10/25/18 07:46 129 10/25/18 04:00 121 10/25/18 04:00 98.2 119 19 122/79 (93) 96 10/25/18 00:00 116 10/25/18 00:00 98.3 120 20 120/79 (93) 94 10/24/18 21:00 Room Air 10/24/18 20:00 98.4 120 19 124/81 (95) 96 10/24/18 20:00 106 10/24/18 16:00 132 10/24/18 16:00 97.7 131 21 116/78 (91) 97 10/24/18 12:02 97.2 141 21 133/78 (96) 96 10/24/18 12:00 138 Intake and Output 10/24/18 10/25/18 18:59 06:59 Intake Total 480 ml 137.5 ml Balance 480 ml 137.5 ml Intake Oral 480 ml IV Total 137.5 ml # Voids 2 2 Laboratory Tests 10/25/18 07:24: White Blood Count 4.7L, Red Blood Count 5.01, Hemoglobin 13.2, Hematocrit 38.9, Mean Corpuscular Volume 78L, Mean Corpuscular Hemoglobin 26.3L, Mean Corpuscular Hemoglobin Concent 33.9, Red Cell Distribution Width 12.4, Platelet Count 223, Mean Platelet Volume 6.6, Neutrophils (%) (Auto) 47.2, Lymphocytes (% ) (Auto) 36.1, Monocytes (%) (Auto) 11.1H, Eosinophils (%) (Auto) 4.8H, Basophils (%) (Auto) 0.8, Sodium Level 144, Potassium Level 3.0L, Chloride Level 108H, Carbon Dioxide Level 29, Anion Gap 7, Blood Urea Nitrogen 8, Creatinine 0.7, Estimat Glomerular Filtration Rate > 60, Glucose Level 154H, Hemoglobin A1c 7.2H, Lactic Acid Level 1.00, Uric Acid 0.8L, Calcium Level 8.7, Phosphorus Level 3.4, Magnesium Level 1.7L, Iron Level 30L, Total Iron Binding Capacity 164L, Percent Iron Saturation 18, Unsaturated Iron Binding 134, Ferritin 242, Total Bilirubin 1.7H, Direct Bilirubin 0.3, Gamma Glutamyl Transpeptidase 12, Aspartate Amino Transf (AST/SGOT) 20, Alanine Aminotransferase (ALT/SGPT) 14, Alkaline Phosphatase 75, Pro-B-Type Natriuretic Peptide 235H, Total Protein 6.7, Albumin 2.8L, Globulin 3.9, Albumin/Globulin Ratio 0.7L, Triglycerides Level 169H, Cholesterol Level 162, LDL Cholesterol 108H, HDL Cholesterol 34L, Cholesterol/HDL Ratio 4.8H, Lipase 86, Vitamin B12 Level 1670H, Folate 19.0, Thyroid Stimulating Hormone (TSH) 0.770 Height (Feet): 5 Height (Inches): 3.00 Weight (Pounds): 163 General Appearance: lethargic Neck: normal alignment Cardiovascular: regularly irregular Respiratory/Chest: normal breath sounds Abdomen: no mass Extremities: normal range of motion Edema: trace edema Neurologic: oriented x 3 Skin: warm/dry Jose Barreto MD Oct 25, 2018 11:19
[2018-10-25 12:00] VITALS: BP 138/87
--- NOTE | 2018-10-25 14:03 | General Progress Note ---
Assessment/Plan Assessment/Plan Assessment/Plan Problems: (1) H/O abdominal surgery ICD Codes: Z98.890 - Other specified postprocedural states SNOMED: 974423241, 458244413 (2) Weight loss ICD Codes: R63.4 - Abnormal weight loss SNOMED: 63814976, 155732925 (3) Dehydration ICD Codes: E86.0 - Dehydration SNOMED: 71309665 (4) Abdominal pain ICD Codes: R10.9 - Unspecified abdominal pain SNOMED: 13359475 Qualifiers: Qualified Codes: R10.84 - Generalized abdominal pain (5) Nausea & vomiting ICD Codes: R11.2 - Nausea with vomiting, unspecified SNOMED: 40871251 Qualifiers: Qualified Codes: R11.2 - Nausea with vomiting, unspecified Status: progressing Assessment/Plan CT AP reviewed >> - Status post partial colon resection in the area of the splenic flexure. - Severe pancolitis and pneumatosis involving a dilated preanastomotic segment of the colon(Right hemicolon to splenic flexure). - Some degree of partial obstruction at the level of the anastomosis is not excluded. - Postanastomotic descending and sigmoid colon is nondilated but shows wall thickening and moderate inflammation as well. - No abscess or evidence of perforation. - Mild to moderate free fluid. history of recent abdominal surgery N/V has resolved at this time fu surgical recs TPN bowel rest pain mgmt zofran prn IV hydration NPO fu labs Subjective Allergies: Coded Allergies: No Known Allergies (Unverified , 10/18/18) Subjective above noted d/w RN restrained denies abd c/o Objective Last 24 Hour Vital Signs Date Time Temp Pulse Resp B/P (MAP) Pulse Ox O2 Delivery O2 Flow Rate FiO2 10/25/18 12:00 98.5 111 20 138/87 (104) 94 10/25/18 11:37 107 10/25/18 08:00 98.2 125 18 115/69 (84) 93 10/25/18 08:00 Room Air 10/25/18 07:46 129 10/25/18 04:00 121 10/25/18 04:00 98.2 119 19 122/79 (93) 96 10/25/18 00:00 116 10/25/18 00:00 98.3 120 20 120/79 (93) 94 10/24/18 21:00 Room Air 10/24/18 20:00 98.4 120 19 124/81 (95) 96 10/24/18 20:00 106 10/24/18 16:00 132 10/24/18 16:00 97.7 131 21 116/78 (91) 97 Intake and Output 10/24/18 10/25/18 18:59 06:59 Intake Total 480 ml 137.5 ml Balance 480 ml 137.5 ml Intake Oral 480 ml IV Total 137.5 ml # Voids 2 2 Laboratory Tests 10/25/18 07:24: White Blood Count 4.7L, Red Blood Count 5.01, Hemoglobin 13.2, Hematocrit 38.9, Mean Corpuscular Volume 78L, Mean Corpuscular Hemoglobin 26.3L, Mean Corpuscular Hemoglobin Concent 33.9, Red Cell Distribution Width 12.4, Platelet Count 223, Mean Platelet Volume 6.6, Neutrophils (%) (Auto) 47.2, Lymphocytes (% ) (Auto) 36.1, Monocytes (%) (Auto) 11.1H, Eosinophils (%) (Auto) 4.8H, Basophils (%) (Auto) 0.8, Sodium Level 144, Potassium Level 3.0L, Chloride Level 108H, Carbon Dioxide Level 29, Anion Gap 7, Blood Urea Nitrogen 8, Creatinine 0.7, Estimat Glomerular Filtration Rate > 60, Glucose Level 154H, Hemoglobin A1c 7.2H, Lactic Acid Level 1.00, Uric Acid 0.8L, Calcium Level 8.7, Phosphorus Level 3.4, Magnesium Level 1.7L, Iron Level 30L, Total Iron Binding Capacity 164L, Percent Iron Saturation 18, Unsaturated Iron Binding 134, Ferritin 242, Total Bilirubin 1.7H, Direct Bilirubin 0.3, Gamma Glutamyl Transpeptidase 12, Aspartate Amino Transf (AST/SGOT) 20, Alanine Aminotransferase (ALT/SGPT) 14, Alkaline Phosphatase 75, Pro-B-Type Natriuretic Peptide 235H, Total Protein 6.7, Albumin 2.8L, Globulin 3.9, Albumin/Globulin Ratio 0.7L, Triglycerides Level 169H, Cholesterol Level 162, LDL Cholesterol 108H, HDL Cholesterol 34L, Cholesterol/HDL Ratio 4.8H, Lipase 86, Vitamin B12 Level 1670H, Folate 19.0, Thyroid Stimulating Hormone (TSH) 0.770 Height (Feet): 5 Height (Inches): 3.00 Weight (Pounds): 163 Objective WDWN NCAT supple CTA RRR abd soft ND NT, (+) old scar no edema OBS, restrained Jackie Tobar MD Oct 25, 2018 14:03
--- NOTE | 2018-10-25 14:33 | Infectious Diseases Prog Note ---
Assessment/Plan Problems: (1) Pneumatosis intestinalis of large intestine Assessment & Plan: at the anastomosis site, suspect ischemia related to recent surgery or infection with bacterial overgrowth , continue wide spectrum antibiotics coverage with zosyn , and conservative management, with bowel rest and hydration . may need surgical exploration if no improvement with conservative management , repeat CT for follow up (2) UTI (urinary tract infection) Assessment & Plan: with small colonies of VRE and pseudomonas aeruginosa , most likely contaminant , already on zosyn (3) Abdominal pain Assessment & Plan: due to the above, continue pain management as needed (4) Tachycardia Assessment & Plan: unclear etiology , repeated blood culture remains negative so far with no evidence of sepsis , monitor in tele , monitor cardiac enzymes , cardiology is following Subjective Constitutional: Reports: no symptoms HEENT: Reports: no symptoms Respiratory: Reports: no symptoms Breasts: Reports: no symptoms Cardiovascular: Reports: no symptoms Gastrointestinal/Abdominal: Reports: diarrhea, bloating Genitourinary: Reports: no symptoms Neurologic: Reports: no symptoms Psychiatric: Reports: no symptoms Skin: Reports: no symptoms Endocrine: Reports: no symptoms Hematologic: Reports: no symptoms Musculoskeletal: Reports: no symptoms Allergies: Coded Allergies: No Known Allergies (Unverified , 10/18/18) Objective Vital Signs Last 24 Hour Vital Signs Date Time Temp Pulse Resp B/P (MAP) Pulse Ox O2 Delivery O2 Flow Rate FiO2 10/25/18 12:00 98.5 111 20 138/87 (104) 94 10/25/18 11:37 107 10/25/18 08:00 98.2 125 18 115/69 (84) 93 10/25/18 08:00 Room Air 10/25/18 07:46 129 10/25/18 04:00 121 10/25/18 04:00 98.2 119 19 122/79 (93) 96 10/25/18 00:00 116 10/25/18 00:00 98.3 120 20 120/79 (93) 94 10/24/18 21:00 Room Air 10/24/18 20:00 98.4 120 19 124/81 (95) 96 10/24/18 20:00 106 10/24/18 16:00 132 10/24/18 16:00 97.7 131 21 116/78 (91) 97 Height (Feet): 5 Height (Inches): 3.00 Weight (Pounds): 163 General Appearance: WD/WN, no acute distress HEENT: normocephalic, atraumatic, anicteric, mucous membranes moist, PERRL Respiratory/Chest: chest wall non-tender, lungs clear, normal breath sounds, no respiratory distress, no accessory muscle use Cardiovascular: normal peripheral pulses, normal rate, regular rhythm, no gallop/murmur, no JVD Abdomen: soft, non tender, no organomegaly, no mass, no scars, hypoactive bowel sounds, distended Genitourinary: normal external genitalia Extremities: no cyanosis, no clubbing Skin: no rash, no lesions, no ulcers Neurologic/Psychiatric: alert, oriented x 3, responsive Lymphatic: no neck adenopathy, no groin adenopathy Musculoskeletal: normal muscle bulk, no effusion Microbiology Date/Time Source Procedure Growth Status 10/23/18 14:45 Blood Blood Culture - Preliminary NO GROWTH AFTER 24 HOURS Resulted 10/23/18 14:30 Blood Blood Culture - Preliminary NO GROWTH AFTER 24 HOURS Resulted 10/23/18 16:30 Stool Clostridium difficile Toxin Assay - Final Complete Laboratory Tests Test 10/25/18 07:24 White Blood Count 4.7 K/UL (4.8-10.8) L Red Blood Count 5.01 M/UL (4.20-5.40) Hemoglobin 13.2 G/DL (12.0-16.0) Hematocrit 38.9 % (37.0-47.0) Mean Corpuscular Volume 78 FL (80-99) L Mean Corpuscular Hemoglobin 26.3 PG (27.0-31.0) L Mean Corpuscular Hemoglobin Concent 33.9 G/DL (32.0-36.0) Red Cell Distribution Width 12.4 % (11.6-14.8) Platelet Count 223 K/UL (150-450) Mean Platelet Volume 6.6 FL (6.5-10.1) Neutrophils (%) (Auto) 47.2 % (45.0-75.0) Lymphocytes (%) (Auto) 36.1 % (20.0-45.0) Monocytes (%) (Auto) 11.1 % (1.0-10.0) H Eosinophils (%) (Auto) 4.8 % (0.0-3.0) H Basophils (%) (Auto) 0.8 % (0.0-2.0) Sodium Level 144 MMOL/L (136-145) Potassium Level 3.0 MMOL/L (3.5-5.1) L Chloride Level 108 MMOL/L (98-107) H Carbon Dioxide Level 29 MMOL/L (21-32) Anion Gap 7 mmol/L (5-15) Blood Urea Nitrogen 8 mg/dL (7-18) Creatinine 0.7 MG/DL (0.55-1.30) Estimat Glomerular Filtration Rate > 60 mL/min (>60) Glucose Level 154 MG/DL (74-106) H Hemoglobin A1c 7.2 % (4.3-6.0) H Lactic Acid Level 1.00 mmol/L (0.4-2.0) Uric Acid 0.8 MG/DL (2.6-7.2) L Calcium Level 8.7 MG/DL (8.5-10.1) Phosphorus Level 3.4 MG/DL (2.5-4.9) Magnesium Level 1.7 MG/DL (1.8-2.4) L Iron Level 30 ug/dL (50-175) L Total Iron Binding Capacity 164 ug/dL (250-450) L Percent Iron Saturation 18 % (15-50) Unsaturated Iron Binding 134 ug/dL (112-346) Ferritin 242 NG/ML (8-388) Total Bilirubin 1.7 MG/DL (0.2-1.0) H Direct Bilirubin 0.3 MG/DL (0.0-0.3) Gamma Glutamyl Transpeptidase 12 U/L (5-85) Aspartate Amino Transf (AST/SGOT) 20 U/L (15-37) Alanine Aminotransferase (ALT/SGPT) 14 U/L (12-78) Alkaline Phosphatase 75 U/L (46-116) Pro-B-Type Natriuretic Peptide 235 pg/mL (0-125) H Total Protein 6.7 G/DL (6.4-8.2) Albumin 2.8 G/DL (3.4-5.0) L Globulin 3.9 g/dL Albumin/Globulin Ratio 0.7 (1.0-2.7) L Triglycerides Level 169 MG/DL (30-150) H Cholesterol Level 162 MG/DL (< 200) LDL Cholesterol 108 mg/dL (<100) H HDL Cholesterol 34 MG/DL (40-60) L Cholesterol/HDL Ratio 4.8 (3.3-4.4) H Lipase 86 U/L (73-393) Vitamin B12 Level 1670 PG/ML (193-986) H Folate 19.0 NG/ML (8.6-58.9) Thyroid Stimulating Hormone (TSH) 0.770 uiU/mL (0.358-3.740) Current Medications Medications (Trade) Dose Ordered Sig/Leatha Route PRN Reason Start Time Stop Time Status Last Admin Dose Admin Chlorhexidine Gluconate (Roxana-Hex 2%) 1 applic DAILY@1999 TOPIC 10/22/18 20:00 11/21/18 19:59 10/23/18 20:28 Clonazepam (KlonoPIN) 0.5 mg BEDTIME ORAL 10/22/18 21:00 10/29/18 20:59 10/24/18 20:30 Dextrose (Dextrose 50%) 25 ml Q30M PRN IV Hypoglycemia 10/22/18 11:00 11/21/18 10:59 Dextrose (Dextrose 50%) 50 ml Q30M PRN IV Hypoglycemia 10/22/18 11:00 11/21/18 10:59 Diphenhydramine HCl (Benadryl) 50 mg Q6H PRN IM For Anxiety 10/24/18 10:15 11/23/18 10:14 10/24/18 11:05 Insulin Aspart (NovoLOG) Q6HR SUBQ 10/22/18 18:00 11/21/18 17:59 10/24/18 23:23 Lorazepam (Ativan 2mg/ml 1ml) 2 mg Q4H PRN IM For Anxiety 10/24/18 10:15 10/31/18 10:14 10/24/18 11:05 Lorazepam (Ativan) 2 mg Q6H PRN ORAL For Anxiety 10/22/18 11:45 10/29/18 11:44 10/24/18 07:22 Morphine Sulfate (Morphine Sulfate) 0.5 mg Q4H PRN IVP Severe Pain (Pain Scale 7-10) 10/18/18 20:30 10/25/18 20:29 10/23/18 10:06 Ondansetron HCl (Zofran) 4 mg Q4H PRN IVP Nausea & Vomiting 10/18/18 20:30 11/17/18 20:29 10/20/18 10:17 Pantoprazole (Protonix) 40 mg EVERY 12 HOURS IVP 10/24/18 10:45 11/23/18 10:44 10/25/18 08:03 Piperacillin Sod/ Tazobactam Sod 3.375 gm/Dextrose 110 ml @ 27.5 mls/hr EVERY 8 HOURS IVPB 10/20/18 15:00 10/30/18 14:59 10/25/18 14:28 Tahir Cervantes M.D. Oct 25, 2018 14:33
--- NOTE | 2018-10-25 15:35 | Nephrology Progress Note ---
Assessment/Plan Problem List: (1) UTI (urinary tract infection) (2) Electrolyte and fluid disorder Assessment Acute encephalopathy improving Electrolyte imbalance while on TPN ( Low K and low Phos and low mag) h/o Abdominal surgery Weight loss Pneumatosis intestinalis of large intestine UTI (urinary tract infection) Abdominal pain Tachycardia Plan Plan: K Phos and Mag supplement Monitor lytes Per GI and Surgery on Zosyn for UTI Subjective ROS Limited/Unobtainable: No Constitutional: Reports: malaise Objective Objective Last 24 Hour Vital Signs Date Time Temp Pulse Resp B/P (MAP) Pulse Ox O2 Delivery O2 Flow Rate FiO2 10/25/18 12:00 98.5 111 20 138/87 (104) 94 10/25/18 11:37 107 10/25/18 08:00 98.2 125 18 115/69 (84) 93 10/25/18 08:00 Room Air 10/25/18 07:46 129 10/25/18 04:00 121 10/25/18 04:00 98.2 119 19 122/79 (93) 96 10/25/18 00:00 116 10/25/18 00:00 98.3 120 20 120/79 (93) 94 10/24/18 21:00 Room Air 10/24/18 20:00 98.4 120 19 124/81 (95) 96 10/24/18 20:00 106 10/24/18 16:00 132 10/24/18 16:00 97.7 131 21 116/78 (91) 97 Intake and Output 10/24/18 10/25/18 18:59 06:59 Intake Total 480 ml 137.5 ml Balance 480 ml 137.5 ml Intake Oral 480 ml IV Total 137.5 ml # Voids 2 2 Laboratory Tests 10/25/18 07:24: White Blood Count 4.7L, Red Blood Count 5.01, Hemoglobin 13.2, Hematocrit 38.9, Mean Corpuscular Volume 78L, Mean Corpuscular Hemoglobin 26.3L, Mean Corpuscular Hemoglobin Concent 33.9, Red Cell Distribution Width 12.4, Platelet Count 223, Mean Platelet Volume 6.6, Neutrophils (%) (Auto) 47.2, Lymphocytes (% ) (Auto) 36.1, Monocytes (%) (Auto) 11.1H, Eosinophils (%) (Auto) 4.8H, Basophils (%) (Auto) 0.8, Sodium Level 144, Potassium Level 3.0L, Chloride Level 108H, Carbon Dioxide Level 29, Anion Gap 7, Blood Urea Nitrogen 8, Creatinine 0.7, Estimat Glomerular Filtration Rate > 60, Glucose Level 154H, Hemoglobin A1c 7.2H, Lactic Acid Level 1.00, Uric Acid 0.8L, Calcium Level 8.7, Phosphorus Level 3.4, Magnesium Level 1.7L, Iron Level 30L, Total Iron Binding Capacity 164L, Percent Iron Saturation 18, Unsaturated Iron Binding 134, Ferritin 242, Total Bilirubin 1.7H, Direct Bilirubin 0.3, Gamma Glutamyl Transpeptidase 12, Aspartate Amino Transf (AST/SGOT) 20, Alanine Aminotransferase (ALT/SGPT) 14, Alkaline Phosphatase 75, Pro-B-Type Natriuretic Peptide 235H, Total Protein 6.7, Albumin 2.8L, Globulin 3.9, Albumin/Globulin Ratio 0.7L, Triglycerides Level 169H, Cholesterol Level 162, LDL Cholesterol 108H, HDL Cholesterol 34L, Cholesterol/HDL Ratio 4.8H, Lipase 86, Vitamin B12 Level 1670H, Folate 19.0, Thyroid Stimulating Hormone (TSH) 0.770 Height (Feet): 5 Height (Inches): 3.00 Weight (Pounds): 163 General Appearance: no apparent distress, confused Objective no change Familia Balderrama MD Oct 25, 2018 15:35
[2018-10-25 16:25] VITALS: BP 138/87
--- NOTE | 2018-10-25 16:35 | General Surgery Progress Note ---
General Surgery-Progress Note Subjective Additional Comments no acute events. tachycardia improving Objective Last 24 Hour Vital Signs Date Time Temp Pulse Resp B/P (MAP) Pulse Ox O2 Delivery O2 Flow Rate FiO2 10/25/18 16:25 98.5 111 20 138/87 (104) 94 10/25/18 12:00 98.5 111 20 138/87 (104) 94 10/25/18 11:37 107 10/25/18 08:00 98.2 125 18 115/69 (84) 93 10/25/18 08:00 Room Air 10/25/18 07:46 129 10/25/18 04:00 121 10/25/18 04:00 98.2 119 19 122/79 (93) 96 10/25/18 00:00 116 10/25/18 00:00 98.3 120 20 120/79 (93) 94 10/24/18 21:00 Room Air 10/24/18 20:00 98.4 120 19 124/81 (95) 96 10/24/18 20:00 106 I&O Intake and Output 10/24/18 10/25/18 18:59 06:59 Intake Total 480 ml 137.5 ml Balance 480 ml 137.5 ml Intake Oral 480 ml IV Total 137.5 ml # Voids 2 2 Wound: clean, dry, intact Drains: none Cardiovascular: RSR Respiratory: clear Abdomen: soft, distended, tenderness, present bowel sounds Extremities: no cyanosis Laboratory Tests Test 10/25/18 07:24 White Blood Count 4.7 K/UL (4.8-10.8) L Red Blood Count 5.01 M/UL (4.20-5.40) Hemoglobin 13.2 G/DL (12.0-16.0) Hematocrit 38.9 % (37.0-47.0) Mean Corpuscular Volume 78 FL (80-99) L Mean Corpuscular Hemoglobin 26.3 PG (27.0-31.0) L Mean Corpuscular Hemoglobin Concent 33.9 G/DL (32.0-36.0) Red Cell Distribution Width 12.4 % (11.6-14.8) Platelet Count 223 K/UL (150-450) Mean Platelet Volume 6.6 FL (6.5-10.1) Neutrophils (%) (Auto) 47.2 % (45.0-75.0) Lymphocytes (%) (Auto) 36.1 % (20.0-45.0) Monocytes (%) (Auto) 11.1 % (1.0-10.0) H Eosinophils (%) (Auto) 4.8 % (0.0-3.0) H Basophils (%) (Auto) 0.8 % (0.0-2.0) Sodium Level 144 MMOL/L (136-145) Potassium Level 3.0 MMOL/L (3.5-5.1) L Chloride Level 108 MMOL/L (98-107) H Carbon Dioxide Level 29 MMOL/L (21-32) Anion Gap 7 mmol/L (5-15) Blood Urea Nitrogen 8 mg/dL (7-18) Creatinine 0.7 MG/DL (0.55-1.30) Estimat Glomerular Filtration Rate > 60 mL/min (>60) Glucose Level 154 MG/DL (74-106) H Hemoglobin A1c 7.2 % (4.3-6.0) H Lactic Acid Level 1.00 mmol/L (0.4-2.0) Uric Acid 0.8 MG/DL (2.6-7.2) L Calcium Level 8.7 MG/DL (8.5-10.1) Phosphorus Level 3.4 MG/DL (2.5-4.9) Magnesium Level 1.7 MG/DL (1.8-2.4) L Iron Level 30 ug/dL (50-175) L Total Iron Binding Capacity 164 ug/dL (250-450) L Percent Iron Saturation 18 % (15-50) Unsaturated Iron Binding 134 ug/dL (112-346) Ferritin 242 NG/ML (8-388) Total Bilirubin 1.7 MG/DL (0.2-1.0) H Direct Bilirubin 0.3 MG/DL (0.0-0.3) Gamma Glutamyl Transpeptidase 12 U/L (5-85) Aspartate Amino Transf (AST/SGOT) 20 U/L (15-37) Alanine Aminotransferase (ALT/SGPT) 14 U/L (12-78) Alkaline Phosphatase 75 U/L (46-116) Pro-B-Type Natriuretic Peptide 235 pg/mL (0-125) H Total Protein 6.7 G/DL (6.4-8.2) Albumin 2.8 G/DL (3.4-5.0) L Globulin 3.9 g/dL Albumin/Globulin Ratio 0.7 (1.0-2.7) L Triglycerides Level 169 MG/DL (30-150) H Cholesterol Level 162 MG/DL (< 200) LDL Cholesterol 108 mg/dL (<100) H HDL Cholesterol 34 MG/DL (40-60) L Cholesterol/HDL Ratio 4.8 (3.3-4.4) H Lipase 86 U/L (73-393) Vitamin B12 Level 1670 PG/ML (193-986) H Folate 19.0 NG/ML (8.6-58.9) Thyroid Stimulating Hormone (TSH) 0.770 uiU/mL (0.358-3.740) Plan Problems: (1) Abdominal pain Assessment & Plan: abdominal pain n/v resolved labs noted. abd soft, distention, tender/guarding but no peritonitis. surgical wounds c/d/i CT noted. very concerning. CT findings do not correlate with clinical exam as she has been afebrile without peritonitis. now low grade fevers. discussed findings with her primary Surgeon from [facility] Likely infectious colitis as clinically does not seem ischemic. When discussing with primary surgeon he states he would be okay to have her transferred to [facility] for continued care post op. I anticipate with severity of colitis, bowel edema, pneumatosis this will take some time to recover prior to resuming diet. KUB noted labs noted patient pull out lines exam improved. labs okay. doing well with liquids. cont clear liquids for now IV fluids IV abx c diff Plan to continue current care for a few more days. Will then repeat CT scan Friday -will follow with recs. thank you José Miguel Flores Oct 25, 2018 16:35
[2018-10-25] MEDS ORDERED: Gastrograffin 30ml ORAL PRN (16:45)
[2018-10-25] MEDS ORDERED: Isovue-300 100ml vial INJ PRN (16:45)
--- NOTE | 2018-10-25 17:09 | Cardiac Electrophysiology PN ---
Assessment/Plan Assessment/Plan 1. Tachycardia. 12-lead EKG shows sinus tach but also has episodes of SVTs. Echo EF 75%. Add Lopressor 25 mg po bid 2. Abdominal pain. On IV fluids. CT findings were reviewed by Dr. Flores. 3. Anemia. Subjective Subjective No CP or SOB but tachycardic in 130s at rest Objective Last 24 Hour Vital Signs Date Time Temp Pulse Resp B/P (MAP) Pulse Ox O2 Delivery O2 Flow Rate FiO2 10/25/18 16:25 98.5 111 20 138/87 (104) 94 10/25/18 12:00 98.5 111 20 138/87 (104) 94 10/25/18 11:37 107 10/25/18 08:00 98.2 125 18 115/69 (84) 93 10/25/18 08:00 Room Air 10/25/18 07:46 129 10/25/18 04:00 121 10/25/18 04:00 98.2 119 19 122/79 (93) 96 10/25/18 00:00 116 10/25/18 00:00 98.3 120 20 120/79 (93) 94 10/24/18 21:00 Room Air 10/24/18 20:00 98.4 120 19 124/81 (95) 96 10/24/18 20:00 106 Intake and Output 10/24/18 10/25/18 18:59 06:59 Intake Total 480 ml 137.5 ml Balance 480 ml 137.5 ml Intake Oral 480 ml IV Total 137.5 ml # Voids 2 2 Laboratory Tests Test 10/25/18 07:24 White Blood Count 4.7 K/UL (4.8-10.8) L Red Blood Count 5.01 M/UL (4.20-5.40) Hemoglobin 13.2 G/DL (12.0-16.0) Hematocrit 38.9 % (37.0-47.0) Mean Corpuscular Volume 78 FL (80-99) L Mean Corpuscular Hemoglobin 26.3 PG (27.0-31.0) L Mean Corpuscular Hemoglobin Concent 33.9 G/DL (32.0-36.0) Red Cell Distribution Width 12.4 % (11.6-14.8) Platelet Count 223 K/UL (150-450) Mean Platelet Volume 6.6 FL (6.5-10.1) Neutrophils (%) (Auto) 47.2 % (45.0-75.0) Lymphocytes (%) (Auto) 36.1 % (20.0-45.0) Monocytes (%) (Auto) 11.1 % (1.0-10.0) H Eosinophils (%) (Auto) 4.8 % (0.0-3.0) H Basophils (%) (Auto) 0.8 % (0.0-2.0) Sodium Level 144 MMOL/L (136-145) Potassium Level 3.0 MMOL/L (3.5-5.1) L Chloride Level 108 MMOL/L (98-107) H Carbon Dioxide Level 29 MMOL/L (21-32) Anion Gap 7 mmol/L (5-15) Blood Urea Nitrogen 8 mg/dL (7-18) Creatinine 0.7 MG/DL (0.55-1.30) Estimat Glomerular Filtration Rate > 60 mL/min (>60) Glucose Level 154 MG/DL (74-106) H Hemoglobin A1c 7.2 % (4.3-6.0) H Lactic Acid Level 1.00 mmol/L (0.4-2.0) Uric Acid 0.8 MG/DL (2.6-7.2) L Calcium Level 8.7 MG/DL (8.5-10.1) Phosphorus Level 3.4 MG/DL (2.5-4.9) Magnesium Level 1.7 MG/DL (1.8-2.4) L Iron Level 30 ug/dL (50-175) L Total Iron Binding Capacity 164 ug/dL (250-450) L Percent Iron Saturation 18 % (15-50) Unsaturated Iron Binding 134 ug/dL (112-346) Ferritin 242 NG/ML (8-388) Total Bilirubin 1.7 MG/DL (0.2-1.0) H Direct Bilirubin 0.3 MG/DL (0.0-0.3) Gamma Glutamyl Transpeptidase 12 U/L (5-85) Aspartate Amino Transf (AST/SGOT) 20 U/L (15-37) Alanine Aminotransferase (ALT/SGPT) 14 U/L (12-78) Alkaline Phosphatase 75 U/L (46-116) Pro-B-Type Natriuretic Peptide 235 pg/mL (0-125) H Total Protein 6.7 G/DL (6.4-8.2) Albumin 2.8 G/DL (3.4-5.0) L Globulin 3.9 g/dL Albumin/Globulin Ratio 0.7 (1.0-2.7) L Triglycerides Level 169 MG/DL (30-150) H Cholesterol Level 162 MG/DL (< 200) LDL Cholesterol 108 mg/dL (<100) H HDL Cholesterol 34 MG/DL (40-60) L Cholesterol/HDL Ratio 4.8 (3.3-4.4) H Lipase 86 U/L (73-393) Vitamin B12 Level 1670 PG/ML (193-986) H Folate 19.0 NG/ML (8.6-58.9) Thyroid Stimulating Hormone (TSH) 0.770 uiU/mL (0.358-3.740) Microbiology Date/Time Source Procedure Growth Status 10/23/18 14:45 Blood Blood Culture - Preliminary NO GROWTH AFTER 24 HOURS Resulted 10/23/18 14:30 Blood Blood Culture - Preliminary NO GROWTH AFTER 24 HOURS Resulted 10/23/18 16:30 Stool Clostridium difficile Toxin Assay - Final Complete Objective HEAD AND NECK: No VD. LUNGS: Clear. CARDIOVASCULAR: Tachycardic. S1 and S2 with no gallop or murmur. ABDOMEN: Soft. Status post laparoscopic surgery. EXTREMITIES: No pitting edema. Abe Armendariz MD Oct 25, 2018 17:09
[2018-10-25 20:00] VITALS: BP 105/62
--- NOTE | 2018-10-25 20:45 | Progress Note ---
SUBJECTIVE: The patient is currently still slightly confused, improving. OBJECTIVE: CHEST: Bilateral few crackles. CARDIOVASCULAR: Regular rhythm. ABDOMEN: Soft. EXTREMITIES: No CCE. ASSESSMENT: 1. Sinus tachycardia. 2. Abdominal pain. 3. Status post colon cancer. PLAN: We will currently continue n.p.o., PPI, consider current potassium replacement and Cardiology on case. Mark Meehan M.D. DR: ODALIS JOB#: [id number] CC:
[2018-10-25] MEDS: Dyna-Hex 2% Top Sol 2oz TOPIC SCH (21:44)
[2018-10-25] MEDS: clonazePAM 0.5mg tab ORAL SCH (21:44)
[2018-10-25] MEDS: Metoprolol Tartrate 12.5mg TAB ORAL SCH (21:44)
[2018-10-26] VITALS: BP 104/57
[2018-10-26] MEDS: NovoLOG Insulin Flexpen SUBQ SCH ×6 (00:22→23:44)
[2018-10-26 04:00] VITALS: BP 109/64
[2018-10-26] MEDS: Piperacillin/Tazobactam 3.375 GM in D5W 110 ML IVPB SCH (06:21)
[2018-10-26 06:27] LABS: BASOPHILS % (AUTO) 0.9 % (0.0-2.0); EOSINOPHILS % (AUTO) 5.8 % (0.0-3.0); HEMATOCRIT 36.1 % (37.0-47.0); HEMOGLOBIN 12.2 G/DL (12.0-16.0); LYMPHOCYTES % (AUTO) 29.6 % (20.0-45.0); MEAN CORPUSCULAR VOLUME 78 FL (80-99); NEUTROPHILS % (AUTO) 51.7 % (45.0-75.0); PLATELET COUNT 201 K/UL (150-450); RED BLOOD COUNT 4.61 M/UL (4.20-5.40); RED CELL DISTRIBUTION WIDTH 12.5 % (11.6-14.8); WHITE BLOOD COUNT 4.2 K/UL (4.8-10.8)
[2018-10-26 07:20] LABS: ALANINE AMINOTRANSFERASE 13 U/L (12-78); ALBUMIN 2.7 G/DL (3.4-5.0); ALBUMIN/GLOBULIN RATIO 0.7 (1.0-2.7); ALKALINE PHOSPHATASE 71 U/L (46-116); ANION GAP 8 mmol/L (5-15); ASPARTATE AMINO TRANSFERASE 17 U/L (15-37); BILIRUBIN,TOTAL 1.8 MG/DL (0.2-1.0); BLOOD UREA NITROGEN 7 mg/dL (7-18); CALCIUM 8.3 MG/DL (8.5-10.1); CARBON DIOXIDE 28 MMOL/L (21-32); CHLORIDE 107 MMOL/L (98-107); CREATININE 0.7 MG/DL (0.55-1.30); PHOSPHORUS 2.9 MG/DL (2.5-4.9); SODIUM 143 MMOL/L (136-145)
[2018-10-26 07:25] LABS: BILIRUBIN,DIRECT 0.3 MG/DL (0.0-0.3)
[2018-10-26 08:00] VITALS: BP 131/76
[2018-10-26] MEDS: Pantoprazole Inj IVP SCH (08:41)
[2018-10-26] MEDS: Metoprolol Tartrate 12.5mg TAB ORAL SCH (08:41)
--- NOTE | 2018-10-26 08:55 | Nephrology Progress Note ---
Assessment/Plan Problem List: (1) UTI (urinary tract infection) (2) Electrolyte and fluid disorder (3) Tachycardia Assessment Acute encephalopathy improving Electrolyte imbalance while on TPN ( Low K and low Phos and low mag) h/o Abdominal surgery Weight loss Pneumatosis intestinalis of large intestine UTI (urinary tract infection) Abdominal pain Tachycardia Plan Plan: up dose lopressor K Phos and Mag supplement Monitor lytes Per GI and Surgery on Zosyn for UTI Subjective ROS Limited/Unobtainable: No Objective Objective Last 24 Hour Vital Signs Date Time Temp Pulse Resp B/P (MAP) Pulse Ox O2 Delivery O2 Flow Rate FiO2 10/26/18 08:41 104 131/76 10/26/18 08:00 97.7 104 18 131/76 (94) 96 10/26/18 04:00 98.7 106 19 109/64 (79) 96 10/26/18 04:00 100 10/26/18 00:00 103 10/26/18 00:00 98.5 105 19 104/57 (73) 96 10/25/18 21:44 138 105/62 10/25/18 21:00 Room Air 10/25/18 20:00 110 10/25/18 20:00 99.4 138 20 105/62 (76) 96 10/25/18 16:25 98.5 111 20 138/87 (104) 94 10/25/18 15:33 134 10/25/18 12:00 98.5 111 20 138/87 (104) 94 10/25/18 11:37 107 Intake and Output 10/25/18 10/26/18 19:00 07:00 # Voids 2 1 Laboratory Tests 10/26/18 05:25: White Blood Count 4.2L, Red Blood Count 4.61, Hemoglobin 12.2, Hematocrit 36.1L , Mean Corpuscular Volume 78L, Mean Corpuscular Hemoglobin 26.4L, Mean Corpuscular Hemoglobin Concent 33.7, Red Cell Distribution Width 12.5, Platelet Count 201, Mean Platelet Volume 6.6, Neutrophils (%) (Auto) 51.7, Lymphocytes (% ) (Auto) 29.6, Monocytes (%) (Auto) 12.0H, Eosinophils (%) (Auto) 5.8H, Basophils (%) (Auto) 0.9, Sodium Level 143, Potassium Level 3.0L, Chloride Level 107, Carbon Dioxide Level 28, Anion Gap 8, Blood Urea Nitrogen 7, Creatinine 0.7, Estimat Glomerular Filtration Rate > 60, Glucose Level 134H, Uric Acid 0.9L, Calcium Level 8.3L, Phosphorus Level 2.9, Magnesium Level 1.9, Total Bilirubin 1.8H, Direct Bilirubin 0.3, Aspartate Amino Transf (AST/SGOT) 17 , Alanine Aminotransferase (ALT/SGPT) 13, Alkaline Phosphatase 71, C-Reactive Protein, Quantitative 5.5H, Total Protein 6.5, Albumin 2.7L, Globulin 3.8, Albumin/Globulin Ratio 0.7L Height (Feet): 5 Height (Inches): 3.00 Weight (Pounds): 163 General Appearance: no apparent distress Cardiovascular: tachycardia Respiratory/Chest: decreased breath sounds Abdomen: distended Objective no change Familia Balderrama MD Oct 26, 2018 08:55
[2018-10-26] MEDS ORDERED: Metoprolol Tartrate 12.5mg TAB ORAL SCH (09:30)
--- NOTE | 2018-10-26 10:33 | GI Progress Note ---
Assessment/Plan Problems: (1) H/O abdominal surgery ICD Codes: Z98.890 - Other specified postprocedural states SNOMED: 095792820, 997295039 (2) Weight loss ICD Codes: R63.4 - Abnormal weight loss SNOMED: 86218031, 837454857 (3) Dehydration ICD Codes: E86.0 - Dehydration SNOMED: 78484872 (4) Abdominal pain ICD Codes: R10.9 - Unspecified abdominal pain SNOMED: 38751504 Qualifiers: Qualified Codes: R10.84 - Generalized abdominal pain (5) Nausea & vomiting ICD Codes: R11.2 - Nausea with vomiting, unspecified SNOMED: 10677227 Qualifiers: Qualified Codes: R11.2 - Nausea with vomiting, unspecified Status: unchanged Status Narrative Discussed with Dr. Benton. Assessment/Plan CT AP reviewed >> - Status post partial colon resection in the area of the splenic flexure. - Severe pancolitis and pneumatosis involving a dilated preanastomotic segment of the colon(Right hemicolon to splenic flexure). - Some degree of partial obstruction at the level of the anastomosis is not excluded. - Postanastomotic descending and sigmoid colon is nondilated but shows wall thickening and moderate inflammation as well. - No abscess or evidence of perforation. - Mild to moderate free fluid. history of recent abdominal surgery N/V has resolved at this time repeat CT today fu surgical recs TPN held, patient pulled out PICC now on clears bowel rest pain mgmt zofran prn IV hydration fu labs The patient was seen and examined at bedside and all new and available data was reviewed in the patients chart. I agree with the above findings, impression and plan. (Patient seen earlier today. Signature stamp does not reflect patient encounter time.). - Pritesh Benton MD Subjective Subjective Complaints of abdominal pain when urinating Denies any nausea vomiting or diarrhea Complaining of hunger ambulating around the unit Objective Last 24 Hour Vital Signs Date Time Temp Pulse Resp B/P (MAP) Pulse Ox O2 Delivery O2 Flow Rate FiO2 10/26/18 09:36 104 131/76 10/26/18 08:41 104 131/76 10/26/18 08:00 Room Air 10/26/18 08:00 97.7 104 18 131/76 (94) 96 10/26/18 07:47 100 10/26/18 04:00 98.7 106 19 109/64 (79) 96 10/26/18 04:00 100 10/26/18 00:00 103 10/26/18 00:00 98.5 105 19 104/57 (73) 96 10/25/18 21:44 138 105/62 10/25/18 21:00 Room Air 10/25/18 20:00 110 10/25/18 20:00 99.4 138 20 105/62 (76) 96 10/25/18 16:25 98.5 111 20 138/87 (104) 94 10/25/18 15:33 134 10/25/18 12:00 98.5 111 20 138/87 (104) 94 10/25/18 11:37 107 Intake and Output 10/25/18 10/26/18 19:00 07:00 # Voids 2 1 Laboratory Tests Test 10/26/18 05:25 White Blood Count 4.2 K/UL (4.8-10.8) L Red Blood Count 4.61 M/UL (4.20-5.40) Hemoglobin 12.2 G/DL (12.0-16.0) Hematocrit 36.1 % (37.0-47.0) L Mean Corpuscular Volume 78 FL (80-99) L Mean Corpuscular Hemoglobin 26.4 PG (27.0-31.0) L Mean Corpuscular Hemoglobin Concent 33.7 G/DL (32.0-36.0) Red Cell Distribution Width 12.5 % (11.6-14.8) Platelet Count 201 K/UL (150-450) Mean Platelet Volume 6.6 FL (6.5-10.1) Neutrophils (%) (Auto) 51.7 % (45.0-75.0) Lymphocytes (%) (Auto) 29.6 % (20.0-45.0) Monocytes (%) (Auto) 12.0 % (1.0-10.0) H Eosinophils (%) (Auto) 5.8 % (0.0-3.0) H Basophils (%) (Auto) 0.9 % (0.0-2.0) Sodium Level 143 MMOL/L (136-145) Potassium Level 3.0 MMOL/L (3.5-5.1) L Chloride Level 107 MMOL/L (98-107) Carbon Dioxide Level 28 MMOL/L (21-32) Anion Gap 8 mmol/L (5-15) Blood Urea Nitrogen 7 mg/dL (7-18) Creatinine 0.7 MG/DL (0.55-1.30) Estimat Glomerular Filtration Rate > 60 mL/min (>60) Glucose Level 134 MG/DL (74-106) H Uric Acid 0.9 MG/DL (2.6-7.2) L Calcium Level 8.3 MG/DL (8.5-10.1) L Phosphorus Level 2.9 MG/DL (2.5-4.9) Magnesium Level 1.9 MG/DL (1.8-2.4) Total Bilirubin 1.8 MG/DL (0.2-1.0) H Direct Bilirubin 0.3 MG/DL (0.0-0.3) Aspartate Amino Transf (AST/SGOT) 17 U/L (15-37) Alanine Aminotransferase (ALT/SGPT) 13 U/L (12-78) Alkaline Phosphatase 71 U/L (46-116) C-Reactive Protein, Quantitative 5.5 mg/dL (0.00-0.90) H Total Protein 6.5 G/DL (6.4-8.2) Albumin 2.7 G/DL (3.4-5.0) L Globulin 3.8 g/dL Albumin/Globulin Ratio 0.7 (1.0-2.7) L Height (Feet): 5 Height (Inches): 3.00 Weight (Pounds): 163 General Appearance: WD/WN, no apparent distress, alert Cardiovascular: normal rate Respiratory/Chest: normal breath sounds, no respiratory distress Abdominal Exam: normal bowel sounds, non tender, soft Extremities: normal range of motion, non-tender Keyonna Giang NP Oct 26, 2018 10:33
[2018-10-26 12:00] VITALS: BP 119/69
--- NOTE | 2018-10-26 12:20 | Diagnostic Imaging Report ---
Clinical Indication: Abdominal pain Technique: Patient ingested oral thick liquid barium IV administration nonionic contrast. Venous phase spiral acquisition obtained through the abdomen and pelvis. Multiplanar reconstructions were generated. Total dose length product 664.73 mGycm. CTDIvol(s) 11.9 mGy. Dose reduction achieved using automated exposure control Comparison: 10/20/2018 Findings: Again demonstrated is an anastomotic staple line involving the distal transverse colon. Previously demonstrated distention proximal to this has resolved. Previously demonstrated pneumatosis of the proximal colon has resolved. There is persistent inflammation of the surrounding fat, as well as phlegmon tracking along the left paracolic gutter.. No evidence of contrast extravasation is demonstrated. There is minimal residual wall thickening of the transverse colon, much improved from the prior exam. Ingested contrast has traversed the entirety of the small bowel and the entirety of the colon, and there is no evidence of obstructive pathology. No small bowel distention. There is trace free intraperitoneal fluid over the dome of the liver, decreased from the prior study. The appendix is normal. No evidence of diverticulosis or diverticulitis. The gallbladder is distended but not thick walled. No gallstones. No biliary ductal dilatation is evident. The liver, pancreas, spleen, adrenals are unremarkable. The kidneys demonstrate bilateral subcentimeter low-attenuation lesions which are too small to characterize, most likely benign simple cysts. No renal or ureteral calculi, hydronephrosis, or hydroureter demonstrated. The bladder is unremarkable. No pelvic mass or adenopathy. The included lung bases are clear. The heart is borderline enlarged. The bones are unremarkable. Impression: Since prior study 10/20/2018, previously demonstrated proximal colonic distention and pneumatosis have resolved, and wall thickening has improved. There is persistent inflammatory change of the left upper quadrant. This may reflect either residual inflammation related to colitis, or residual inflammatory changes related to surgery 3 weeks ago. No evidence of abscess, obstruction, or anastomotic leakage. Decreased trace free intraperitoneal fluid, over 6 days Borderline cardiomegaly Subcentimeter low-attenuation renal lesions, too small to characterize, most likely benign simple cysts. No further follow-up necessary The CT scanner at [facility] is accredited by the [employer] and the scans are performed using protocols designed to limit radiation exposure to as low as reasonably achievable to attain images of sufficient resolution adequate for diagnostic evaluation.
--- NOTE | 2018-10-26 12:40 | Cardiac Electrophysiology PN ---
Assessment/Plan Assessment/Plan 1. sinus tachycardia. 12-lead EKG shows sinus tach but also has episodes of SVTs. Echo EF 75%. Better on Lopressor 25 mg po bid 2. Abdominal pain. On IV fluids. CT findings were reviewed by Dr. Flores. 3. Anemia. Subjective Subjective No CP or SOB. HR much better. Was NPO as had CT abdomen and Pelvis Objective Last 24 Hour Vital Signs Date Time Temp Pulse Resp B/P (MAP) Pulse Ox O2 Delivery O2 Flow Rate FiO2 10/26/18 12:00 97.9 98 16 119/69 (86) 97 10/26/18 09:36 104 131/76 10/26/18 08:41 104 131/76 10/26/18 08:00 Room Air 10/26/18 08:00 97.7 104 18 131/76 (94) 96 10/26/18 07:47 100 10/26/18 04:00 98.7 106 19 109/64 (79) 96 10/26/18 04:00 100 10/26/18 00:00 103 10/26/18 00:00 98.5 105 19 104/57 (73) 96 10/25/18 21:44 138 105/62 10/25/18 21:00 Room Air 10/25/18 20:00 110 10/25/18 20:00 99.4 138 20 105/62 (76) 96 10/25/18 16:25 98.5 111 20 138/87 (104) 94 10/25/18 15:33 134 Intake and Output 10/25/18 10/26/18 18:59 06:59 # Voids 2 1 Laboratory Tests Test 10/26/18 05:25 White Blood Count 4.2 K/UL (4.8-10.8) L Red Blood Count 4.61 M/UL (4.20-5.40) Hemoglobin 12.2 G/DL (12.0-16.0) Hematocrit 36.1 % (37.0-47.0) L Mean Corpuscular Volume 78 FL (80-99) L Mean Corpuscular Hemoglobin 26.4 PG (27.0-31.0) L Mean Corpuscular Hemoglobin Concent 33.7 G/DL (32.0-36.0) Red Cell Distribution Width 12.5 % (11.6-14.8) Platelet Count 201 K/UL (150-450) Mean Platelet Volume 6.6 FL (6.5-10.1) Neutrophils (%) (Auto) 51.7 % (45.0-75.0) Lymphocytes (%) (Auto) 29.6 % (20.0-45.0) Monocytes (%) (Auto) 12.0 % (1.0-10.0) H Eosinophils (%) (Auto) 5.8 % (0.0-3.0) H Basophils (%) (Auto) 0.9 % (0.0-2.0) Sodium Level 143 MMOL/L (136-145) Potassium Level 3.0 MMOL/L (3.5-5.1) L Chloride Level 107 MMOL/L (98-107) Carbon Dioxide Level 28 MMOL/L (21-32) Anion Gap 8 mmol/L (5-15) Blood Urea Nitrogen 7 mg/dL (7-18) Creatinine 0.7 MG/DL (0.55-1.30) Estimat Glomerular Filtration Rate > 60 mL/min (>60) Glucose Level 134 MG/DL (74-106) H Uric Acid 0.9 MG/DL (2.6-7.2) L Calcium Level 8.3 MG/DL (8.5-10.1) L Phosphorus Level 2.9 MG/DL (2.5-4.9) Magnesium Level 1.9 MG/DL (1.8-2.4) Total Bilirubin 1.8 MG/DL (0.2-1.0) H Direct Bilirubin 0.3 MG/DL (0.0-0.3) Aspartate Amino Transf (AST/SGOT) 17 U/L (15-37) Alanine Aminotransferase (ALT/SGPT) 13 U/L (12-78) Alkaline Phosphatase 71 U/L (46-116) C-Reactive Protein, Quantitative 5.5 mg/dL (0.00-0.90) H Total Protein 6.5 G/DL (6.4-8.2) Albumin 2.7 G/DL (3.4-5.0) L Globulin 3.8 g/dL Albumin/Globulin Ratio 0.7 (1.0-2.7) L Microbiology Date/Time Source Procedure Growth Status 10/23/18 14:45 Blood Blood Culture - Preliminary NO GROWTH AFTER 48 HOURS Resulted 10/23/18 14:30 Blood Blood Culture - Preliminary NO GROWTH AFTER 48 HOURS Resulted 10/23/18 16:30 Stool Clostridium difficile Toxin Assay - Final Complete Objective HEAD AND NECK: No VD. LUNGS: Clear. CARDIOVASCULAR: Regular S1 and S2 with no gallop or murmur. ABDOMEN: Soft. Status post laparoscopic surgery. EXTREMITIES: No pitting edema. Abe Armendariz MD Oct 26, 2018 12:40
--- NOTE | 2018-10-26 12:45 | General Surgery Progress Note ---
General Surgery-Progress Note Subjective Symptoms: improved, pain absent, tolerating diet, passing flatus Additional Comments doing much better Objective Last 24 Hour Vital Signs Date Time Temp Pulse Resp B/P (MAP) Pulse Ox O2 Delivery O2 Flow Rate FiO2 10/26/18 12:00 97.9 98 16 119/69 (86) 97 10/26/18 09:36 104 131/76 10/26/18 08:41 104 131/76 10/26/18 08:00 Room Air 10/26/18 08:00 97.7 104 18 131/76 (94) 96 10/26/18 07:47 100 10/26/18 04:00 98.7 106 19 109/64 (79) 96 10/26/18 04:00 100 10/26/18 00:00 103 10/26/18 00:00 98.5 105 19 104/57 (73) 96 10/25/18 21:44 138 105/62 10/25/18 21:00 Room Air 10/25/18 20:00 110 10/25/18 20:00 99.4 138 20 105/62 (76) 96 10/25/18 16:25 98.5 111 20 138/87 (104) 94 10/25/18 15:33 134 I&O Intake and Output 10/25/18 10/26/18 19:00 07:00 # Voids 2 1 Wound: clean, dry, intact Drains: none Cardiovascular: RSR Respiratory: clear Abdomen: soft, flat, non-tender, present bowel sounds Extremities: no tenderness, no cyanosis Laboratory Tests Test 10/26/18 05:25 White Blood Count 4.2 K/UL (4.8-10.8) L Red Blood Count 4.61 M/UL (4.20-5.40) Hemoglobin 12.2 G/DL (12.0-16.0) Hematocrit 36.1 % (37.0-47.0) L Mean Corpuscular Volume 78 FL (80-99) L Mean Corpuscular Hemoglobin 26.4 PG (27.0-31.0) L Mean Corpuscular Hemoglobin Concent 33.7 G/DL (32.0-36.0) Red Cell Distribution Width 12.5 % (11.6-14.8) Platelet Count 201 K/UL (150-450) Mean Platelet Volume 6.6 FL (6.5-10.1) Neutrophils (%) (Auto) 51.7 % (45.0-75.0) Lymphocytes (%) (Auto) 29.6 % (20.0-45.0) Monocytes (%) (Auto) 12.0 % (1.0-10.0) H Eosinophils (%) (Auto) 5.8 % (0.0-3.0) H Basophils (%) (Auto) 0.9 % (0.0-2.0) Sodium Level 143 MMOL/L (136-145) Potassium Level 3.0 MMOL/L (3.5-5.1) L Chloride Level 107 MMOL/L (98-107) Carbon Dioxide Level 28 MMOL/L (21-32) Anion Gap 8 mmol/L (5-15) Blood Urea Nitrogen 7 mg/dL (7-18) Creatinine 0.7 MG/DL (0.55-1.30) Estimat Glomerular Filtration Rate > 60 mL/min (>60) Glucose Level 134 MG/DL (74-106) H Uric Acid 0.9 MG/DL (2.6-7.2) L Calcium Level 8.3 MG/DL (8.5-10.1) L Phosphorus Level 2.9 MG/DL (2.5-4.9) Magnesium Level 1.9 MG/DL (1.8-2.4) Total Bilirubin 1.8 MG/DL (0.2-1.0) H Direct Bilirubin 0.3 MG/DL (0.0-0.3) Aspartate Amino Transf (AST/SGOT) 17 U/L (15-37) Alanine Aminotransferase (ALT/SGPT) 13 U/L (12-78) Alkaline Phosphatase 71 U/L (46-116) C-Reactive Protein, Quantitative 5.5 mg/dL (0.00-0.90) H Total Protein 6.5 G/DL (6.4-8.2) Albumin 2.7 G/DL (3.4-5.0) L Globulin 3.8 g/dL Albumin/Globulin Ratio 0.7 (1.0-2.7) L Plan Problems: (1) Abdominal pain Assessment & Plan: abdominal pain n/v resolved labs noted. abd soft, distention, tender/guarding but no peritonitis. surgical wounds c/d/i CT noted. very concerning. CT findings do not correlate with clinical exam as she has been afebrile without peritonitis. now low grade fevers. discussed findings with her primary Surgeon from [facility] Likely infectious colitis as clinically does not seem ischemic. When discussing with primary surgeon he states he would be okay to have her transferred to [facility] for continued care post op. I anticipate with severity of colitis, bowel edema, pneumatosis this will take some time to recover prior to resuming diet. KUB noted labs noted patient pull out lines exam improved. labs okay. exam improved tolerating diet repeat CT with significant improvement! regular diet IV abx --> can transition to oral d/c planning will follow with recs. thank you José Miguel Flores Oct 26, 2018 12:45
--- NOTE | 2018-10-26 14:46 | Infectious Diseases Prog Note ---
Assessment/Plan Problems: (1) Pneumatosis intestinalis of large intestine Assessment & Plan: at the anastomosis site, suspect ischemia related to recent surgery or infection with bacterial overgrowth , improved on repeated CT scan and clinically , will switch zosyn to ciprofloxacin and metronidazole for 6 more days . follow up with surgery (2) UTI (urinary tract infection) Assessment & Plan: with small colonies of VRE and pseudomonas aeruginosa , most likely contaminant (3) Abdominal pain Assessment & Plan: due to the above, continue pain management as needed (4) Tachycardia Assessment & Plan: unclear etiology , repeated blood culture remains negative so far with no evidence of sepsis , monitor in tele , on beta blockers cardiology is following Subjective Constitutional: Reports: no symptoms HEENT: Reports: no symptoms Respiratory: Reports: no symptoms Breasts: Reports: no symptoms Cardiovascular: Reports: no symptoms Gastrointestinal/Abdominal: Reports: no symptoms Genitourinary: Reports: no symptoms Neurologic: Reports: no symptoms Psychiatric: Reports: no symptoms Skin: Reports: no symptoms Endocrine: Reports: no symptoms Hematologic: Reports: no symptoms Musculoskeletal: Reports: no symptoms Allergies: Coded Allergies: No Known Allergies (Unverified , 10/18/18) Objective Vital Signs Last 24 Hour Vital Signs Date Time Temp Pulse Resp B/P (MAP) Pulse Ox O2 Delivery O2 Flow Rate FiO2 10/26/18 12:00 97.9 98 16 119/69 (86) 97 10/26/18 09:36 104 131/76 10/26/18 08:41 104 131/76 10/26/18 08:00 Room Air 10/26/18 08:00 97.7 104 18 131/76 (94) 96 10/26/18 07:47 100 10/26/18 04:00 98.7 106 19 109/64 (79) 96 10/26/18 04:00 100 10/26/18 00:00 103 10/26/18 00:00 98.5 105 19 104/57 (73) 96 10/25/18 21:44 138 105/62 10/25/18 21:00 Room Air 10/25/18 20:00 110 10/25/18 20:00 99.4 138 20 105/62 (76) 96 10/25/18 16:25 98.5 111 20 138/87 (104) 94 10/25/18 15:33 134 Height (Feet): 5 Height (Inches): 3.00 Weight (Pounds): 163 General Appearance: WD/WN, no acute distress HEENT: normocephalic, atraumatic, anicteric, mucous membranes moist, PERRL Respiratory/Chest: chest wall non-tender, lungs clear, normal breath sounds, no respiratory distress, no accessory muscle use Cardiovascular: normal peripheral pulses, normal rate, regular rhythm, no gallop/murmur, no JVD Abdomen: normal bowel sounds, soft, non tender, no organomegaly, non distended , no mass, no scars Genitourinary: normal external genitalia Extremities: no cyanosis, no clubbing Skin: no rash, no lesions, no ulcers Neurologic/Psychiatric: alert, oriented x 3, responsive Lymphatic: no neck adenopathy, no groin adenopathy Musculoskeletal: normal muscle bulk, no effusion Microbiology Date/Time Source Procedure Growth Status 10/23/18 14:45 Blood Blood Culture - Preliminary NO GROWTH AFTER 48 HOURS Resulted 10/23/18 16:30 Stool Clostridium difficile Toxin Assay - Final Complete Laboratory Tests Test 10/26/18 05:25 White Blood Count 4.2 K/UL (4.8-10.8) L Red Blood Count 4.61 M/UL (4.20-5.40) Hemoglobin 12.2 G/DL (12.0-16.0) Hematocrit 36.1 % (37.0-47.0) L Mean Corpuscular Volume 78 FL (80-99) L Mean Corpuscular Hemoglobin 26.4 PG (27.0-31.0) L Mean Corpuscular Hemoglobin Concent 33.7 G/DL (32.0-36.0) Red Cell Distribution Width 12.5 % (11.6-14.8) Platelet Count 201 K/UL (150-450) Mean Platelet Volume 6.6 FL (6.5-10.1) Neutrophils (%) (Auto) 51.7 % (45.0-75.0) Lymphocytes (%) (Auto) 29.6 % (20.0-45.0) Monocytes (%) (Auto) 12.0 % (1.0-10.0) H Eosinophils (%) (Auto) 5.8 % (0.0-3.0) H Basophils (%) (Auto) 0.9 % (0.0-2.0) Sodium Level 143 MMOL/L (136-145) Potassium Level 3.0 MMOL/L (3.5-5.1) L Chloride Level 107 MMOL/L (98-107) Carbon Dioxide Level 28 MMOL/L (21-32) Anion Gap 8 mmol/L (5-15) Blood Urea Nitrogen 7 mg/dL (7-18) Creatinine 0.7 MG/DL (0.55-1.30) Estimat Glomerular Filtration Rate > 60 mL/min (>60) Glucose Level 134 MG/DL (74-106) H Uric Acid 0.9 MG/DL (2.6-7.2) L Calcium Level 8.3 MG/DL (8.5-10.1) L Phosphorus Level 2.9 MG/DL (2.5-4.9) Magnesium Level 1.9 MG/DL (1.8-2.4) Total Bilirubin 1.8 MG/DL (0.2-1.0) H Direct Bilirubin 0.3 MG/DL (0.0-0.3) Aspartate Amino Transf (AST/SGOT) 17 U/L (15-37) Alanine Aminotransferase (ALT/SGPT) 13 U/L (12-78) Alkaline Phosphatase 71 U/L (46-116) C-Reactive Protein, Quantitative 5.5 mg/dL (0.00-0.90) H Total Protein 6.5 G/DL (6.4-8.2) Albumin 2.7 G/DL (3.4-5.0) L Globulin 3.8 g/dL Albumin/Globulin Ratio 0.7 (1.0-2.7) L Current Medications Medications (Trade) Dose Ordered Sig/Leatha Route PRN Reason Start Time Stop Time Status Last Admin Dose Admin Clonazepam (KlonoPIN) 0.5 mg BEDTIME ORAL 10/22/18 21:00 10/29/18 20:59 10/25/18 21:44 Dextrose (Dextrose 50%) 25 ml Q30M PRN IV Hypoglycemia 10/22/18 11:00 11/21/18 10:59 Dextrose (Dextrose 50%) 50 ml Q30M PRN IV Hypoglycemia 10/22/18 11:00 11/21/18 10:59 Diatrizoate Meglum/ Diatrizoate Sod (Gastrografin) 30 ml NOW PRN ORAL Radiology Procedure 10/25/18 16:45 10/27/18 23:59 Diphenhydramine HCl (Benadryl) 50 mg Q6H PRN IM For Anxiety 10/24/18 10:15 11/23/18 10:14 10/24/18 11:05 Insulin Aspart (NovoLOG) Q6HR SUBQ 10/22/18 18:00 11/21/18 17:59 10/26/18 00:22 Iopamidol (Isovue-300 100ml) 100 ml NOW PRN INJ Radiology Procedure 10/25/18 16:45 10/27/18 23:59 Lorazepam (Ativan 2mg/ml 1ml) 2 mg Q4H PRN IM For Anxiety 10/24/18 10:15 10/31/18 10:14 10/24/18 11:05 Lorazepam (Ativan) 2 mg Q6H PRN ORAL For Anxiety 10/22/18 11:45 10/29/18 11:44 10/24/18 07:22 Metoprolol Tartrate (Lopressor) 25 mg Q12HR ORAL 10/26/18 21:00 11/25/18 20:59 Ondansetron HCl (Zofran) 4 mg Q4H PRN IVP Nausea & Vomiting 10/18/18 20:30 11/17/18 20:29 10/20/18 10:17 Piperacillin Sod/ Tazobactam Sod 3.375 gm/Dextrose 110 ml @ 27.5 mls/hr EVERY 8 HOURS IVPB 10/20/18 15:00 10/30/18 14:59 10/26/18 06:21 Potassium Chloride (K-Dur) 40 meq BID ORAL 10/26/18 09:00 11/25/18 08:59 10/26/18 08:42 Tahir Cervantes M.D. Oct 26, 2018 14:46
[2018-10-26 16:00] VITALS: BP 114/64
--- NOTE | 2018-10-26 17:44 | General Progress Note ---
Assessment/Plan Assessment/Plan # Stage I colon cancer per patient. s/p surgery Status post partial colon resection in the area of the splenic flexure. Severe pancolitis and pneumatosis involving a dilated preanastomotic segment of the colon (Right hemicolon to splenic flexure). Some degree of partial obstruction at the level of the anastomosis is not excluded. Postanastomotic descending and sigmoid colon is nondilated but shows wall thickening and moderate inflammation as well. --> no hx of mets --> cea is 2.2 --> outpatient screening/surveillance with colo prn --> obtain path report (rn aware of request) # Leukopenia - likely due to infection v reactive. Status post partial colon resection in the area of the splenic flexure. Severe pancolitis and pneumatosis involving a dilated preanastomotic segment of the colon (Right hemicolon to splenic flexure). Some degree of partial obstruction at the level of the anastomosis is not excluded. Postanastomotic descending and sigmoid colon is nondilated but shows wall thickening and moderate inflammation as wel --> Continue to monitor and trend wbc for improvement --> Hep panel and HIV are both negative --> improved from recent surgery --> 10/26 scan has improved # Urinary tract infection. ID is following, appreciate recs. --> On abx, empiric tx. --> urine culture++ # Abdominal pain. Surgery and GI are following, appreciate recs --> Rule out obstruction. --> Continue supportive care with surgery --> consider transfer as per surgery --> IV fluid hydration, pain management, and NPO for now --> refusing transfer to [facility] # Nausea and vomiting, suspect due to the above. --> Continue supportive care with antinausea medicine and hydration as needed --> ronnie gi and surg recs GREATLY APPRECIATE CONSULTATION. Subjective Constitutional: Denies: no symptoms, chills, diaphoresis, fever, malaise, weakness, other HEENT: Denies: no symptoms, eye pain, blurred vision, tearing, double vision, ear pain, ear discharge, nose pain, nose congestion, throat pain, throat swelling, mouth pain, mouth swelling, other Cardiovascular: Denies: no symptoms, chest pain, edema, irregular heart rate, lightheadedness, palpitations, syncope, other Respiratory: Denies: no symptoms, cough, orthopnea, shortness of breath, SOB with excertion, SOB at rest, sputum, stridor, wheezing, other Gastrointestinal/Abdominal: Denies: no symptoms, abdomen distended, abdominal pain, black stools, tarry stools, blood in stool, constipated, diarrhea, difficulty swallowing, nausea, poor appetite, poor fluid intake, rectal bleeding , vomiting, other Genitourinary: Denies: no symptoms, burning, discharge, frequency, flank pain, hematuria, incontinence, pain, urgency, other Neurologic/Psychiatric: Denies: no symptoms, anxiety, depressed, emotional problems, headache, numbness, paresthesia, pre-existing deficit, seizure, tingling, tremors, weakness, other Endocrine: Denies: no symptoms, excessive sweating, flushing, intolerance to cold, intolerance to heat, increased hunger, increased thirst, increased urine, unexplained weight gain, unexplained weight loss, other Hematologic/Lymphatic: Denies: no symptoms, anemia, easy bleeding, easy bruising, other Allergies: Coded Allergies: No Known Allergies (Unverified , 10/18/18) Subjective Pt awake and alert. On med tele, abd pain better Objective Last 24 Hour Vital Signs Date Time Temp Pulse Resp B/P (MAP) Pulse Ox O2 Delivery O2 Flow Rate FiO2 10/26/18 12:00 97.9 98 16 119/69 (86) 97 10/26/18 09:36 104 131/76 10/26/18 08:41 104 131/76 10/26/18 08:00 Room Air 10/26/18 08:00 97.7 104 18 131/76 (94) 96 10/26/18 07:47 100 10/26/18 04:00 98.7 106 19 109/64 (79) 96 10/26/18 04:00 100 10/26/18 00:00 103 10/26/18 00:00 98.5 105 19 104/57 (73) 96 10/25/18 21:44 138 105/62 10/25/18 21:00 Room Air 10/25/18 20:00 110 10/25/18 20:00 99.4 138 20 105/62 (76) 96 Intake and Output 10/25/18 10/26/18 18:59 06:59 # Voids 2 1 Laboratory Tests 10/26/18 05:25: White Blood Count 4.2L, Red Blood Count 4.61, Hemoglobin 12.2, Hematocrit 36.1L , Mean Corpuscular Volume 78L, Mean Corpuscular Hemoglobin 26.4L, Mean Corpuscular Hemoglobin Concent 33.7, Red Cell Distribution Width 12.5, Platelet Count 201, Mean Platelet Volume 6.6, Neutrophils (%) (Auto) 51.7, Lymphocytes (% ) (Auto) 29.6, Monocytes (%) (Auto) 12.0H, Eosinophils (%) (Auto) 5.8H, Basophils (%) (Auto) 0.9, Sodium Level 143, Potassium Level 3.0L, Chloride Level 107, Carbon Dioxide Level 28, Anion Gap 8, Blood Urea Nitrogen 7, Creatinine 0.7, Estimat Glomerular Filtration Rate > 60, Glucose Level 134H, Uric Acid 0.9L, Calcium Level 8.3L, Phosphorus Level 2.9, Magnesium Level 1.9, Total Bilirubin 1.8H, Direct Bilirubin 0.3, Aspartate Amino Transf (AST/SGOT) 17 , Alanine Aminotransferase (ALT/SGPT) 13, Alkaline Phosphatase 71, C-Reactive Protein, Quantitative 5.5H, Total Protein 6.5, Albumin 2.7L, Globulin 3.8, Albumin/Globulin Ratio 0.7L Height (Feet): 5 Height (Inches): 3.00 Weight (Pounds): 163 EENT: TMs normal Neck: normal alignment Cardiovascular: regular rhythm Respiratory/Chest: normal breath sounds Abdomen: abnormal bowel sounds Extremities: normal inspection Edema: mild edema Neurologic: alert Jose Barreto MD Oct 26, 2018 17:44
[2018-10-26 20:00] VITALS: BP 95/45
[2018-10-26] MEDS: Metoprolol 25mg tab ORAL SCH (21:00)
[2018-10-26] MEDS: clonazePAM 0.5mg tab ORAL SCH (21:05)
[2018-10-26] MEDS: metroNIDAZOLE 250mg tab ORAL SCH (21:05)
[2018-10-27] VITALS: BP 99/62
[2018-10-27 04:00] VITALS: BP 116/63
[2018-10-27] MEDS: NovoLOG Insulin Flexpen SUBQ SCH ×4 (05:38→20:57)
[2018-10-27] MEDS: metroNIDAZOLE 250mg tab ORAL SCH ×3 (06:03→20:51)
[2018-10-27 08:00] VITALS: BP 101/72
[2018-10-27] MEDS: Metoprolol 25mg tab ORAL SCH (09:39)
[2018-10-27 10:31] LABS: BASOPHILS % (AUTO) 1.3 % (0.0-2.0); EOSINOPHILS % (AUTO) 4.6 % (0.0-3.0); HEMATOCRIT 37.9 % (37.0-47.0); HEMOGLOBIN 12.4 G/DL (12.0-16.0); LYMPHOCYTES % (AUTO) 30.6 % (20.0-45.0); MEAN CORPUSCULAR VOLUME 82 FL (80-99); MONOCYTES % (AUTO) 12.7 % (1.0-10.0); NEUTROPHILS % (AUTO) 50.7 % (45.0-75.0); PLATELET COUNT 217 K/UL (150-450); RED BLOOD COUNT 4.62 M/UL (4.20-5.40); RED CELL DISTRIBUTION WIDTH 12.5 % (11.6-14.8); WHITE BLOOD COUNT 4.7 K/UL (4.8-10.8)
--- NOTE | 2018-10-27 10:37 | Cardiac Electrophysiology PN ---
Assessment/Plan Assessment/Plan 1. Sinus tachycardia. 12-lead EKG shows sinus tach but also has episodes of SVTs. EF 75%. Increase Lopressor to 50 mg po bid 2. Abdominal pain. On IV fluids. CT findings were reviewed by Dr. Flores significant improvement. 3. Anemia. GARFIELD RN DC planning to [place] Subjective Subjective No CP or SOB.Had CT abdomen and Pelvis yesterday. In sinus tach. Objective Last 24 Hour Vital Signs Date Time Temp Pulse Resp B/P (MAP) Pulse Ox O2 Delivery O2 Flow Rate FiO2 10/27/18 09:39 130 101/72 10/27/18 09:00 Room Air 10/27/18 08:00 130 10/27/18 08:00 98.0 134 21 101/72 (82) 93 10/27/18 04:00 124 10/27/18 04:00 96.8 126 17 116/63 (80) 95 10/27/18 00:00 97.9 111 17 99/62 (74) 95 10/27/18 00:00 109 10/26/18 21:00 131 95/45 10/26/18 21:00 Room Air 10/26/18 20:00 132 10/26/18 20:00 96.3 131 17 95/45 (62) 97 10/26/18 16:00 97.6 131 18 114/64 (81) 97 10/26/18 15:14 127 10/26/18 12:00 97.9 98 16 119/69 (86) 97 10/26/18 11:53 96 Intake and Output 10/26/18 10/27/18 19:00 07:00 Intake Total 1000 ml Balance 1000 ml Intake Oral 1000 ml # Voids 2 # Bowel Movements 1 Laboratory Tests Test 10/27/18 09:55 White Blood Count Pending Red Blood Count Pending Hemoglobin Pending Hematocrit Pending Mean Corpuscular Volume Pending Mean Corpuscular Hemoglobin Pending Mean Corpuscular Hemoglobin Concent Pending Red Cell Distribution Width Pending Platelet Count Pending Mean Platelet Volume Pending Neutrophils (%) (Auto) Pending Lymphocytes (%) (Auto) Pending Monocytes (%) (Auto) Pending Eosinophils (%) (Auto) Pending Basophils (%) (Auto) Pending Sodium Level Pending Potassium Level Pending Chloride Level Pending Carbon Dioxide Level Pending Blood Urea Nitrogen Pending Creatinine Pending Estimat Glomerular Filtration Rate Pending Glucose Level Pending Calcium Level Pending Total Bilirubin Pending Aspartate Amino Transf (AST/SGOT) Pending Alanine Aminotransferase (ALT/SGPT) Pending Alkaline Phosphatase Pending Total Protein Pending Albumin Pending Globulin Pending Objective HEAD AND NECK: No VD. LUNGS: Clear. CARDIOVASCULAR: Regular S1 and S2 with no gallop or murmur. ABDOMEN: Soft. Status post laparoscopic surgery. EXTREMITIES: No pitting edema. Abe Armendariz MD Oct 27, 2018 10:37
[2018-10-27 10:54] LABS: ALANINE AMINOTRANSFERASE 17 U/L (12-78); ALBUMIN 2.9 G/DL (3.4-5.0); ALBUMIN/GLOBULIN RATIO 0.7 (1.0-2.7); ALKALINE PHOSPHATASE 76 U/L (46-116); ANION GAP 12 mmol/L (5-15); ASPARTATE AMINO TRANSFERASE 15 U/L (15-37); BILIRUBIN,TOTAL 1.5 MG/DL (0.2-1.0); BLOOD UREA NITROGEN 8 mg/dL (7-18); CALCIUM 8.8 MG/DL (8.5-10.1); CARBON DIOXIDE 25 MMOL/L (21-32); CHLORIDE 107 MMOL/L (98-107); CREATININE 0.7 MG/DL (0.55-1.30); POTASSIUM 3.8 MMOL/L (3.5-5.1); SODIUM 143 MMOL/L (136-145)
[2018-10-27 11:06] LABS: BILIRUBIN,DIRECT 0.3 MG/DL (0.0-0.3)
--- NOTE | 2018-10-27 11:45 | General Progress Note ---
Assessment/Plan Status: stable Assessment/Plan # Stage I colon cancer per patient. s/p surgery Status post partial colon resection in the area of the splenic flexure. Severe pancolitis and pneumatosis involving a dilated preanastomotic segment of the colon (Right hemicolon to splenic flexure). Some degree of partial obstruction at the level of the anastomosis is not excluded. Postanastomotic descending and sigmoid colon is nondilated but shows wall thickening and moderate inflammation as well. --> no hx of mets --> cea is 2.2 --> outpatient screening/surveillance with colo prn --> obtain path report (rn aware of request) # Leukopenia - likely due to infection v reactive. Status post partial colon resection in the area of the splenic flexure. Severe pancolitis and pneumatosis involving a dilated preanastomotic segment of the colon (Right hemicolon to splenic flexure). Some degree of partial obstruction at the level of the anastomosis is not excluded. Postanastomotic descending and sigmoid colon is nondilated but shows wall thickening and moderate inflammation as wel --> Continue to monitor and trend wbc for improvement --> Hep panel and HIV are both negative --> improved from recent surgery --> 10/26 scan has improved # Urinary tract infection. ID is following, appreciate recs. --> Completed abx, empiric tx. --> urine culture++ # Abdominal pain. Surgery and GI are following, appreciate recs --> No evidence of obstruction. --> Continue supportive care with surgery --> consider transfer as per surgery --> IV fluid hydration, pain management, and NPO for now --> refusing transfer to [facility] # Nausea and vomiting, suspect due to the above. --> Continue supportive care with antinausea medicine and hydration as needed --> ronnie gi and surg recs GREATLY APPRECIATE CONSULTATION. Subjective Date patient seen: Oct 27, 2018 Allergies: Coded Allergies: No Known Allergies (Unverified , 10/18/18) All Systems: reviewed and negative except above Subjective Pt awake and alert. No acute events. DC planning. Objective Last 24 Hour Vital Signs Date Time Temp Pulse Resp B/P (MAP) Pulse Ox O2 Delivery O2 Flow Rate FiO2 10/27/18 09:39 130 101/72 10/27/18 09:00 Room Air 10/27/18 08:00 130 10/27/18 08:00 98.0 134 21 101/72 (82) 93 10/27/18 04:00 124 10/27/18 04:00 96.8 126 17 116/63 (80) 95 10/27/18 00:00 97.9 111 17 99/62 (74) 95 10/27/18 00:00 109 10/26/18 21:00 131 95/45 10/26/18 21:00 Room Air 10/26/18 20:00 132 10/26/18 20:00 96.3 131 17 95/45 (62) 97 10/26/18 16:00 97.6 131 18 114/64 (81) 97 10/26/18 15:14 127 10/26/18 12:00 97.9 98 16 119/69 (86) 97 10/26/18 11:53 96 Intake and Output 10/26/18 10/27/18 19:00 07:00 Intake Total 1000 ml Balance 1000 ml Intake Oral 1000 ml # Voids 2 # Bowel Movements 1 Laboratory Tests 10/27/18 09:55: White Blood Count 4.7L, Red Blood Count 4.62, Hemoglobin 12.4, Hematocrit 37.9, Mean Corpuscular Volume 82, Mean Corpuscular Hemoglobin 26.8L, Mean Corpuscular Hemoglobin Concent 32.6, Red Cell Distribution Width 12.5, Platelet Count 217, Mean Platelet Volume 6.5, Neutrophils (%) (Auto) 50.7, Lymphocytes (%) (Auto) 30.6, Monocytes (%) (Auto) 12.7H, Eosinophils (%) (Auto) 4.6H, Basophils (%) ( Auto) 1.3, Sodium Level 143, Potassium Level 3.8, Chloride Level 107, Carbon Dioxide Level 25, Anion Gap 12, Blood Urea Nitrogen 8, Creatinine 0.7, Estimat Glomerular Filtration Rate > 60, Glucose Level 157H, Calcium Level 8.8, Total Bilirubin 1.5H, Direct Bilirubin 0.3, Aspartate Amino Transf (AST/SGOT) 15, Alanine Aminotransferase (ALT/SGPT) 17, Alkaline Phosphatase 76, Total Protein 6.9, Albumin 2.9L, Globulin 4.0, Albumin/Globulin Ratio 0.7L Height (Feet): 5 Height (Inches): 3.00 Weight (Pounds): 163 Kleynberg,Jose L. MD Oct 27, 2018 11:45
[2018-10-27 12:00] VITALS: BP 116/68
--- NOTE | 2018-10-27 12:14 | Nephrology Progress Note ---
Assessment/Plan Problem List: (1) UTI (urinary tract infection) (2) Electrolyte and fluid disorder (3) Tachycardia Assessment Acute encephalopathy improving Electrolyte imbalance while on TPN ( Low K and low Phos and low mag) h/o Abdominal surgery Weight loss Pneumatosis intestinalis of large intestine UTI (urinary tract infection) Abdominal pain Tachycardia Plan Plan: up dose lopressor K Phos and Mag supplement Monitor lytes Per GI and Surgery on Zosyn for UTI Objective Objective Last 24 Hour Vital Signs Date Time Temp Pulse Resp B/P (MAP) Pulse Ox O2 Delivery O2 Flow Rate FiO2 10/27/18 09:39 130 101/72 10/27/18 09:00 Room Air 10/27/18 08:00 130 10/27/18 08:00 98.0 134 21 101/72 (82) 93 10/27/18 04:00 124 10/27/18 04:00 96.8 126 17 116/63 (80) 95 10/27/18 00:00 97.9 111 17 99/62 (74) 95 10/27/18 00:00 109 10/26/18 21:00 131 95/45 10/26/18 21:00 Room Air 10/26/18 20:00 132 10/26/18 20:00 96.3 131 17 95/45 (62) 97 10/26/18 16:00 97.6 131 18 114/64 (81) 97 10/26/18 15:14 127 Intake and Output 10/26/18 10/27/18 19:00 07:00 Intake Total 1000 ml Balance 1000 ml Intake Oral 1000 ml # Voids 2 # Bowel Movements 1 Current Medications Medications (Trade) Dose Ordered Sig/Leatha Route PRN Reason Start Time Stop Time Status Last Admin Dose Admin Ciprofloxacin (Cipro 250mg tab) 250 mg EVERY 12 HOURS ORAL 10/26/18 21:00 11/02/18 20:59 10/27/18 09:39 Clonazepam (KlonoPIN) 0.5 mg BEDTIME ORAL 10/22/18 21:00 10/29/18 20:59 10/26/18 21:05 Dextrose (Dextrose 50%) 25 ml Q30M PRN IV Hypoglycemia 10/22/18 11:00 11/21/18 10:59 Dextrose (Dextrose 50%) 50 ml Q30M PRN IV Hypoglycemia 10/22/18 11:00 11/21/18 10:59 Diatrizoate Meglum/ Diatrizoate Sod (Gastrografin) 30 ml NOW PRN ORAL Radiology Procedure 10/25/18 16:45 10/27/18 23:59 Diphenhydramine HCl (Benadryl) 50 mg Q6H PRN IM For Anxiety 10/24/18 10:15 11/23/18 10:14 10/24/18 11:05 Insulin Aspart (NovoLOG) Q6HR SUBQ 10/22/18 18:00 11/21/18 17:59 10/26/18 00:22 Iopamidol (Isovue-300 100ml) 100 ml NOW PRN INJ Radiology Procedure 10/25/18 16:45 10/27/18 23:59 Lorazepam (Ativan 2mg/ml 1ml) 2 mg Q4H PRN IM For Anxiety 10/24/18 10:15 10/31/18 10:14 10/24/18 11:05 Lorazepam (Ativan) 2 mg Q6H PRN ORAL For Anxiety 10/22/18 11:45 10/29/18 11:44 10/24/18 07:22 Metoprolol Tartrate (Lopressor) 50 mg Q12HR ORAL 10/27/18 21:00 11/25/18 20:59 Metronidazole (Flagyl) 250 mg Q8HR ORAL 10/26/18 22:00 11/02/18 21:59 10/27/18 06:03 Ondansetron HCl (Zofran) 4 mg Q4H PRN IVP Nausea & Vomiting 10/18/18 20:30 11/17/18 20:29 10/20/18 10:17 Potassium Chloride (K-Dur) 40 meq BID ORAL 10/26/18 09:00 11/25/18 08:59 10/27/18 09:39 Laboratory Tests 10/27/18 09:55: White Blood Count 4.7L, Red Blood Count 4.62, Hemoglobin 12.4, Hematocrit 37.9, Mean Corpuscular Volume 82, Mean Corpuscular Hemoglobin 26.8L, Mean Corpuscular Hemoglobin Concent 32.6, Red Cell Distribution Width 12.5, Platelet Count 217, Mean Platelet Volume 6.5, Neutrophils (%) (Auto) 50.7, Lymphocytes (%) (Auto) 30.6, Monocytes (%) (Auto) 12.7H, Eosinophils (%) (Auto) 4.6H, Basophils (%) ( Auto) 1.3, Sodium Level 143, Potassium Level 3.8, Chloride Level 107, Carbon Dioxide Level 25, Anion Gap 12, Blood Urea Nitrogen 8, Creatinine 0.7, Estimat Glomerular Filtration Rate > 60, Glucose Level 157H, Calcium Level 8.8, Total Bilirubin 1.5H, Direct Bilirubin 0.3, Aspartate Amino Transf (AST/SGOT) 15, Alanine Aminotransferase (ALT/SGPT) 17, Alkaline Phosphatase 76, Total Protein 6.9, Albumin 2.9L, Globulin 4.0, Albumin/Globulin Ratio 0.7L Height (Feet): 5 Height (Inches): 3.00 Weight (Pounds): 163 Objective no change Familia Balderrama MD Oct 27, 2018 12:14
--- NOTE | 2018-10-27 12:24 | General Surgery Progress Note ---
General Surgery-Progress Note Subjective Symptoms: improved, pain absent, tolerating diet, passing flatus, BM Additional Comments doing much better today. pain improved. tolerating diet. no n/v/f/c. Objective Last 24 Hour Vital Signs Date Time Temp Pulse Resp B/P (MAP) Pulse Ox O2 Delivery O2 Flow Rate FiO2 10/27/18 09:39 130 101/72 10/27/18 09:00 Room Air 10/27/18 08:00 130 10/27/18 08:00 98.0 134 21 101/72 (82) 93 10/27/18 04:00 124 10/27/18 04:00 96.8 126 17 116/63 (80) 95 10/27/18 00:00 97.9 111 17 99/62 (74) 95 10/27/18 00:00 109 10/26/18 21:00 131 95/45 10/26/18 21:00 Room Air 10/26/18 20:00 132 10/26/18 20:00 96.3 131 17 95/45 (62) 97 10/26/18 16:00 97.6 131 18 114/64 (81) 97 10/26/18 15:14 127 I&O Intake and Output 10/26/18 10/27/18 19:00 07:00 Intake Total 1000 ml Balance 1000 ml Intake Oral 1000 ml # Voids 2 # Bowel Movements 1 Wound: clean, dry, intact Drains: none Cardiovascular: RSR Respiratory: clear Abdomen: soft, flat, non-tender, present bowel sounds Extremities: no tenderness, no cyanosis Laboratory Tests Test 10/27/18 09:55 White Blood Count 4.7 K/UL (4.8-10.8) L Red Blood Count 4.62 M/UL (4.20-5.40) Hemoglobin 12.4 G/DL (12.0-16.0) Hematocrit 37.9 % (37.0-47.0) Mean Corpuscular Volume 82 FL (80-99) Mean Corpuscular Hemoglobin 26.8 PG (27.0-31.0) L Mean Corpuscular Hemoglobin Concent 32.6 G/DL (32.0-36.0) Red Cell Distribution Width 12.5 % (11.6-14.8) Platelet Count 217 K/UL (150-450) Mean Platelet Volume 6.5 FL (6.5-10.1) Neutrophils (%) (Auto) 50.7 % (45.0-75.0) Lymphocytes (%) (Auto) 30.6 % (20.0-45.0) Monocytes (%) (Auto) 12.7 % (1.0-10.0) H Eosinophils (%) (Auto) 4.6 % (0.0-3.0) H Basophils (%) (Auto) 1.3 % (0.0-2.0) Sodium Level 143 MMOL/L (136-145) Potassium Level 3.8 MMOL/L (3.5-5.1) Chloride Level 107 MMOL/L (98-107) Carbon Dioxide Level 25 MMOL/L (21-32) Anion Gap 12 mmol/L (5-15) Blood Urea Nitrogen 8 mg/dL (7-18) Creatinine 0.7 MG/DL (0.55-1.30) Estimat Glomerular Filtration Rate > 60 mL/min (>60) Glucose Level 157 MG/DL (74-106) H Calcium Level 8.8 MG/DL (8.5-10.1) Total Bilirubin 1.5 MG/DL (0.2-1.0) H Direct Bilirubin 0.3 MG/DL (0.0-0.3) Aspartate Amino Transf (AST/SGOT) 15 U/L (15-37) Alanine Aminotransferase (ALT/SGPT) 17 U/L (12-78) Alkaline Phosphatase 76 U/L (46-116) Total Protein 6.9 G/DL (6.4-8.2) Albumin 2.9 G/DL (3.4-5.0) L Globulin 4.0 g/dL Albumin/Globulin Ratio 0.7 (1.0-2.7) L Plan Problems: (1) Abdominal pain Assessment & Plan: abdominal pain n/v resolved labs noted. abd soft, distention, tender/guarding but no peritonitis. surgical wounds c/d/i CT noted. very concerning. CT findings do not correlate with clinical exam as she has been afebrile without peritonitis. now low grade fevers. discussed findings with her primary Surgeon from [facility] Likely infectious colitis as clinically does not seem ischemic. When discussing with primary surgeon he states he would be okay to have her transferred to [facility] for continued care post op. I anticipate with severity of colitis, bowel edema, pneumatosis this will take some time to recover prior to resuming diet. KUB noted labs noted patient pull out lines exam improved. labs okay. exam improved tolerating diet repeat CT with significant improvement! regular diet IV abx --> can transition to oral d/c planning will follow with recs. thank you José Miguel Flores Oct 27, 2018 12:23
--- NOTE | 2018-10-27 14:12 | GI Progress Note ---
Assessment/Plan Problems: (1) H/O abdominal surgery ICD Codes: Z98.890 - Other specified postprocedural states SNOMED: 758709669, 044262333 (2) Weight loss ICD Codes: R63.4 - Abnormal weight loss SNOMED: 98018681, 744880026 (3) Dehydration ICD Codes: E86.0 - Dehydration SNOMED: 25671796 (4) Abdominal pain ICD Codes: R10.9 - Unspecified abdominal pain SNOMED: 91663092 Qualifiers: Qualified Codes: R10.84 - Generalized abdominal pain (5) Nausea & vomiting ICD Codes: R11.2 - Nausea with vomiting, unspecified SNOMED: 12062744 Qualifiers: Qualified Codes: R11.2 - Nausea with vomiting, unspecified Status: progressing Status Narrative Discussed with Dr. Benton. Assessment/Plan repeat CT AP reviewed >> Since prior study 10/20/2018, previously demonstrated proximal colonic distention and pneumatosis have resolved, and wall thickening has improved. There is persistent inflammatory change of the left upper quadrant. This may reflect either residual inflammation related to colitis, or residual inflammatory changes related to surgery 3 weeks ago. No evidence of abscess, obstruction, or anastomotic leakage. history of recent abdominal surgery N/V has resolved at this time fu surgical recs CLD, advance as tolerated bowel rest pain mgmt zofran prn IV hydration fu labs The patient was seen and examined at bedside and all new and available data was reviewed in the patients chart. I agree with the above findings, impression and plan. (Patient seen earlier today. Signature stamp does not reflect patient encounter time.). - Pritesh Benton MD Subjective Subjective The patient is currently on clear liquid diet Unable to tolerate at this time, has complained of nausea without vomiting Ambulating Objective Last 24 Hour Vital Signs Date Time Temp Pulse Resp B/P (MAP) Pulse Ox O2 Delivery O2 Flow Rate FiO2 10/27/18 12:00 98.2 121 20 116/68 (84) 97 10/27/18 12:00 119 10/27/18 09:39 130 101/72 10/27/18 09:00 Room Air 10/27/18 08:00 130 10/27/18 08:00 98.0 134 21 101/72 (82) 93 10/27/18 04:00 124 10/27/18 04:00 96.8 126 17 116/63 (80) 95 10/27/18 00:00 97.9 111 17 99/62 (74) 95 10/27/18 00:00 109 10/26/18 21:00 131 95/45 10/26/18 21:00 Room Air 10/26/18 20:00 132 10/26/18 20:00 96.3 131 17 95/45 (62) 97 10/26/18 16:00 97.6 131 18 114/64 (81) 97 10/26/18 15:14 127 Intake and Output 10/26/18 10/27/18 19:00 07:00 Intake Total 1000 ml Balance 1000 ml Intake Oral 1000 ml # Voids 2 # Bowel Movements 1 Laboratory Tests Test 10/27/18 09:55 White Blood Count 4.7 K/UL (4.8-10.8) L Red Blood Count 4.62 M/UL (4.20-5.40) Hemoglobin 12.4 G/DL (12.0-16.0) Hematocrit 37.9 % (37.0-47.0) Mean Corpuscular Volume 82 FL (80-99) Mean Corpuscular Hemoglobin 26.8 PG (27.0-31.0) L Mean Corpuscular Hemoglobin Concent 32.6 G/DL (32.0-36.0) Red Cell Distribution Width 12.5 % (11.6-14.8) Platelet Count 217 K/UL (150-450) Mean Platelet Volume 6.5 FL (6.5-10.1) Neutrophils (%) (Auto) 50.7 % (45.0-75.0) Lymphocytes (%) (Auto) 30.6 % (20.0-45.0) Monocytes (%) (Auto) 12.7 % (1.0-10.0) H Eosinophils (%) (Auto) 4.6 % (0.0-3.0) H Basophils (%) (Auto) 1.3 % (0.0-2.0) Sodium Level 143 MMOL/L (136-145) Potassium Level 3.8 MMOL/L (3.5-5.1) Chloride Level 107 MMOL/L (98-107) Carbon Dioxide Level 25 MMOL/L (21-32) Anion Gap 12 mmol/L (5-15) Blood Urea Nitrogen 8 mg/dL (7-18) Creatinine 0.7 MG/DL (0.55-1.30) Estimat Glomerular Filtration Rate > 60 mL/min (>60) Glucose Level 157 MG/DL (74-106) H Calcium Level 8.8 MG/DL (8.5-10.1) Total Bilirubin 1.5 MG/DL (0.2-1.0) H Direct Bilirubin 0.3 MG/DL (0.0-0.3) Aspartate Amino Transf (AST/SGOT) 15 U/L (15-37) Alanine Aminotransferase (ALT/SGPT) 17 U/L (12-78) Alkaline Phosphatase 76 U/L (46-116) Total Protein 6.9 G/DL (6.4-8.2) Albumin 2.9 G/DL (3.4-5.0) L Globulin 4.0 g/dL Albumin/Globulin Ratio 0.7 (1.0-2.7) L Height (Feet): 5 Height (Inches): 3.00 Weight (Pounds): 163 General Appearance: WD/WN, no apparent distress, alert Cardiovascular: normal rate Respiratory/Chest: normal breath sounds, no respiratory distress Abdominal Exam: normal bowel sounds, non tender, soft Extremities: normal range of motion, non-tender Keyonna Giang NP Oct 27, 2018 14:12
--- NOTE | 2018-10-27 15:14 | Cardiology Report ---
APPROVED REPORT EKG Measurement Heart [id number] [id number] Sinus tachycardia Left axis deviation Septal infarct, age undetermined Abnormal ECG
--- NOTE | 2018-10-27 15:18 | Infectious Diseases Prog Note ---
Assessment/Plan Problems: (1) Pneumatosis intestinalis of large intestine Assessment & Plan: at the anastomosis site, suspect ischemia related to recent surgery or infection with bacterial overgrowth , improved on repeated CT scan and clinically , continue oral ciprofloxacin and metronidazole for 5 more days . follow up with surgery (2) UTI (urinary tract infection) Assessment & Plan: with small colonies of VRE and pseudomonas aeruginosa , most likely contaminant (3) Abdominal pain Assessment & Plan: due to the above, continue pain management as needed (4) Tachycardia Assessment & Plan: unclear etiology , repeated blood culture remains negative so far with no evidence of sepsis , monitor in tele , on beta blockers cardiology is following Subjective Constitutional: Reports: no symptoms HEENT: Reports: no symptoms Respiratory: Reports: no symptoms Breasts: Reports: no symptoms Cardiovascular: Reports: no symptoms Gastrointestinal/Abdominal: Reports: no symptoms Genitourinary: Reports: no symptoms Neurologic: Reports: no symptoms Psychiatric: Reports: no symptoms Skin: Reports: no symptoms Endocrine: Reports: no symptoms Hematologic: Reports: no symptoms Musculoskeletal: Reports: no symptoms Allergies: Coded Allergies: No Known Allergies (Unverified , 10/18/18) Objective Vital Signs Last 24 Hour Vital Signs Date Time Temp Pulse Resp B/P (MAP) Pulse Ox O2 Delivery O2 Flow Rate FiO2 10/27/18 12:00 98.2 121 20 116/68 (84) 97 10/27/18 12:00 119 10/27/18 09:39 130 101/72 10/27/18 09:00 Room Air 10/27/18 08:00 130 10/27/18 08:00 98.0 134 21 101/72 (82) 93 10/27/18 04:00 124 10/27/18 04:00 96.8 126 17 116/63 (80) 95 10/27/18 00:00 97.9 111 17 99/62 (74) 95 10/27/18 00:00 109 10/26/18 21:00 131 95/45 10/26/18 21:00 Room Air 10/26/18 20:00 132 10/26/18 20:00 96.3 131 17 95/45 (62) 97 10/26/18 16:00 97.6 131 18 114/64 (81) 97 Height (Feet): 5 Height (Inches): 3.00 Weight (Pounds): 163 General Appearance: WD/WN, no acute distress HEENT: normocephalic, atraumatic, anicteric, mucous membranes moist, PERRL, EOMI, pharynx normal, supple, no JVD Respiratory/Chest: chest wall non-tender, lungs clear, normal breath sounds, no respiratory distress, no accessory muscle use, respiratory distress Breasts: no masses Cardiovascular: normal peripheral pulses, normal rate, regular rhythm, no gallop/murmur, no JVD Abdomen: normal bowel sounds, soft, non tender, no organomegaly, non distended , no mass, no scars Extremities: no cyanosis, no clubbing Skin: no rash, no lesions, no ulcers Neurologic/Psychiatric: alert, oriented x 3, responsive Lymphatic: no neck adenopathy, no groin adenopathy Musculoskeletal: normal muscle bulk, no effusion Laboratory Tests Test 10/27/18 09:55 White Blood Count 4.7 K/UL (4.8-10.8) L Red Blood Count 4.62 M/UL (4.20-5.40) Hemoglobin 12.4 G/DL (12.0-16.0) Hematocrit 37.9 % (37.0-47.0) Mean Corpuscular Volume 82 FL (80-99) Mean Corpuscular Hemoglobin 26.8 PG (27.0-31.0) L Mean Corpuscular Hemoglobin Concent 32.6 G/DL (32.0-36.0) Red Cell Distribution Width 12.5 % (11.6-14.8) Platelet Count 217 K/UL (150-450) Mean Platelet Volume 6.5 FL (6.5-10.1) Neutrophils (%) (Auto) 50.7 % (45.0-75.0) Lymphocytes (%) (Auto) 30.6 % (20.0-45.0) Monocytes (%) (Auto) 12.7 % (1.0-10.0) H Eosinophils (%) (Auto) 4.6 % (0.0-3.0) H Basophils (%) (Auto) 1.3 % (0.0-2.0) Sodium Level 143 MMOL/L (136-145) Potassium Level 3.8 MMOL/L (3.5-5.1) Chloride Level 107 MMOL/L (98-107) Carbon Dioxide Level 25 MMOL/L (21-32) Anion Gap 12 mmol/L (5-15) Blood Urea Nitrogen 8 mg/dL (7-18) Creatinine 0.7 MG/DL (0.55-1.30) Estimat Glomerular Filtration Rate > 60 mL/min (>60) Glucose Level 157 MG/DL (74-106) H Calcium Level 8.8 MG/DL (8.5-10.1) Total Bilirubin 1.5 MG/DL (0.2-1.0) H Direct Bilirubin 0.3 MG/DL (0.0-0.3) Aspartate Amino Transf (AST/SGOT) 15 U/L (15-37) Alanine Aminotransferase (ALT/SGPT) 17 U/L (12-78) Alkaline Phosphatase 76 U/L (46-116) Total Protein 6.9 G/DL (6.4-8.2) Albumin 2.9 G/DL (3.4-5.0) L Globulin 4.0 g/dL Albumin/Globulin Ratio 0.7 (1.0-2.7) L Current Medications Medications (Trade) Dose Ordered Sig/Leatha Route PRN Reason Start Time Stop Time Status Last Admin Dose Admin Ciprofloxacin (Cipro 250mg tab) 250 mg EVERY 12 HOURS ORAL 10/26/18 21:00 11/02/18 20:59 10/27/18 09:39 Clonazepam (KlonoPIN) 0.5 mg BEDTIME ORAL 10/22/18 21:00 10/29/18 20:59 10/26/18 21:05 Dextrose (Dextrose 50%) 25 ml Q30M PRN IV Hypoglycemia 10/22/18 11:00 11/21/18 10:59 Dextrose (Dextrose 50%) 50 ml Q30M PRN IV Hypoglycemia 10/22/18 11:00 11/21/18 10:59 Diatrizoate Meglum/ Diatrizoate Sod (Gastrografin) 30 ml NOW PRN ORAL Radiology Procedure 10/25/18 16:45 10/27/18 23:59 Diphenhydramine HCl (Benadryl) 50 mg Q6H PRN IM For Anxiety 10/24/18 10:15 11/23/18 10:14 10/24/18 11:05 Insulin Aspart (NovoLOG) Q6HR SUBQ 10/22/18 18:00 11/21/18 17:59 10/26/18 00:22 Iopamidol (Isovue-300 100ml) 100 ml NOW PRN INJ Radiology Procedure 10/25/18 16:45 10/27/18 23:59 Lorazepam (Ativan 2mg/ml 1ml) 2 mg Q4H PRN IM For Anxiety 10/24/18 10:15 10/31/18 10:14 10/24/18 11:05 Lorazepam (Ativan) 2 mg Q6H PRN ORAL For Anxiety 10/22/18 11:45 10/29/18 11:44 10/24/18 07:22 Metoprolol Tartrate (Lopressor) 50 mg Q12HR ORAL 10/27/18 21:00 11/25/18 20:59 Metronidazole (Flagyl) 250 mg Q8HR ORAL 10/26/18 22:00 11/02/18 21:59 10/27/18 06:03 Ondansetron HCl (Zofran) 4 mg Q4H PRN IVP Nausea & Vomiting 10/18/18 20:30 11/17/18 20:29 10/27/18 12:49 Potassium Chloride (K-Dur) 40 meq BID ORAL 10/26/18 09:00 11/25/18 08:59 10/27/18 09:39 Tahir Cervantes M.D. Oct 27, 2018 15:18
--- NOTE | 2018-10-27 15:21 | Nephrology Progress Note ---
Assessment/Plan Problem List: (1) UTI (urinary tract infection) (2) Electrolyte and fluid disorder (3) Tachycardia Assessment Acute encephalopathy improving Electrolyte imbalance while on TPN ( Low K and low Phos and low mag) h/o Abdominal surgery Weight loss Pneumatosis intestinalis of large intestine UTI (urinary tract infection) Abdominal pain Tachycardia Plan Plan: up dose lopressor K Phos and Mag supplement Monitor lytes Per GI and Surgery on Zosyn for UTI Subjective ROS Limited/Unobtainable: No Objective Objective Last 24 Hour Vital Signs Date Time Temp Pulse Resp B/P (MAP) Pulse Ox O2 Delivery O2 Flow Rate FiO2 10/27/18 12:00 98.2 121 20 116/68 (84) 97 10/27/18 12:00 119 10/27/18 09:39 130 101/72 10/27/18 09:00 Room Air 10/27/18 08:00 130 10/27/18 08:00 98.0 134 21 101/72 (82) 93 10/27/18 04:00 124 10/27/18 04:00 96.8 126 17 116/63 (80) 95 10/27/18 00:00 97.9 111 17 99/62 (74) 95 10/27/18 00:00 109 10/26/18 21:00 131 95/45 10/26/18 21:00 Room Air 10/26/18 20:00 132 10/26/18 20:00 96.3 131 17 95/45 (62) 97 10/26/18 16:00 97.6 131 18 114/64 (81) 97 10/26/18 15:14 127 Intake and Output 10/26/18 10/27/18 19:00 07:00 Intake Total 1000 ml Balance 1000 ml Intake Oral 1000 ml # Voids 2 # Bowel Movements 1 Laboratory Tests 10/27/18 09:55: White Blood Count 4.7L, Red Blood Count 4.62, Hemoglobin 12.4, Hematocrit 37.9, Mean Corpuscular Volume 82, Mean Corpuscular Hemoglobin 26.8L, Mean Corpuscular Hemoglobin Concent 32.6, Red Cell Distribution Width 12.5, Platelet Count 217, Mean Platelet Volume 6.5, Neutrophils (%) (Auto) 50.7, Lymphocytes (%) (Auto) 30.6, Monocytes (%) (Auto) 12.7H, Eosinophils (%) (Auto) 4.6H, Basophils (%) ( Auto) 1.3, Sodium Level 143, Potassium Level 3.8, Chloride Level 107, Carbon Dioxide Level 25, Anion Gap 12, Blood Urea Nitrogen 8, Creatinine 0.7, Estimat Glomerular Filtration Rate > 60, Glucose Level 157H, Calcium Level 8.8, Total Bilirubin 1.5H, Direct Bilirubin 0.3, Aspartate Amino Transf (AST/SGOT) 15, Alanine Aminotransferase (ALT/SGPT) 17, Alkaline Phosphatase 76, Total Protein 6.9, Albumin 2.9L, Globulin 4.0, Albumin/Globulin Ratio 0.7L Height (Feet): 5 Height (Inches): 3.00 Weight (Pounds): 163 General Appearance: no apparent distress Objective no change Familia Balderrama MD Oct 27, 2018 15:21
[2018-10-27 16:00] VITALS: BP 109/54
[2018-10-27 20:00] VITALS: BP 117/70
[2018-10-27] MEDS: Metoprolol Tartrate 50mg tab ORAL SCH (20:51)
[2018-10-27] MEDS: clonazePAM 0.5mg tab ORAL SCH (20:51)
--- NOTE | 2018-10-27 21:30 | Progress Note ---
DATE: 10/27/2018 SUBJECTIVE: This is an elderly female, currently doing better. Had an episode of vomiting one time, probably being on soft diet. OBJECTIVE: VITAL SIGNS: fever. CHEST: Bilaterally clear. CARDIOVASCULAR: Regular rhythm. ABDOMEN: Mild tenderness is improving. GENITOURINARY: Deferred. ASSESSMENT AND PLAN: 1. acute colitis. 2. Abdominal pain. 3. Dehydration. 4. History of . DIET: She is on soft diet. PLAN: We will discontinue IV fluids. Continue current antibiotics. Continue Zolpidem as needed. Mark Meehan M.D. DR: RADHA JOB#: [id number] CC:
[2018-10-28] VITALS: BP 93/52
--- NOTE | 2018-10-28 00:27 | General Progress Note ---
Assessment/Plan Assessment/Plan anxiety d/o ativan prn the pt was provided with st/ro klonopin .5mg qhs the pt has capacity to make decisions/ Subjective Date patient seen: Oct 26, 2018 Neurologic/Psychiatric: Reports: anxiety, depressed Allergies: Coded Allergies: No Known Allergies (Unverified , 10/18/18) Subjective the pt cont to be agitated Objective Last 24 Hour Vital Signs Date Time Temp Pulse Resp B/P (MAP) Pulse Ox O2 Delivery O2 Flow Rate FiO2 10/27/18 21:00 Room Air 10/27/18 20:51 128 109/54 10/27/18 20:00 128 10/27/18 20:00 99.7 128 21 117/70 (86) 93 10/27/18 16:00 128 10/27/18 16:00 98.0 127 21 109/54 (72) 96 10/27/18 12:00 98.2 121 20 116/68 (84) 97 10/27/18 12:00 119 10/27/18 09:39 130 101/72 10/27/18 09:00 Room Air 10/27/18 08:00 130 10/27/18 08:00 98.0 134 21 101/72 (82) 93 10/27/18 04:00 124 10/27/18 04:00 96.8 126 17 116/63 (80) 95 Intake and Output 10/27/18 10/28/18 19:00 07:00 Intake Total 560 ml Balance 560 ml Intake Oral 560 ml Laboratory Tests 10/27/18 09:55: White Blood Count 4.7L, Red Blood Count 4.62, Hemoglobin 12.4, Hematocrit 37.9, Mean Corpuscular Volume 82, Mean Corpuscular Hemoglobin 26.8L, Mean Corpuscular Hemoglobin Concent 32.6, Red Cell Distribution Width 12.5, Platelet Count 217, Mean Platelet Volume 6.5, Neutrophils (%) (Auto) 50.7, Lymphocytes (%) (Auto) 30.6, Monocytes (%) (Auto) 12.7H, Eosinophils (%) (Auto) 4.6H, Basophils (%) ( Auto) 1.3, Sodium Level 143, Potassium Level 3.8, Chloride Level 107, Carbon Dioxide Level 25, Anion Gap 12, Blood Urea Nitrogen 8, Creatinine 0.7, Estimat Glomerular Filtration Rate > 60, Glucose Level 157H, Calcium Level 8.8, Total Bilirubin 1.5H, Direct Bilirubin 0.3, Aspartate Amino Transf (AST/SGOT) 15, Alanine Aminotransferase (ALT/SGPT) 17, Alkaline Phosphatase 76, Total Protein 6.9, Albumin 2.9L, Globulin 4.0, Albumin/Globulin Ratio 0.7L Height (Feet): 5 Height (Inches): 3.00 Weight (Pounds): 163 General Appearance: alert, agitated Anna Camacho MD Oct 28, 2018 00:27
--- NOTE | 2018-10-28 00:28 | General Progress Note ---
Assessment/Plan Assessment/Plan anxiety d/o ativan prn the pt was provided with st/ro klonopin .5mg qhs the pt has capacity to make decisions/ Subjective Date patient seen: Oct 27, 2018 Neurologic/Psychiatric: Reports: anxiety, depressed Allergies: Coded Allergies: No Known Allergies (Unverified , 10/18/18) Subjective the pt was calm Objective Last 24 Hour Vital Signs Date Time Temp Pulse Resp B/P (MAP) Pulse Ox O2 Delivery O2 Flow Rate FiO2 10/27/18 21:00 Room Air 10/27/18 20:51 128 109/54 10/27/18 20:00 128 10/27/18 20:00 99.7 128 21 117/70 (86) 93 10/27/18 16:00 128 10/27/18 16:00 98.0 127 21 109/54 (72) 96 10/27/18 12:00 98.2 121 20 116/68 (84) 97 10/27/18 12:00 119 10/27/18 09:39 130 101/72 10/27/18 09:00 Room Air 10/27/18 08:00 130 10/27/18 08:00 98.0 134 21 101/72 (82) 93 10/27/18 04:00 124 10/27/18 04:00 96.8 126 17 116/63 (80) 95 Intake and Output 10/27/18 10/28/18 19:00 07:00 Intake Total 560 ml Balance 560 ml Intake Oral 560 ml Laboratory Tests 10/27/18 09:55: White Blood Count 4.7L, Red Blood Count 4.62, Hemoglobin 12.4, Hematocrit 37.9, Mean Corpuscular Volume 82, Mean Corpuscular Hemoglobin 26.8L, Mean Corpuscular Hemoglobin Concent 32.6, Red Cell Distribution Width 12.5, Platelet Count 217, Mean Platelet Volume 6.5, Neutrophils (%) (Auto) 50.7, Lymphocytes (%) (Auto) 30.6, Monocytes (%) (Auto) 12.7H, Eosinophils (%) (Auto) 4.6H, Basophils (%) ( Auto) 1.3, Sodium Level 143, Potassium Level 3.8, Chloride Level 107, Carbon Dioxide Level 25, Anion Gap 12, Blood Urea Nitrogen 8, Creatinine 0.7, Estimat Glomerular Filtration Rate > 60, Glucose Level 157H, Calcium Level 8.8, Total Bilirubin 1.5H, Direct Bilirubin 0.3, Aspartate Amino Transf (AST/SGOT) 15, Alanine Aminotransferase (ALT/SGPT) 17, Alkaline Phosphatase 76, Total Protein 6.9, Albumin 2.9L, Globulin 4.0, Albumin/Globulin Ratio 0.7L Height (Feet): 5 Height (Inches): 3.00 Weight (Pounds): 163 General Appearance: alert, agitated Anna Camacho MD Oct 28, 2018 00:28
[2018-10-28 04:00] VITALS: BP 119/68
[2018-10-28] MEDS: metroNIDAZOLE 250mg tab ORAL SCH (05:54)
[2018-10-28] MEDS: NovoLOG Insulin Flexpen SUBQ SCH ×2 (06:30→11:30)
--- NOTE | 2018-10-28 07:44 | Cardiology Report ---
APPROVED REPORT EKG Measurement Heart [id number] Sinus tachycardia Otherwise normal ECG
--- NOTE | 2018-10-28 07:49 | Cardiology Report ---
APPROVED REPORT EKG Measurement Heart [id number] Normal sinus rhythm Left axis deviation Cannot rule out Anterior infarct, age undetermined Abnormal ECG
[2018-10-28 08:00] VITALS: BP 115/68
[2018-10-28 08:32] VITALS: BP 115/68
[2018-10-28] MEDS: Metoprolol Tartrate 50mg tab ORAL SCH (08:32)
[2018-10-28 09:09] LABS: BASOPHILS % (AUTO) 0.5 % (0.0-2.0); EOSINOPHILS % (AUTO) 6.5 % (0.0-3.0); HEMATOCRIT 37.5 % (37.0-47.0); HEMOGLOBIN 12.4 G/DL (12.0-16.0); LYMPHOCYTES % (AUTO) 30.8 % (20.0-45.0); MEAN CORPUSCULAR VOLUME 81 FL (80-99); MONOCYTES % (AUTO) 10.9 % (1.0-10.0); NEUTROPHILS % (AUTO) 51.3 % (45.0-75.0); PLATELET COUNT 204 K/UL (150-450); RED CELL DISTRIBUTION WIDTH 12.6 % (11.6-14.8); WHITE BLOOD COUNT 4.2 K/UL (4.8-10.8)
[2018-10-28 09:49] LABS: ANION GAP 7 mmol/L (5-15); BLOOD UREA NITROGEN 7 mg/dL (7-18); CALCIUM 8.7 MG/DL (8.5-10.1); CARBON DIOXIDE 26 MMOL/L (21-32); CHLORIDE 108 MMOL/L (98-107); CREATININE 0.7 MG/DL (0.55-1.30); POTASSIUM 3.9 MMOL/L (3.5-5.1); SODIUM 141 MMOL/L (136-145)
[2018-10-28] MEDS ORDERED: CIPROFLOXA250 MG/5 M PO (10:19)
[2018-10-28] MEDS ORDERED: METRONIDAZOLE250 MG ORAL (10:20)
--- NOTE | 2018-10-28 10:35 | GI Progress Note ---
Assessment/Plan Problems: (1) H/O abdominal surgery ICD Codes: Z98.890 - Other specified postprocedural states SNOMED: 605542024, 552708010 (2) Weight loss ICD Codes: R63.4 - Abnormal weight loss SNOMED: 00949161, 395897145 (3) Dehydration ICD Codes: E86.0 - Dehydration SNOMED: 69497026 (4) Abdominal pain ICD Codes: R10.9 - Unspecified abdominal pain SNOMED: 36621498 Qualifiers: Qualified Codes: R10.84 - Generalized abdominal pain (5) Nausea & vomiting ICD Codes: R11.2 - Nausea with vomiting, unspecified SNOMED: 81397383 Qualifiers: Qualified Codes: R11.2 - Nausea with vomiting, unspecified Status: stable Status Narrative Discussed with Dr. Benton. Assessment/Plan repeat CT AP reviewed >> Since prior study 10/20/2018, previously demonstrated proximal colonic distention and pneumatosis have resolved, and wall thickening has improved. There is persistent inflammatory change of the left upper quadrant. This may reflect either residual inflammation related to colitis, or residual inflammatory changes related to surgery 3 weeks ago. No evidence of abscess, obstruction, or anastomotic leakage. history of recent abdominal surgery N/V has resolved at this time fu surgical recs regular diet, tolerating bowel rest pain mgmt zofran prn IV hydration fu labs no GI interventions, dc planning The patient was seen and examined at bedside and all new and available data was reviewed in the patients chart. I agree with the above findings, impression and plan. (Patient seen earlier today. Signature stamp does not reflect patient encounter time.). - Pritesh Benton MD Subjective Subjective Patient is currently on a regular diet, tolerating Denies any nausea or vomiting Wants to be discharge Objective Last 24 Hour Vital Signs Date Time Temp Pulse Resp B/P (MAP) Pulse Ox O2 Delivery O2 Flow Rate FiO2 10/28/18 09:00 Room Air 10/28/18 08:32 122 115/68 10/28/18 08:00 97.5 122 21 115/68 (84) 96 10/28/18 04:00 98.1 119 18 119/68 (85) 94 10/28/18 04:00 118 10/28/18 00:00 97.7 112 20 93/52 (66) 96 10/27/18 21:00 Room Air 10/27/18 20:51 128 109/54 10/27/18 20:00 128 10/27/18 20:00 99.7 128 21 117/70 (86) 93 10/27/18 16:00 128 10/27/18 16:00 98.0 127 21 109/54 (72) 96 10/27/18 12:00 98.2 121 20 116/68 (84) 97 10/27/18 12:00 119 Intake and Output 10/27/18 10/28/18 19:00 07:00 Intake Total 560 ml 100 ml Balance 560 ml 100 ml Intake Oral 560 ml 100 ml Laboratory Tests Test 10/28/18 08:50 White Blood Count 4.2 K/UL (4.8-10.8) L Red Blood Count 4.60 M/UL (4.20-5.40) Hemoglobin 12.4 G/DL (12.0-16.0) Hematocrit 37.5 % (37.0-47.0) Mean Corpuscular Volume 81 FL (80-99) Mean Corpuscular Hemoglobin 27.0 PG (27.0-31.0) Mean Corpuscular Hemoglobin Concent 33.1 G/DL (32.0-36.0) Red Cell Distribution Width 12.6 % (11.6-14.8) Platelet Count 204 K/UL (150-450) Mean Platelet Volume 6.6 FL (6.5-10.1) Neutrophils (%) (Auto) 51.3 % (45.0-75.0) Lymphocytes (%) (Auto) 30.8 % (20.0-45.0) Monocytes (%) (Auto) 10.9 % (1.0-10.0) H Eosinophils (%) (Auto) 6.5 % (0.0-3.0) H Basophils (%) (Auto) 0.5 % (0.0-2.0) Sodium Level 141 MMOL/L (136-145) Potassium Level 3.9 MMOL/L (3.5-5.1) Chloride Level 108 MMOL/L (98-107) H Carbon Dioxide Level 26 MMOL/L (21-32) Anion Gap 7 mmol/L (5-15) Blood Urea Nitrogen 7 mg/dL (7-18) Creatinine 0.7 MG/DL (0.55-1.30) Estimat Glomerular Filtration Rate > 60 mL/min (>60) Glucose Level 152 MG/DL (74-106) H Calcium Level 8.7 MG/DL (8.5-10.1) Height (Feet): 5 Height (Inches): 3.00 Weight (Pounds): 142 General Appearance: WD/WN, no apparent distress, alert Cardiovascular: normal rate Respiratory/Chest: normal breath sounds, no respiratory distress Abdominal Exam: normal bowel sounds, non tender, soft Extremities: normal range of motion, non-tender Keyonna Giang NP Oct 28, 2018 10:35
--- NOTE | 2018-10-28 13:41 | Cardiac Electrophysiology PN ---
Assessment/Plan Assessment/Plan 1. Sinus tachycardia. 12-lead EKG shows sinus tach . Had short runs of SVTs. EF 75%. On Lopressor t50 mg po bid 2. Abdominal pain. On IV fluids. CT findings were reviewed by Dr. Flores significant improvement. 3. Anemia. DC in progress Subjective Subjective No events. DC in progress. Objective Last 24 Hour Vital Signs Date Time Temp Pulse Resp B/P (MAP) Pulse Ox O2 Delivery O2 Flow Rate FiO2 10/28/18 09:00 Room Air 10/28/18 08:32 122 115/68 10/28/18 08:00 97.5 122 21 115/68 (84) 96 10/28/18 04:00 98.1 119 18 119/68 (85) 94 10/28/18 04:00 118 10/28/18 00:00 97.7 112 20 93/52 (66) 96 10/27/18 21:00 Room Air 10/27/18 20:51 128 109/54 10/27/18 20:00 128 10/27/18 20:00 99.7 128 21 117/70 (86) 93 10/27/18 16:00 128 10/27/18 16:00 98.0 127 21 109/54 (72) 96 Intake and Output 10/27/18 10/28/18 19:00 07:00 Intake Total 560 ml 100 ml Balance 560 ml 100 ml Intake Oral 560 ml 100 ml Laboratory Tests Test 10/28/18 08:50 White Blood Count 4.2 K/UL (4.8-10.8) L Red Blood Count 4.60 M/UL (4.20-5.40) Hemoglobin 12.4 G/DL (12.0-16.0) Hematocrit 37.5 % (37.0-47.0) Mean Corpuscular Volume 81 FL (80-99) Mean Corpuscular Hemoglobin 27.0 PG (27.0-31.0) Mean Corpuscular Hemoglobin Concent 33.1 G/DL (32.0-36.0) Red Cell Distribution Width 12.6 % (11.6-14.8) Platelet Count 204 K/UL (150-450) Mean Platelet Volume 6.6 FL (6.5-10.1) Neutrophils (%) (Auto) 51.3 % (45.0-75.0) Lymphocytes (%) (Auto) 30.8 % (20.0-45.0) Monocytes (%) (Auto) 10.9 % (1.0-10.0) H Eosinophils (%) (Auto) 6.5 % (0.0-3.0) H Basophils (%) (Auto) 0.5 % (0.0-2.0) Sodium Level 141 MMOL/L (136-145) Potassium Level 3.9 MMOL/L (3.5-5.1) Chloride Level 108 MMOL/L (98-107) H Carbon Dioxide Level 26 MMOL/L (21-32) Anion Gap 7 mmol/L (5-15) Blood Urea Nitrogen 7 mg/dL (7-18) Creatinine 0.7 MG/DL (0.55-1.30) Estimat Glomerular Filtration Rate > 60 mL/min (>60) Glucose Level 152 MG/DL (74-106) H Calcium Level 8.7 MG/DL (8.5-10.1) Objective HEAD AND NECK: No VD. LUNGS: Clear. CARDIOVASCULAR: Regular S1 and S2 with no gallop or murmur. ABDOMEN: Soft. Status post laparoscopic surgery. EXTREMITIES: No pitting edema. Abe Armendariz MD Oct 28, 2018 13:41
--- NOTE | 2018-10-28 15:14 | General Progress Note ---
Assessment/Plan Assessment/Plan anxiety d/o ativan prn the pt was provided with st/ro klonopin .5mg qhs the pt has capacity to make decisions/ Subjective Allergies: Coded Allergies: No Known Allergies (Unverified , 10/18/18) Subjective the pt was calm Objective Last 24 Hour Vital Signs Date Time Temp Pulse Resp B/P (MAP) Pulse Ox O2 Delivery O2 Flow Rate FiO2 10/28/18 09:00 Room Air 10/28/18 08:32 122 115/68 10/28/18 08:00 97.5 122 21 115/68 (84) 96 10/28/18 04:00 98.1 119 18 119/68 (85) 94 10/28/18 04:00 118 10/28/18 00:00 97.7 112 20 93/52 (66) 96 10/27/18 21:00 Room Air 10/27/18 20:51 128 109/54 10/27/18 20:00 128 10/27/18 20:00 99.7 128 21 117/70 (86) 93 10/27/18 16:00 128 10/27/18 16:00 98.0 127 21 109/54 (72) 96 Intake and Output 10/27/18 10/28/18 19:00 07:00 Intake Total 560 ml 100 ml Balance 560 ml 100 ml Intake Oral 560 ml 100 ml Laboratory Tests 10/28/18 08:50: White Blood Count 4.2L, Red Blood Count 4.60, Hemoglobin 12.4, Hematocrit 37.5, Mean Corpuscular Volume 81, Mean Corpuscular Hemoglobin 27.0, Mean Corpuscular Hemoglobin Concent 33.1, Red Cell Distribution Width 12.6, Platelet Count 204, Mean Platelet Volume 6.6, Neutrophils (%) (Auto) 51.3, Lymphocytes (%) (Auto) 30.8, Monocytes (%) (Auto) 10.9H, Eosinophils (%) (Auto) 6.5H, Basophils (%) ( Auto) 0.5, Sodium Level 141, Potassium Level 3.9, Chloride Level 108H, Carbon Dioxide Level 26, Anion Gap 7, Blood Urea Nitrogen 7, Creatinine 0.7, Estimat Glomerular Filtration Rate > 60, Glucose Level 152H, Calcium Level 8.7 Height (Feet): 5 Height (Inches): 3.00 Weight (Pounds): 142 Anna Camacho MD Oct 28, 2018 15:14
--- NOTE | 2018-10-28 16:26 | Infectious Diseases Prog Note ---
Assessment/Plan Problems: (1) Pneumatosis intestinalis of large intestine Assessment & Plan: at the anastomosis site, suspect ischemia related to recent surgery or infection with bacterial overgrowth , improved on repeated CT scan and clinically , continue oral ciprofloxacin and metronidazole for 4 more days . follow up with surgery (2) UTI (urinary tract infection) Assessment & Plan: with small colonies of VRE and pseudomonas aeruginosa , most likely contaminant (3) Abdominal pain Assessment & Plan: due to the above, resolved. (4) Tachycardia Assessment & Plan: unclear etiology , repeated blood culture remains negative so far with no evidence of sepsis , on beta blockers , follow up with cardiology Assessment/Plan time of the stamp dosen't reflect time patient was seen Subjective Constitutional: Reports: no symptoms HEENT: Reports: no symptoms Respiratory: Reports: no symptoms Breasts: Reports: no symptoms Cardiovascular: Reports: no symptoms Gastrointestinal/Abdominal: Reports: no symptoms Genitourinary: Reports: no symptoms Neurologic: Reports: no symptoms Psychiatric: Reports: no symptoms Skin: Reports: no symptoms Endocrine: Reports: no symptoms Hematologic: Reports: no symptoms Musculoskeletal: Reports: no symptoms Allergies: Coded Allergies: No Known Allergies (Unverified , 10/18/18) Objective Vital Signs Last 24 Hour Vital Signs Date Time Temp Pulse Resp B/P (MAP) Pulse Ox O2 Delivery O2 Flow Rate FiO2 10/28/18 09:00 Room Air 10/28/18 08:32 122 115/68 10/28/18 08:00 97.5 122 21 115/68 (84) 96 10/28/18 04:00 98.1 119 18 119/68 (85) 94 10/28/18 04:00 118 10/28/18 00:00 97.7 112 20 93/52 (66) 96 10/27/18 21:00 Room Air 10/27/18 20:51 128 109/54 10/27/18 20:00 128 10/27/18 20:00 99.7 128 21 117/70 (86) 93 Height (Feet): 5 Height (Inches): 3.00 Weight (Pounds): 142 General Appearance: WD/WN, no acute distress HEENT: normocephalic, atraumatic, anicteric, mucous membranes moist, PERRL Respiratory/Chest: chest wall non-tender, lungs clear, normal breath sounds, no respiratory distress, no accessory muscle use Cardiovascular: normal peripheral pulses, normal rate, regular rhythm, no gallop/murmur, no JVD Abdomen: normal bowel sounds, soft, non tender, no organomegaly, non distended , no mass Extremities: no cyanosis, no clubbing Skin: no rash, no lesions, no ulcers Neurologic/Psychiatric: alert, oriented x 3, responsive Lymphatic: no neck adenopathy, no groin adenopathy Musculoskeletal: normal muscle bulk, no effusion Laboratory Tests Test 10/28/18 08:50 White Blood Count 4.2 K/UL (4.8-10.8) L Red Blood Count 4.60 M/UL (4.20-5.40) Hemoglobin 12.4 G/DL (12.0-16.0) Hematocrit 37.5 % (37.0-47.0) Mean Corpuscular Volume 81 FL (80-99) Mean Corpuscular Hemoglobin 27.0 PG (27.0-31.0) Mean Corpuscular Hemoglobin Concent 33.1 G/DL (32.0-36.0) Red Cell Distribution Width 12.6 % (11.6-14.8) Platelet Count 204 K/UL (150-450) Mean Platelet Volume 6.6 FL (6.5-10.1) Neutrophils (%) (Auto) 51.3 % (45.0-75.0) Lymphocytes (%) (Auto) 30.8 % (20.0-45.0) Monocytes (%) (Auto) 10.9 % (1.0-10.0) H Eosinophils (%) (Auto) 6.5 % (0.0-3.0) H Basophils (%) (Auto) 0.5 % (0.0-2.0) Sodium Level 141 MMOL/L (136-145) Potassium Level 3.9 MMOL/L (3.5-5.1) Chloride Level 108 MMOL/L (98-107) H Carbon Dioxide Level 26 MMOL/L (21-32) Anion Gap 7 mmol/L (5-15) Blood Urea Nitrogen 7 mg/dL (7-18) Creatinine 0.7 MG/DL (0.55-1.30) Estimat Glomerular Filtration Rate > 60 mL/min (>60) Glucose Level 152 MG/DL (74-106) H Calcium Level 8.7 MG/DL (8.5-10.1) Tahir Cervantes M.D. Oct 28, 2018 16:26
--- NOTE | 2018-10-28 20:15 | Discharge Summary ---
DATE OF ADMISSION: 10/18/2018 DATE OF DISCHARGE: 10/28/2018 DISCHARGE SUMMARY/PROGRESS NOTE HOSPITAL COURSE: This is an elderly female, who was initially admitted for abdominal pain, nausea, vomiting, possible small bowel obstruction, and abscess. The patient had a CT of head showing multiple pathological issues, fluid, as well as inflammation. The patient was kept NPO. Surgery consult was obtained. Gastrointestinal consult was also obtained. The patient was kept NPO 7 days. She was physically doing better. She was placed on IV antibiotics. ID, Surgery, and GI consult was obtained. The patient clinically improved. She has no nausea or vomiting. Tolerating liquid diet. ACTIVITY: As tolerated. DISCHARGE MEDICATIONS: The patient was given prescription for Levaquin and Tylenol for 5 days. Recommended follow up as an outpatient. DISCHARGE DIAGNOSES: 1. Abdominal abscess. 2. Status post laparotomy. 3. Colon cancer. DIET: She is on regular soft diet. Mark Meehan M.D. DR: RADHA JOB#: [id number] CC:
== END 2018-10-28 11:38 | disposition home health service (06) | DRG 386 ==
LOC: EDBD 13:42 → EMR 14:04 → EDBEDREQ 16:13 → 4E 17:49 → 2E 10-23 15:51
PROC: B518ZZA Fluoroscopy of Superior Vena Cava, Guidance (ICD-10-PCS; principal; 2018-10-22)
PROC: 02HV33Z Insertion of Infusion Device into Superior Vena Cava, Percutaneous Approach (ICD-10-PCS; principal; 2018-10-22)
DX: K51.00 Ulcerative (chronic) pancolitis without complications (principal); N39.0 Urinary tract infection, site not specified; C18.9 Malignant neoplasm of colon, unspecified; G93.40 Encephalopathy, unspecified; K63.89 Other specified diseases of intestine; E11.9 Type 2 diabetes mellitus without complications; I10 Essential (primary) hypertension; E87.8 Other disorders of electrolyte and fluid balance, not elsewhere classified; E86.0 Dehydration; F41.9 Anxiety disorder, unspecified; R63.4 Abnormal weight loss; R00.0 Tachycardia, unspecified; D64.9 Anemia, unspecified; D72.819 Decreased white blood cell count, unspecified
CPT/HCPCS: 36415; 36569; 71045; 74018; 74177; 76937; 80048; 80053; 80061; 81003; 82150; 82248; 82378; 82607; 82728; 82746; 82962; 82977; 83036; 83540; 83550; 83605; 83690; 83735; 83880; 84100; 84443; 84484; 84550; 85025; 85610; 85651; 85730; 86140; 86703; 86705; 86709; 86803; 87040; 87081; 87086; 87181; 87324; 87340; 93005; 93306; 96361; 96365; 96375; 99285; J1815; J2405; J8499